=== PATIENT | female | born 1970 | race African-American/Black ===

== ENCOUNTER 2017-10-18 13:52 | Emergency (ER) | payer OTHER | END 2017-10-18 15:39 | disposition home or self-care (01) | LOC: ER 13:52 | DX: M79.662 Pain in left lower leg (principal); I10 Essential (primary) hypertension; Z88.0 Allergy status to penicillin | CPT/HCPCS: 93971; 99284-25 ==

== ENCOUNTER → 2018-01-29 | Outpatient (CLI) | payer OTHER ==
[2017-10-18 13:54] VITALS: BP 127/75
[~2018-01-29] MED LIST: ACET500T68 PO; CALC-335 PO; CEPH500C PO; CYCL10TA2 PO; DOCU-109 PO; HYDR-2766 PO; LISI10TA2 PO; MELO7.5T29 PO; NAPR-514 PO; OSPE60TA2 PO; OXYC-323 PO; OXYC-411 PO; OXYC10TA45 PO; Oxycodone Hcl/Acetaminophen PO; SENN1TAB70 PO; TRIA10.8 NS; ZINC10LO4 PO
--- NOTE | 2018-01-29 13:50 | KCIC ---
EXAM: Pelvic sonogram. HISTORY: Pain. TECHNIQUE: Transabdominal sonographic imaging of the pelvis was performed. COMPARISON: None. FINDINGS: The uterus and ovaries are surgically absent. There is prominent bowel within the bilateral lower quadrants. No free fluid is seen. No mass or cystic lesion is seen. IMPRESSION: 1. Surgically absent uterus and ovaries. 2. Prominent bowel within the bilateral lower quadrants. Electronically signed by: Ca Lau MD (01/29/2018 1:46 PM) [place] [id number]
== END | disposition home or self-care (01) ==
LOC: KCIC US 09:04
PROVIDERS: ATTEND Internal Medicine
DX: R10.2 Pelvic and perineal pain (principal); I10 Essential (primary) hypertension; Z90.710 Acquired absence of both cervix and uterus; Z88.0 Allergy status to penicillin; Z82.49 Family history of ischemic heart disease and other diseases of the circulatory system; Z83.3 Family history of diabetes mellitus
CPT/HCPCS: 76857

== ENCOUNTER → 2019-10-18 | Outpatient (CLI) | payer OTHER ==
[2017-10-18 13:54] VITALS: BP 127/75
[~2019-10-18] MED LIST changes: -HYDR-2766 PO; +HYDR-2769 PO; -OXYC-323 PO; -OXYC10TA45 PO; +OXYC10TA46 PO; +OXYC1TAB15 PO
--- NOTE | 2019-10-18 13:35 | RAD ---
EXAM: Left lower extremity venous Doppler sonogram. HISTORY: Pain and swelling. TECHNIQUE: Hassan scale and color Doppler sonographic evaluation of the left lower extremity veins with spectral waveform analysis was performed. FINDINGS: There is normal color flow, normal compressibility and there are normal spectral waveforms in the common femoral, superficial femoral, popliteal, posterior tibial and greater saphenous veins. IMPRESSION: No Doppler evidence of lower extremity deep venous thrombosis. Electronically signed by: Ca Lau MD (10/18/2019 1:32 PM) [facility]
== END ==
LOC: US 12:08
PROVIDERS: ATTEND Internal Medicine
DX: M79.89 Other specified soft tissue disorders (principal); M79.605 Pain in left leg
CPT/HCPCS: 93971

== ENCOUNTER 2019-10-19 06:31 | Inpatient (IN) | payer OTHER ==
[2019-10-19] VITALS (19 sets, daily range): BP systolic 96–140; BP diastolic 48–87
[~2019-10-19] VITALS: Ht 170.2 cm; Wt 88.9 kg
[~2019-10-19 06:31] MED LIST changes: -OXYC-411 PO; +OXYC1TAB20 PO
[2019-10-19] MEDS ORDERED: FAMOTIDINE 20 MG/2 ML VIAL ONE (06:38)
[2019-10-19] MEDS ORDERED: diphenhydrAMINE 50 MG/ML VIAL ONE (06:38)
[2019-10-19] MEDS ORDERED: methylPREDNISolone SOD SUCC PF 125 MG/2 ML VIAL. ONE (06:39)
[2019-10-19] MEDS ORDERED: PROPOFOL 50 ML IV ONE ×2 (06:57→07:34)
[2019-10-19] MEDS ORDERED: methylPREDNISolone SOD SUCC PF 125 MG/2 ML VIAL. IV ONE (07:00)
[2019-10-19] MEDS ORDERED: diphenhydrAMINE 50 MG/ML VIAL IVP ONE (07:00)
[2019-10-19] MEDS ORDERED: fentaNYL PF VIAL 100 MCG/2 ML VIAL IV PRN (07:00)
[2019-10-19] MEDS ORDERED: IV NORMAL SALINE 1000ML BAG 1,000 ML IV ONE (07:00)
[2019-10-19] MEDS ORDERED: FAMOTIDINE 20 MG/2 ML VIAL IVP ONE (07:00)
[2019-10-19] MEDS: PROPOFOL 100 ML IV PRN ×5 (07:01→20:01)
--- NOTE | 2019-10-19 07:28 | RAD ---
CHEST AP ONLY History: Intubation Comparison: December 24, 2014 Findings: Single view of the chest is submitted. Endotracheal tube courses into the right mainstem bronchus. Enteric catheter courses into the stomach, tip not fully seen. There is some increased right perihilar airspace opacity. There is mild left base interstitial and reticular opacity. No pneumothorax or significant dependent pleural fluid is identified. There is atherosclerotic calcification near aortic arch. Pericardial cardiac silhouette is considered within normal limits given technique. Impression: 1. Endotracheal tube courses into the right mainstem bronchus for which retraction advised. There is increased right perihilar airspace opacity, may be component of atelectasis. There is left base interstitial reticular opacity which may be component of atelectasis or interstitial edema/infiltrate. Critical results were discussed with Dr. Maradiaga in the emergency department at 10/19/2019 7:23 AM. Electronically signed by: Balaji Huerta MD (10/19/2019 7:25 AM) [id number]
[2019-10-19] MEDS: fentaNYL PF VIAL 100 MCG/2 ML VIAL IV PRN ×2 (07:36→09:28)
[2019-10-19 07:46] LABS: BASE EXCESS COOX 0 mmol/L (-3-3); HCO3 COOX 26 mmol/L (21-28); METHEMOGLOBIN 0.4 % (0.0-1.9); OXYHEMOGLOBIN 96.1 %; PCO2 COOX 51 mmHg (35-46); PO2 COOX 113 mmHg (75-108); SAT O2 COOX 97 % (92-99)
[2019-10-19 07:50] LABS: BASO % 0 % (0-3); EOS % 0 % (0-3); HEMATOCRIT 37.2 % (36.0-47.0); HEMOGLOBIN 12.3 g/dL (12.0-15.5); LYMPH # 3.1 x10^3/uL (1.0-4.8); LYMPH % 44 % (24-48); MEAN CORPUSCULAR HEMOGLOBIN 28 pg (25-35); MEAN CORPUSCULAR HGB CONC 33 g/dL (31-37); MEAN CORPUSCULAR VOLUME 85 fL (79-100); MONO # 0.4 x10^3/uL (0.0-1.1); MONO % 5 % (0-9); NEUT # 3.5 x10^3/uL (1.8-7.7); NEUT % 50 % (31-73); PLATELET COUNT 309 x10^3/uL (140-400); RED BLOOD COUNT 4.37 x10^6/uL (3.50-5.40); RED CELL DISTRIBUTION WIDTH 12.9 % (11.5-14.5)
[2019-10-19] MEDS ORDERED: MIDAZOLAM HCL/PF 5 MG/5 ML VIAL. IV ONE (08:00)
[2019-10-19] MEDS ORDERED: SUCCINYLCHOLINE 200 MG/10 ML VIAL. IV ONE (08:00)
[2019-10-19] MEDS ORDERED: ETOMIDATE 20 MG/10 ML VIAL. IV ONE (08:00)
[2019-10-19 08:03] LABS: CALCIUM 8.7 mg/dL (8.5-10.1); GFR 71.3; POTASSIUM 3.5 mmol/L (3.5-5.1)
[2019-10-19 08:07] LABS: ALBUMIN 3.7 g/dL (3.4-5.0); TOTAL BILIRUBIN 0.3 mg/dL (0.2-1.0); TOTAL PROTEIN 7.4 g/dL (6.4-8.2)
[2019-10-19 08:17] LABS: PROTHROMBIN TIME PATIENT 13.3 SEC (11.7-14.0)
--- NOTE | 2019-10-19 08:30 | PHYS DOC ---
Past Medical History Past Medical History: Hypertension Past Surgical History: Hysterectomy, Other Additional Past Surgical Histo: synovial cyst removed L4, back Smoking Status: Former Smoker Alcohol Use: None Drug Use: None General Adult EDM: Chief Complaint: ALLERGIC REACTION HPI: HPI: Patient is a 49-year-old relatively healthy female who is been on lisinopril for a number of years but was recently started on colchicine, prednisone and meloxicam who presents today with acute swelling of her tongue. She states this is worsened over the course of the morning. She says it is been very difficult to talk. History of present illness other than this is very difficult secondary to the patient being unable to speak secondary to very large tongue and severe anxiety [] Review of Systems: Review of Systems: Review of systems is unobtainable secondary to the critical nature of the patient's illness Heart Score: Risk Factors: Risk Factors: DM, Current or recent (<one month) smoker, HTN, HLP, family h istory of CAD, obesity. Risk Scores: Score 0 - 3: 2.5% MACE over next 6 weeks - Discharge Home Score 4 - 6: 20.3% MACE over next 6 weeks - Admit for Clinical Observation Score 7 - 10: 72.7% MACE over next 6 weeks - Early Invasive Strategies Current Medications: Current Medications Medications (Trade) Dose Ordered Sig/Oneyda Start Time Stop Time Status Last Admin Dose Admin Chlorhexidine Gluconate (Peridex) 15 ml BID 10/19/19 09:00 Diphenhydramine HCl (Benadryl) 50 mg 1X ONCE 10/19/19 07:00 10/19/19 07:01 DC 10/19/19 06:37 50 MG Etomidate (Amidate) 20 mg 1X ONCE 10/19/19 08:00 10/19/19 08:01 DC Famotidine (Pepcid Vial) 20 mg 1X ONCE 10/19/19 07:00 10/19/19 07:01 DC 10/19/19 06:37 20 MG Fentanyl Citrate (Fentanyl 2ml Vial) 50 mcg PRN Q1HR PRN 10/19/19 07:00 10/19/19 07:36 50 MCG Methylprednisolone Sodium Succinate (SOLU-Medrol 125MG VIAL) 125 mg 1X ONCE 10/19/19 07:00 10/19/19 07:01 DC 10/19/19 06:37 125 MG Midazolam HCl (Versed) 5 mg 1X ONCE 10/19/19 08:00 10/19/19 08:01 DC Propofol 50 ml @ As Directed STK-MED ONCE 10/19/19 07:34 10/19/19 07:34 DC Sodium Chloride 1,000 ml @ 125 mls/hr Q8H 10/19/19 07:15 10/20/19 07:14 Succinylcholine Chloride (Anectine) 100 mg 1X ONCE 10/19/19 08:00 10/19/19 08:01 DC Allergies: Allergies: Allergies Coded Allergies Type Severity Reaction Last Updated Verified penicillin Allergy Intermediate 06/22/15 Yes Physical Exam: PE: Constitutional: Well developed, well nourished, n patient is acutely ill. [] HENT: Severe angioedema of the tongue difficulty controlling secretions [] Eyes: PERRLA, EOMI, conjunctiva normal, no discharge. [] Neck: Normal range of motion, no tenderness, supple, no stridor. [] Cardiovascular:Heart rate regular rhythm, no murmur [] Lungs & Thorax: Bilateral breath sounds clear to auscultation, tachypneic [] Abdomen: Bowel sounds normal, soft, no tenderness, no masses, no pulsatile masses. [] Skin: Warm, dry, no erythema, no rash. [] Back: No tenderness, no CVA tenderness. [] Extremities: No tenderness, no cyanosis, no clubbing, ROM intact, no edema. [] Neurologic: Alert and oriented X 3, normal motor function, normal sensory function, no focal deficits noted. [] Psychologic: Extremely anxious [] Current Patient Data: Labs: Laboratory Tests Test 10/19/19 07:35 10/19/19 07:40 White Blood Count 7.0 x10^3/uL (4.0-11.0) Red Blood Count 4.37 x10^6/uL (3.50-5.40) Hemoglobin 12.3 g/dL (12.0-15.5) Hematocrit 37.2 % (36.0-47.0) Mean Corpuscular Volume 85 fL (79-100) Mean Corpuscular Hemoglobin 28 pg (25-35) Mean Corpuscular Hemoglobin Concent 33 g/dL (31-37) Red Cell Distribution Width 12.9 % (11.5-14.5) Platelet Count 309 x10^3/uL (140-400) Neutrophils (%) (Auto) 50 % (31-73) Lymphocytes (%) (Auto) 44 % (24-48) Monocytes (%) (Auto) 5 % (0-9) Eosinophils (%) (Auto) 0 % (0-3) Basophils (%) (Auto) 0 % (0-3) Neutrophils # (Auto) 3.5 x10^3/uL (1.8-7.7) Lymphocytes # (Auto) 3.1 x10^3/uL (1.0-4.8) Monocytes # (Auto) 0.4 x10^3/uL (0.0-1.1) Eosinophils # (Auto) 0.0 x10^3/uL (0.0-0.7) Basophils # (Auto) 0.0 x10^3/uL (0.0-0.2) Sodium Level 142 mmol/L (136-145) Potassium Level 3.5 mmol/L (3.5-5.1) Chloride Level 103 mmol/L (98-107) Carbon Dioxide Level 29 mmol/L (21-32) Anion Gap 10 (6-14) Blood Urea Nitrogen 17 mg/dL (7-20) Creatinine 1.0 mg/dL (0.6-1.0) Estimated GFR (Cockcroft-Gault) 71.3 BUN/Creatinine Ratio 17 (6-20) Glucose Level 134 mg/dL (70-99) H Calcium Level 8.7 mg/dL (8.5-10.1) Total Bilirubin 0.3 mg/dL (0.2-1.0) Aspartate Amino Transferase (AST) 28 U/L (15-37) Alanine Aminotransferase (ALT) 51 U/L (14-59) Alkaline Phosphatase 50 U/L (46-116) Total Protein 7.4 g/dL (6.4-8.2) Albumin 3.7 g/dL (3.4-5.0) Albumin/Globulin Ratio 1.0 (1.0-1.7) O2 Saturation 97 % (92-99) Arterial Blood pH 7.33 (7.35-7.45) L Arterial Blood pCO2 at Patient Temp 51 mmHg (35-46) H Arterial Blood pO2 at Patient Temp 113 mmHg (75-108) H Arterial Blood HCO3 26 mmol/L (21-28) Arterial Blood Base Excess 0 mmol/L (-3-3) Oxyhemoglobin 96.1 % Methemoglobin 0.4 % (0.0-1.9) Carbon Monoxide, Quantitative 0.9 % (0.0-1.9) FiO2 50 Laboratory Tests 10/19/19 07:35 Laboratory Tests 10/19/19 07:35 Vital Signs: Vital Signs Date Time Temp Pulse Resp B/P (MAP) Pulse Ox O2 Delivery O2 Flow Rate FiO2 10/19/19 07:36 14 100 Ventilator 10/19/19 06:31 97.8 87 141/70 (93) 97.8 EKG: EKG: [] Radiology/Procedures: Radiology/Procedures: []REASON: intubation PROCEDURE: CHEST AP ONLY CHEST AP ONLY History: Intubation Comparison: December 24, 2014 Findings: Single view of the chest is submitted. Endotracheal tube courses into the right mainstem bronchus. Enteric catheter courses into the stomach, tip not fully seen. There is some increased right perihilar airspace opacity. There is mild left base interstitial and reticular opacity. No pneumothorax or significant dependent pleural fluid is identified. There is atherosclerotic calcification near aortic arch. Pericardial cardiac silhouette is considered within normal limits given technique. Impression: 1. Endotracheal tube courses into the right mainstem bronchus for which retraction advised. There is increased right perihilar airspace opacity, may be component of atelectasis. There is left base interstitial reticular opacity which may be component of atelectasis or interstitial edema/infiltrate. Critical results were discussed with Dr. Maradiaga in the emergency department at 10/19/2019 7:23 AM. Impression: The ET tube was at 24 cm at the lip was pulled back to 22 cm after the interpretation of the x-ray Course & Med Decision Making: Course & Med Decision Making Pertinent Labs and Imaging studies reviewed. (See chart for details) [ED course: Evaluation reveals a 49-year-old female with severe angioedema of the tongue. This was likely aggravated by ARYA inhibitor use. During her brief stay in the emergency department the angioedema worsened and it was determined that she needed emergent intubation for a compromised airway. Please see the intubation procedure note. CRITICAL CARE: Time spent was 35 minutes. This includes medical management, evaluation, reevaluation, discussion with consultants and family. Critical Care does NOT include time spent on separately billed procedures.] Dragon Disclaimer: Dragon Disclaimer: This electronic medical record was generated, in whole or in part, using a voice recognition dictation system. Departure Departure Impression: Primary Impression: ARYA inhibitor-aggravated angioedema Qualified Codes: T78.3XXA - Angioneurotic edema, initial encounter; T46.4X5A - Adverse effect of xbshslwhcfp-lwzvianqgd-sktltc inhibitors, initial encounter Additional Impression: Airway compromise Disposition: ADMITTED INPATIENT Condition: CRITICAL Referrals: CIRA MARCH MD (PCP) Justicifation of Admission Dx: Justifications for Admission: Justification of Admission Dx: Yes Comments: Patient is intubated secondary to severe angioedema with airway compromise Intubation Procedure Intubation Procedure Intub Indication: Respiratory failure Consent: Patient nodded her consent when we informed her of the procedure Medications Used: see nursing note Procedure: The patient was placed in the appropriate position. Intubation was performed [4 Evita blade] 7.5 endotracheal tube. Tube device. Initial confirmation of placement included bilateral breath sounds, tube fogging, adequate chest rise, adequate pulse oximetry reading. A chest x-ray to verify correct placement of the tube showed right mainstem intubation the tube was rabago bsequently pulled back 2 cm The patient tolerated the procedure well. Complications: Given the nature of this intubation there were no complications but this was a very difficult intubation. However, it was not prolonged and the airway was obtained on the first attempt ABI LAW DO Oct 19, 2019 08:30
[2019-10-19] MEDS: FAMOTIDINE 20 MG/2 ML VIAL IVP SCH ×2 (10:00→20:48)
[2019-10-19] MEDS: CHLORHEXIDINE 0.12% 15 ML MOUTHWASH. MM SCH ×2 (10:11→20:02)
[2019-10-19] MEDS: IV NORMAL SALINE 1000ML BAG 1,000 ML IV SCH ×3 (10:12→21:48)
[2019-10-19] MEDS: ENOXAPARIN 40 MG/0.4 ML SYRINGE. SQ SCH (10:12)
--- NOTE | 2019-10-19 10:24 | CONS ---
DATE OF CONSULTATION: 10/19/2019 I was asked to see this 49-year-old lady for acute respiratory failure. The patient is on the ventilator and is sedated, so she is not able to give any information. All of the information was obtained from chart and nursing staff. HISTORY OF PRESENT ILLNESS. She has been on lisinopril for number of years, recently started on colchicine, prednisone, and meloxicam. She presented to the Emergency Room with acute swelling of her tongue, which was getting worse and she was not able to talk. Her tongue was very large. On exam in the Emergency Room, the patient was intubated for airway protection. The patient is currently on the ventilator and sedated on propofol. PAST MEDICAL HISTORY: Hypertension, status post hysterectomy. ALLERGIES: PENICILLIN. MEDICATIONS: Currently, she is on propofol. The patient was given Solu-Medrol, Benadryl and Pepcid in the Emergency Room. SOCIAL HISTORY: Former smoker per chart. FAMILY HISTORY: Unable to obtain. The patient is on the ventilator and sedated. REVIEW OF SYSTEMS: Unable to obtain. The patient is on the ventilator and sedated. PHYSICAL EXAMINATION: GENERAL: This is an overweight lady. VITAL SIGNS: Her O2 saturation on 50% FiO2 is 100%, respiratory rate 16, heart rate 77, blood pressure 140/87, temperature 97.7. HEENT: Normocephalic, atraumatic. Pupils equal, round, reactive to light. Nose is clear. She is orally intubated. She has a large swollen tongue. NECK: Short. No lymphadenopathy or thyromegaly. CARDIOVASCULAR: Regular rate and rhythm. PMI is nondisplaced. CHEST: Inspection is normal. LUNGS: Clear to auscultation. Percussions within normal limit. ABDOMEN: Soft and obese. Bowel sounds are good. There is no mass. EXTREMITIES: There is no edema. LYMPHATICS: There is no lymphadenopathy. NEUROLOGIC: She is sedated on the ventilator. SKIN: Chronic changes. LABORATORY DATA: I reviewed the following lab data: Chest x-ray shows ET tube is in right main stem bronchus. There is right perihilar infiltrate/atelectasis. WBC 7, hemoglobin 12.3, platelets 309. Sodium 142, potassium 3.5, chloride 103, CO2 of 29, glucose 134, BUN 17, creatinine 1. ABG, pH 7.33, pCO2 of 51, pO2 of 113. IMPRESSION: 1. Acute respiratory failure secondary to angioedema. 2. Angioedema secondary to ARYA inhibitor. 3. Abnormal chest x-ray. 4. Hypertension. PLAN AND RECOMMENDATIONS: 1. Titrate FiO2 to keep O2 saturation more than 94%. 2. Continue ventilator support. Ventilator setting was reviewed. We will do ABG. Change vent setting per ABG. 3. Pull out ET tube. It is a pull out about 2 cm. We will pull out another centimeter and do a chest x-ray to confirm ET tube position. I will repeat chest x-ray. If the perihilar infiltrate/atelectasis is not resolved at some point, she will need a CT of the chest. 4. Continue steroid. 5. Pepcid for stress ulcer prophylaxis. 6. Lovenox for DVT prophylaxis. 7. Continue ventilator support until the patient is more stable and tongue edema is improved. 8. The findings and recommendations were discussed with RN and RT and attending physician Dr. Plummer. Thank you very much for allowing me to participate in care of this very nice lady. ADEEL CORTEZ M.D. DR: CHETNA/anita JOB#: [id number] / [id number]
--- NOTE | 2019-10-19 10:40 | RAD ---
AP chest x-ray HISTORY: Endotracheal intubation for respiratory failure. COMPARISON: Chest x-ray October 19, 2019. FINDINGS: Nasogastric tube extends to the left upper quadrant abdomen outside the [id number]. Endotracheal tube tip 3 cm above the destiny. Heart size normal. Aortic arch calcified plaque. No pneumothorax. No pleural effusions. Mild perihilar opacities again demonstrated although the interstitial densities have decreased could indicate mild edema or pneumonitis including atypical viral infection. Bones are unremarkable. IMPRESSION: Lines and tubes as described above. See above. Electronically signed by: Alex Meeks MD (10/19/2019 10:37 AM) [facility]
--- NOTE | 2019-10-19 11:09 | HP ---
ADMIT DATE: ADMITTING PHYSICIAN: Dr. Segura. HISTORY OF PRESENT ILLNESS: This 49 years old female presented to [facility] Emergency Room today with acute swelling of the tongue. She has been on lisinopril for a long time. Apparently yesterday she had seen Dr. Segura for likely acute gout and was started on colchicine, Meloxicam, and prednisone. However, she had an extremely large tongue and had difficulty breathing and was intubated in the Emergency Room and is sedated. SYSTEMS REVIEW: Unable to do systems review as the patient is sedated. The patient was given IV steroids in the Emergency Room and was intubated and transferred to Intensive Care Unit. PAST MEDICAL HISTORY: Positive for hypertension. SURGICAL HISTORY: The patient has had a surgery for uterine fibroids and had hysterectomy done on 12/31/2014, there was abdominal hysterectomy with bilateral salpingo-oophorectomy and myomectomy. She had lumbar decompression and removal of synovial cyst at L4-L5 in 10/2014. On 06/29/2015, she had lumbar hemilaminotomy with decompression of L4-L5 and L4-L5 posterior lateral fusion and anterior lumbar diskectomy and L4-L5 interbody fusion. ALLERGIES: THE PATIENT IS ALLERGIC TO PENICILLIN. MEDICATIONS: Reviewed. She has been on lisinopril. Yesterday she was started on colchicine, prednisone and Mobic or Meloxicam. SOCIAL HISTORY: History of smoking for last 20 years. No history of alcoholism or drug abuse. FAMILY HISTORY: Positive for cancer, diabetes, and hypertension. PHYSICAL EXAMINATION: GENERAL: The patient is a middle-aged female who is sedated on mechanical ventilation in the Intensive Care Unit. VITAL SIGNS: Temperature 97.7, pulse 77 per minute, respirations 16 per minute, blood pressure 140/87 mmHg. HEENT: The patient has a huge tongue. No swelling of the lips or face noted. LUNGS: Decreased breath sounds at bases. CARDIOVASCULAR: S1, S2 regular. ABDOMEN: Soft, nontender. EXTREMITIES: No edema. I cannot find any particular joint that is swollen, tender or red. CENTRAL NERVOUS SYSTEM: Sedated. LABORATORY FINDINGS: WBC count 7, hemoglobin 12.3. Sodium 142, potassium 3.5, BUN 17, creatinine 1. ABG: pH 7.33, pCO2 of 51, pO2 of 113 on FiO2 of 50%. INR 1.1. Chest x-ray, right perihilar and left base interstitial opacity. IMPRESSION: 1. Acute respiratory failure due to acute angioedema likely due to lisinopril. 2. Possible recent acute gout. 3. Hypertension. 4. Acute angioedema. PLAN: The patient is intubated and sedated in the Intensive Care Unit, started on IV Solu-Medrol, IV Pepcid and IV Benadryl as needed. Dr. Cazares has been consulted for pulmonary evaluation and management. I have discussed with her. For details, please refer to the orders. We will review the office records to see when all these medications were given to her. For details, please refer to the orders. SOILA BOURNE MD DR: DARNELL/anita JOB#: [id number] / [id number]
[2019-10-19] MEDS: methylPREDNISolone SOD SUCC PF 40 MG/ML VIAL. IV SCH ×2 (16:32→21:48)
[2019-10-19] MEDS: DOCUSATE SODIUM 100 MG CAPSULE. PO SCH (20:48)
[2019-10-20] VITALS (23 sets, daily range): BP systolic 93–118; BP diastolic 60–74
[2019-10-20] MEDS: PROPOFOL 100 ML IV PRN ×7 (02:53→23:47)
[2019-10-20 04:11] LABS: BASO % 0 % (0-3); EOS % 0 % (0-3); HEMATOCRIT 31.9 % (36.0-47.0); HEMOGLOBIN 10.5 g/dL (12.0-15.5); LYMPH # 1.8 x10^3/uL (1.0-4.8); LYMPH % 13 % (24-48); MEAN CORPUSCULAR HEMOGLOBIN 28 pg (25-35); MEAN CORPUSCULAR HGB CONC 33 g/dL (31-37); MEAN CORPUSCULAR VOLUME 85 fL (79-100); MONO # 0.3 x10^3/uL (0.0-1.1); MONO % 2 % (0-9); NEUT # 11.4 x10^3/uL (1.8-7.7); NEUT % 84 % (31-73); PLATELET COUNT 269 x10^3/uL (140-400); RED BLOOD COUNT 3.74 x10^6/uL (3.50-5.40); RED CELL DISTRIBUTION WIDTH 13.1 % (11.5-14.5); WHITE BLOOD COUNT 13.6 x10^3/uL (4.0-11.0)
[2019-10-20 04:27] LABS: ALBUMIN 3.2 g/dL (3.4-5.0); ALBUMIN/GLOBULIN RATIO 0.9 (1.0-1.7); C-REACTIVE PROTEIN 9.2 mg/L (0-3.3); CALCIUM 8.3 mg/dL (8.5-10.1); CREATININE 0.8 mg/dL (0.6-1.0); GFR 92.2; POTASSIUM 3.2 mmol/L (3.5-5.1); TOTAL BILIRUBIN 0.1 mg/dL (0.2-1.0); TOTAL PROTEIN 6.6 g/dL (6.4-8.2); URIC ACID 3.4 mg/dL (2.6-6.0)
[2019-10-20] MEDS: methylPREDNISolone SOD SUCC PF 40 MG/ML VIAL. IV SCH ×3 (06:08→23:34)
--- NOTE | 2019-10-20 06:25 | NUR ---
Dr Cazares at bedside--updated on patient's condition, reviewed sedation medications and Solu-Medrol dosing, and discussed angioedema which has minimally improved. Per Dr Cazares, plan to keep patient intubated/sedated today, check air leak tomorrow with possible extubation if angioedema improved.
--- NOTE | 2019-10-20 06:44 | PDOC ---
PULMONARY PROGRESS NOTES Subjective on vent, sedated, propofol, fentanyl, small ett secretion tongue still edematous Vitals Vital Signs Date Time Temp Pulse Resp B/P (MAP) Pulse Ox O2 Delivery O2 Flow Rate FiO2 10/20/19 06:00 5 16 102/70 (81) 40 Ventilator 10/20/19 04:00 97.9 97.9 Comments unable to obtain on vent sedated HEENT: Other (nc at perrl orally intubated tongue edema nose clear neck no lad no thyromegaly) Lungs: Clear Cardiovascular: S1, S2 Abdomen: Soft, Non-tender, Other (no mass) Extremities: No Edema Skin: Warm Labs Laboratory Tests Test 10/19/19 07:35 10/19/19 07:40 10/20/19 04:00 White Blood Count 7.0 x10^3/uL (4.0-11.0) 13.6 x10^3/uL (4.0-11.0) Red Blood Count 4.37 x10^6/uL (3.50-5.40) 3.74 x10^6/uL (3.50-5.40) Hemoglobin 12.3 g/dL (12.0-15.5) 10.5 g/dL (12.0-15.5) Hematocrit 37.2 % (36.0-47.0) 31.9 % (36.0-47.0) Mean Corpuscular Volume 85 fL (79-100) 85 fL (79-100) Mean Corpuscular Hemoglobin 28 pg (25-35) 28 pg (25-35) Mean Corpuscular Hemoglobin Concent 33 g/dL (31-37) 33 g/dL (31-37) Red Cell Distribution Width 12.9 % (11.5-14.5) 13.1 % (11.5-14.5) Platelet Count 309 x10^3/uL (140-400) 269 x10^3/uL (140-400) Neutrophils (%) (Auto) 50 % (31-73) 84 % (31-73) Lymphocytes (%) (Auto) 44 % (24-48) 13 % (24-48) Monocytes (%) (Auto) 5 % (0-9) 2 % (0-9) Eosinophils (%) (Auto) 0 % (0-3) 0 % (0-3) Basophils (%) (Auto) 0 % (0-3) 0 % (0-3) Neutrophils # (Auto) 3.5 x10^3/uL (1.8-7.7) 11.4 x10^3/uL (1.8-7.7) Lymphocytes # (Auto) 3.1 x10^3/uL (1.0-4.8) 1.8 x10^3/uL (1.0-4.8) Monocytes # (Auto) 0.4 x10^3/uL (0.0-1.1) 0.3 x10^3/uL (0.0-1.1) Eosinophils # (Auto) 0.0 x10^3/uL (0.0-0.7) 0.0 x10^3/uL (0.0-0.7) Basophils # (Auto) 0.0 x10^3/uL (0.0-0.2) 0.0 x10^3/uL (0.0-0.2) Prothrombin Time 13.3 SEC (11.7-14.0) Prothromb Time International Ratio 1.1 (0.8-1.1) Activated Partial Thromboplast Time 25 SEC (24-38) Sodium Level 142 mmol/L (136-145) 138 mmol/L (136-145) Potassium Level 3.5 mmol/L (3.5-5.1) 3.2 mmol/L (3.5-5.1) Chloride Level 103 mmol/L (98-107) 104 mmol/L (98-107) Carbon Dioxide Level 29 mmol/L (21-32) 23 mmol/L (21-32) Anion Gap 10 (6-14) 11 (6-14) Blood Urea Nitrogen 17 mg/dL (7-20) 18 mg/dL (7-20) Creatinine 1.0 mg/dL (0.6-1.0) 0.8 mg/dL (0.6-1.0) Estimated GFR (Cockcroft-Gault) 71.3 92.2 BUN/Creatinine Ratio 17 (6-20) 23 (6-20) Glucose Level 134 mg/dL (70-99) 166 mg/dL (70-99) Calcium Level 8.7 mg/dL (8.5-10.1) 8.3 mg/dL (8.5-10.1) Total Bilirubin 0.3 mg/dL (0.2-1.0) 0.1 mg/dL (0.2-1.0) Aspartate Amino Transf (AST/SGOT) 28 U/L (15-37) 17 U/L (15-37) Alanine Aminotransferase (ALT/SGPT) 51 U/L (14-59) 36 U/L (14-59) Alkaline Phosphatase 50 U/L (46-116) 49 U/L (46-116) Total Protein 7.4 g/dL (6.4-8.2) 6.6 g/dL (6.4-8.2) Albumin 3.7 g/dL (3.4-5.0) 3.2 g/dL (3.4-5.0) Albumin/Globulin Ratio 1.0 (1.0-1.7) 0.9 (1.0-1.7) O2 Saturation 97 % (92-99) Arterial Blood pH 7.33 (7.35-7.45) Arterial Blood pCO2 at Patient Temp 51 mmHg (35-46) Arterial Blood pO2 at Patient Temp 113 mmHg (75-108) Arterial Blood HCO3 26 mmol/L (21-28) Arterial Blood Base Excess 0 mmol/L (-3-3) Oxyhemoglobin 96.1 % Methemoglobin 0.4 % (0.0-1.9) Carbon Monoxide, Quantitative 0.9 % (0.0-1.9) FiO2 50 Uric Acid 3.4 mg/dL (2.6-6.0) C-Reactive Protein, Quantitative 9.2 mg/L (0-3.3) Laboratory Tests Test 10/19/19 07:35 10/19/19 07:40 10/20/19 04:00 White Blood Count 7.0 x10^3/uL (4.0-11.0) 13.6 x10^3/uL (4.0-11.0) Red Blood Count 4.37 x10^6/uL (3.50-5.40) 3.74 x10^6/uL (3.50-5.40) Hemoglobin 12.3 g/dL (12.0-15.5) 10.5 g/dL (12.0-15.5) Hematocrit 37.2 % (36.0-47.0) 31.9 % (36.0-47.0) Mean Corpuscular Volume 85 fL (79-100) 85 fL (79-100) Mean Corpuscular Hemoglobin 28 pg (25-35) 28 pg (25-35) Mean Corpuscular Hemoglobin Concent 33 g/dL (31-37) 33 g/dL (31-37) Red Cell Distribution Width 12.9 % (11.5-14.5) 13.1 % (11.5-14.5) Platelet Count 309 x10^3/uL (140-400) 269 x10^3/uL (140-400) Neutrophils (%) (Auto) 50 % (31-73) 84 % (31-73) Lymphocytes (%) (Auto) 44 % (24-48) 13 % (24-48) Monocytes (%) (Auto) 5 % (0-9) 2 % (0-9) Eosinophils (%) (Auto) 0 % (0-3) 0 % (0-3) Basophils (%) (Auto) 0 % (0-3) 0 % (0-3) Neutrophils # (Auto) 3.5 x10^3/uL (1.8-7.7) 11.4 x10^3/uL (1.8-7.7) Lymphocytes # (Auto) 3.1 x10^3/uL (1.0-4.8) 1.8 x10^3/uL (1.0-4.8) Monocytes # (Auto) 0.4 x10^3/uL (0.0-1.1) 0.3 x10^3/uL (0.0-1.1) Eosinophils # (Auto) 0.0 x10^3/uL (0.0-0.7) 0.0 x10^3/uL (0.0-0.7) Basophils # (Auto) 0.0 x10^3/uL (0.0-0.2) 0.0 x10^3/uL (0.0-0.2) Prothrombin Time 13.3 SEC (11.7-14.0) Prothromb Time International Ratio 1.1 (0.8-1.1) Activated Partial Thromboplast Time 25 SEC (24-38) Sodium Level 142 mmol/L (136-145) 138 mmol/L (136-145) Potassium Level 3.5 mmol/L (3.5-5.1) 3.2 mmol/L (3.5-5.1) Chloride Level 103 mmol/L (98-107) 104 mmol/L (98-107) Carbon Dioxide Level 29 mmol/L (21-32) 23 mmol/L (21-32) Anion Gap 10 (6-14) 11 (6-14) Blood Urea Nitrogen 17 mg/dL (7-20) 18 mg/dL (7-20) Creatinine 1.0 mg/dL (0.6-1.0) 0.8 mg/dL (0.6-1.0) Estimated GFR (Cockcroft-Gault) 71.3 92.2 BUN/Creatinine Ratio 17 (6-20) 23 (6-20) Glucose Level 134 mg/dL (70-99) 166 mg/dL (70-99) Calcium Level 8.7 mg/dL (8.5-10.1) 8.3 mg/dL (8.5-10.1) Total Bilirubin 0.3 mg/dL (0.2-1.0) 0.1 mg/dL (0.2-1.0) Aspartate Amino Transf (AST/SGOT) 28 U/L (15-37) 17 U/L (15-37) Alanine Aminotransferase (ALT/SGPT) 51 U/L (14-59) 36 U/L (14-59) Alkaline Phosphatase 50 U/L (46-116) 49 U/L (46-116) Total Protein 7.4 g/dL (6.4-8.2) 6.6 g/dL (6.4-8.2) Albumin 3.7 g/dL (3.4-5.0) 3.2 g/dL (3.4-5.0) Albumin/Globulin Ratio 1.0 (1.0-1.7) 0.9 (1.0-1.7) O2 Saturation 97 % (92-99) Arterial Blood pH 7.33 (7.35-7.45) Arterial Blood pCO2 at Patient Temp 51 mmHg (35-46) Arterial Blood pO2 at Patient Temp 113 mmHg (75-108) Arterial Blood HCO3 26 mmol/L (21-28) Arterial Blood Base Excess 0 mmol/L (-3-3) Oxyhemoglobin 96.1 % Methemoglobin 0.4 % (0.0-1.9) Carbon Monoxide, Quantitative 0.9 % (0.0-1.9) FiO2 50 Uric Acid 3.4 mg/dL (2.6-6.0) C-Reactive Protein, Quantitative 9.2 mg/L (0-3.3) Medications Active Scripts Medications Dose Route/Sig Max Daily Dose Days Date Category Dose Instructions Naproxen 500 Mg Tablet 1 Tab PO BID 10 10/18/17 Rx Meloxicam 7.5 Mg Tablet 7.5 Mg PO DAILY 01/14/16 Reported Colace (Docusate Sodium) 100 Mg Capsule 100 Mg PO BID 06/30/15 Rx Oxycodone-Acetaminophen 10-325 (Oxycodone Hcl/Acetaminophen) 1 Each Tablet 1 Tab PO PRN Q4HRS PRN 06/30/15 Rx Osphena (Ospemifene) 60 Mg Tablet 60 Mg PO DAILY 06/22/15 Reported Soren-Mag Tablet Chewable (Calcium Carb/Magnesium Cmb #10) 1 Each Tab.chew 1 Each PO 12/24/14 Reported Nasacort (Triamcinolone Acetonide) 10.8 Ml [place] Unknown Dose NS DAILY 12/24/14 Reported [Oxycodone Hcl/Acetaminophen] 1 TAB Tablet 2 Tab PO PRN Q4HRS PRN 11/28/14 Rx [Oxycodone Hcl/Acetaminophen] 1 TAB Tablet 1 Tab PO PRN Q4HRS PRN 11/28/14 Rx Colace (Docusate Sodium) 100 Mg Capsule 100 Mg PO BID 11/28/14 Rx Cyclobenzaprine Hcl 10 Mg Tablet 10 Mg PO PRN TID PRN 11/19/14 Reported LAST DOSE GIVEN: DATE:11-28-14 TIME:0300 NEXT DOSE DUE: DATE:11-28-14 TIME:9:00 p.m. Stool Softener Tablet (Sennosides/Docusate Sodium) 1 Each Tablet 1 Each PO DAILY 11/19/14 Reported LAST DOSE GIVEN: DATE:11-28-14 TIME:9:00 a.m. NEXT DOSE DUE: DATE:11-29-14 TIME:9:00 a.m. Lisinopril 10 Mg Tablet 10 Mg PO DAILY 11/19/14 Reported LAST DOSE GIVEN: DATE:11-28-14 TIME:9:00 a.m. NEXT DOSE DUE: DATE:11-29-14 TIME:9:00 a.m. Comments cxr 10/18 reviewed, r hilar prominance, ett ok Impression . IMPRESSION: 1. Acute respiratory failure secondary to angioedema. 2. Angioedema secondary to ? ARYA inhibitor. 3. Abnormal chest x-ray. 4. Hypertension. 5. electrolyte imbalance, hypo k Plan . PLAN AND RECOMMENDATIONS: 1. Titrate FiO2 to keep O2 saturation more than 94%. 2. Continue ventilator support. Ventilator setting was reviewed. We will do ABG. Change vent setting per ABG. 3. repeat chest x-ray still shows r hilar prominance, will do cxr in am. if it is not resolved, she will need a CT of the chest. 4. Continue steroid. 5. Pepcid for stress ulcer prophylaxis. 6. Lovenox for DVT prophylaxis. 7. Continue ventilator support until the patient is more stable and tongue edema is improved. she still has significant tongue edema not ready for sbt 8. replace k The findings and recommendations were discussed with RN and RT critically ill, cc time 30 min no overlap ADEEL CORTEZ MD Oct 20, 2019 06:44
[2019-10-20] MEDS: diphenhydrAMINE 50 MG/ML VIAL IVP PRN ×2 (08:15→15:02)
[2019-10-20] MEDS: CHLORHEXIDINE 0.12% 15 ML MOUTHWASH. MM SCH ×2 (08:16→23:34)
[2019-10-20] MEDS: FAMOTIDINE 20 MG/2 ML VIAL IVP SCH ×2 (08:16→23:34)
[2019-10-20] MEDS: DOCUSATE SODIUM 100 MG CAPSULE. PO SCH ×2 (08:17→21:00)
[2019-10-20] MEDS: ENOXAPARIN 40 MG/0.4 ML SYRINGE. SQ SCH (08:17)
[2019-10-20 09:24] LABS: BASE EXCESS ABG -3 mmol/L (-3-3); HCO3 ABG 20 mmol/L (21-28); PCO2 ABG 30 mmHg (35-46); PO2 ABG 124 mmHg (75-108); SAT O2 ABG 98 % (92-99)
[2019-10-20 09:33] LABS: FIO2 ABG VENT 40%
[2019-10-20] MEDS ORDERED: POTASSIUM CHLORIDE 20 MEQ in IV NORMAL SALINE 1000ML BAG 1,000 ML IV SCH (10:00)
--- NOTE | 2019-10-20 10:00 | PDOC ---
IM PROGRESS NOTES- Subjective Subjective None. Patient is sedated. Objective Vitals/I&O Vital Signs Date Time Temp Pulse Resp B/P (MAP) Pulse Ox O2 Delivery O2 Flow Rate FiO2 10/20/19 08:32 100 10/20/19 08:05 Ventilator 10/20/19 07:00 57 16 101/71 (81) 10/20/19 04:00 97.9 97.9 I & O 10/19/19 10/19/19 10/20/19 15:00 23:00 07:00 Intake Total 1302 ml 1066 ml 1955 ml Output Total 320 ml 555 ml 1050 ml Balance 982 ml 511 ml 905 ml Physical Exam Physical Exam he patient is a middle-aged female who is sedated on mechanical ventilation in the Intensive Care Unit. HEENT: The patient has a huge tongue. No swelling of the lips or face noted. LUNGS: Decreased breath sounds at bases. CARDIOVASCULAR: S1, S2 regular. ABDOMEN: Soft, nontender. EXTREMITIES: No edema. I cannot find any particular joint that is swollen, tender or red. CENTRAL NERVOUS SYSTEM: Sedated. Labs Laboratory Tests Test 10/20/19 04:00 10/20/19 09:00 White Blood Count 13.6 x10^3/uL (4.0-11.0) H Red Blood Count 3.74 x10^6/uL (3.50-5.40) Hemoglobin 10.5 g/dL (12.0-15.5) L Hematocrit 31.9 % (36.0-47.0) L Mean Corpuscular Volume 85 fL (79-100) Mean Corpuscular Hemoglobin 28 pg (25-35) Mean Corpuscular Hemoglobin Concent 33 g/dL (31-37) Red Cell Distribution Width 13.1 % (11.5-14.5) Platelet Count 269 x10^3/uL (140-400) Neutrophils (%) (Auto) 84 % (31-73) H Lymphocytes (%) (Auto) 13 % (24-48) L Monocytes (%) (Auto) 2 % (0-9) Eosinophils (%) (Auto) 0 % (0-3) Basophils (%) (Auto) 0 % (0-3) Neutrophils # (Auto) 11.4 x10^3/uL (1.8-7.7) H Lymphocytes # (Auto) 1.8 x10^3/uL (1.0-4.8) Monocytes # (Auto) 0.3 x10^3/uL (0.0-1.1) Eosinophils # (Auto) 0.0 x10^3/uL (0.0-0.7) Basophils # (Auto) 0.0 x10^3/uL (0.0-0.2) Sodium Level 138 mmol/L (136-145) Potassium Level 3.2 mmol/L (3.5-5.1) L Chloride Level 104 mmol/L (98-107) Carbon Dioxide Level 23 mmol/L (21-32) Anion Gap 11 (6-14) Blood Urea Nitrogen 18 mg/dL (7-20) Creatinine 0.8 mg/dL (0.6-1.0) Estimated GFR (Cockcroft-Gault) 92.2 BUN/Creatinine Ratio 23 (6-20) H Glucose Level 166 mg/dL (70-99) H Uric Acid 3.4 mg/dL (2.6-6.0) Calcium Level 8.3 mg/dL (8.5-10.1) L Total Bilirubin 0.1 mg/dL (0.2-1.0) L Aspartate Amino Transferase (AST) 17 U/L (15-37) Alanine Aminotransferase (ALT) 36 U/L (14-59) Alkaline Phosphatase 49 U/L (46-116) C-Reactive Protein, Quantitative 9.2 mg/L (0-3.3) H Total Protein 6.6 g/dL (6.4-8.2) Albumin 3.2 g/dL (3.4-5.0) L Albumin/Globulin Ratio 0.9 (1.0-1.7) L O2 Saturation 98 % (92-99) Arterial Blood pH 7.44 (7.35-7.45) Arterial Blood pCO2 at Patient Temp 30 mmHg (35-46) L Arterial Blood pO2 at Patient Temp 124 mmHg (75-108) H Arterial Blood HCO3 20 mmol/L (21-28) L Arterial Blood Base Excess -3 mmol/L (-3-3) FiO2 Vent 40% Laboratory Tests 10/20/19 04:00 Laboratory Tests 10/20/19 04:00 Meds Current Medications Medications (Trade) Dose Ordered Sig/Oneyda Route PRN Reason Start Time Stop Time Status Last Admin Dose Admin Methylprednisolone Sodium Succinate (SOLU-Medrol 40MG VIAL) 40 mg Q8HRS IV 10/19/19 14:00 10/20/19 06:08 Famotidine (Pepcid Vial) 20 mg BID IVP 10/19/19 10:00 10/20/19 08:16 Enoxaparin Sodium (Lovenox 40mg Syringe) 40 mg Q24H SQ 10/19/19 10:00 10/20/19 08:17 Fentanyl Citrate 30 ml @ 2.5 mls/hr CONT PRN IV SEE PROTOCOL 10/19/19 10:30 10/20/19 08:32 Diphenhydramine HCl (Benadryl) 25 mg PRN Q6HRS PRN IVP ITCHING 10/19/19 10:45 10/20/19 08:15 Assessment Assessment 1. Acute respiratory failure due to acute angioedema likely due to lisinopril. 2. Acute gout, left ankle 3. Hypertension. 4. Acute angioedema. PLAN: The patient is intubated and sedated in the Intensive Care Unit, started on IV Solu-Medrol, IV Pepcid and IV Benadryl as needed. Dr. Debora Tatum has been consulted for pulmonary evaluation and management. I have discussed with her. For details, please refer to the orders. We will review the office records to see when all these medications were given to her. For details, please refer to the orders. Acute respiratory failure due to angioedema-tongue is still swollen. Continue mechanical ventilation. Discussed with sports commentator. Gout of left ankle and foot -office records reviewed. Hypokalemia-replace potassium Hyperglycemia-monitor with low-dose sliding scale insulin. Dysphagia-remains n.p.o. IV normal saline. Plan Plan For more details regarding further plans, please refer to the orders. Justicifation of Admission Dx: Justifications for Admission: Justification of Admission Dx: Yes Respiratory Failure: Airway Obstruction SOILA BOURNE MD Oct 20, 2019 10:00
[2019-10-20] MEDS: POTASSIUM CHLORIDE 10MEQ 100 ML IV SCH ×2 (10:27→12:46)
[2019-10-20] MEDS ORDERED: POTASSIUM CHLORIDE 20 MEQ TABLET.ER. PO ONE (10:45)
[2019-10-20] MEDS: INSULIN LISPRO 300 UNITS/3 ML VIAL. SQ SCH ×2 (11:30→16:30)
[2019-10-21] VITALS (24 sets, daily range): BP systolic 105–149; BP diastolic 59–88
[2019-10-21 04:28] LABS: BASO # 0.1 x10^3/uL (0.0-0.2); BASO % 1 % (0-3); EOS % 0 % (0-3); HEMATOCRIT 32.9 % (36.0-47.0); LYMPH # 1.6 x10^3/uL (1.0-4.8); LYMPH % 12 % (24-48); MEAN CORPUSCULAR HEMOGLOBIN 29 pg (25-35); MEAN CORPUSCULAR HGB CONC 34 g/dL (31-37); MEAN CORPUSCULAR VOLUME 85 fL (79-100); MONO # 0.3 x10^3/uL (0.0-1.1); MONO % 2 % (0-9); NEUT # 11.1 x10^3/uL (1.8-7.7); NEUT % 85 % (31-73); PLATELET COUNT 293 x10^3/uL (140-400); RED BLOOD COUNT 3.87 x10^6/uL (3.50-5.40); RED CELL DISTRIBUTION WIDTH 13.1 % (11.5-14.5); WHITE BLOOD COUNT 13.1 x10^3/uL (4.0-11.0)
[2019-10-21] MEDS: PROPOFOL 100 ML IV PRN ×6 (04:29→23:06)
[2019-10-21 04:45] LABS: ALBUMIN 3.1 g/dL (3.4-5.0); ALBUMIN/GLOBULIN RATIO 0.9 (1.0-1.7); CALCIUM 8.4 mg/dL (8.5-10.1); CREATININE 0.8 mg/dL (0.6-1.0); GFR 92.2; TOTAL BILIRUBIN 0.2 mg/dL (0.2-1.0); TOTAL PROTEIN 6.6 g/dL (6.4-8.2)
[2019-10-21] MEDS: methylPREDNISolone SOD SUCC PF 40 MG/ML VIAL. IV SCH ×3 (05:58→22:09)
[2019-10-21] MEDS: INSULIN LISPRO 300 UNITS/3 ML VIAL. SQ SCH ×4 (07:50→23:32)
[2019-10-21 08:40] LABS: BASE EXCESS ABG -5 mmol/L (-3-3); HCO3 ABG 18 mmol/L (21-28); PCO2 ABG 30 mmHg (35-46); PO2 ABG 118 mmHg (75-108); SAT O2 ABG 98 % (92-99)
[2019-10-21] MEDS: CHLORHEXIDINE 0.12% 15 ML MOUTHWASH. MM SCH ×2 (08:41→19:45)
[2019-10-21] MEDS: ENOXAPARIN 40 MG/0.4 ML SYRINGE. SQ SCH (08:41)
[2019-10-21 08:42] LABS: FIO2 ABG 40%
[2019-10-21] MEDS: FAMOTIDINE 20 MG/2 ML VIAL IVP SCH ×2 (08:42→19:45)
[2019-10-21] MEDS: DOCUSATE SODIUM 100 MG CAPSULE. PO SCH ×2 (08:46→20:14)
--- NOTE | 2019-10-21 09:15 | RAD ---
AP chest. HISTORY: Follow-up right hilar prominence AP view was taken of the chest. Endotracheal tube and NG tube are unchanged. There is elevation of the right diaphragm. Patient is rotated to the left which makes right hilum seems prominent. No new infiltrates are noted. IMPRESSION: 1. No change from the prior study. Electronically signed by: Chris Al MD (10/21/2019 9:13 AM) [id number]
--- NOTE | 2019-10-21 09:24 | PDOC ---
PULMONARY PROGRESS NOTES Subjective on vent, sedated, propofol, fentanyl, small ett secretion tongue with less swelling Vitals Vital Signs Date Time Temp Pulse Resp B/P (MAP) Pulse Ox O2 Delivery O2 Flow Rate FiO2 10/21/19 09:00 46 16 127/72 (90) 100 Ventilator 10/21/19 08:00 98.1 98.1 Comments unable to obtain on vent sedated HEENT: Other (nc at perrl orally intubated tongue edema nose clear neck no lad no thyromegaly) Lungs: Clear Cardiovascular: S1, S2 Abdomen: Soft, Non-tender, Other (no mass) Extremities: No Edema Skin: Warm Labs Laboratory Tests Test 10/20/19 04:00 10/20/19 09:00 10/20/19 12:50 10/20/19 17:01 White Blood Count 13.6 x10^3/uL (4.0-11.0) Red Blood Count 3.74 x10^6/uL (3.50-5.40) Hemoglobin 10.5 g/dL (12.0-15.5) Hematocrit 31.9 % (36.0-47.0) Mean Corpuscular Volume 85 fL (79-100) Mean Corpuscular Hemoglobin 28 pg (25-35) Mean Corpuscular Hemoglobin Concent 33 g/dL (31-37) Red Cell Distribution Width 13.1 % (11.5-14.5) Platelet Count 269 x10^3/uL (140-400) Neutrophils (%) (Auto) 84 % (31-73) Lymphocytes (%) (Auto) 13 % (24-48) Monocytes (%) (Auto) 2 % (0-9) Eosinophils (%) (Auto) 0 % (0-3) Basophils (%) (Auto) 0 % (0-3) Neutrophils # (Auto) 11.4 x10^3/uL (1.8-7.7) Lymphocytes # (Auto) 1.8 x10^3/uL (1.0-4.8) Monocytes # (Auto) 0.3 x10^3/uL (0.0-1.1) Eosinophils # (Auto) 0.0 x10^3/uL (0.0-0.7) Basophils # (Auto) 0.0 x10^3/uL (0.0-0.2) Sodium Level 138 mmol/L (136-145) Potassium Level 3.2 mmol/L (3.5-5.1) Chloride Level 104 mmol/L (98-107) Carbon Dioxide Level 23 mmol/L (21-32) Anion Gap 11 (6-14) Blood Urea Nitrogen 18 mg/dL (7-20) Creatinine 0.8 mg/dL (0.6-1.0) Estimated GFR (Cockcroft-Gault) 92.2 BUN/Creatinine Ratio 23 (6-20) Glucose Level 166 mg/dL (70-99) Uric Acid 3.4 mg/dL (2.6-6.0) Calcium Level 8.3 mg/dL (8.5-10.1) Total Bilirubin 0.1 mg/dL (0.2-1.0) Aspartate Amino Transf (AST/SGOT) 17 U/L (15-37) Alanine Aminotransferase (ALT/SGPT) 36 U/L (14-59) Alkaline Phosphatase 49 U/L (46-116) C-Reactive Protein, Quantitative 9.2 mg/L (0-3.3) Total Protein 6.6 g/dL (6.4-8.2) Albumin 3.2 g/dL (3.4-5.0) Albumin/Globulin Ratio 0.9 (1.0-1.7) O2 Saturation 98 % (92-99) Arterial Blood pH 7.44 (7.35-7.45) Arterial Blood pCO2 at Patient Temp 30 mmHg (35-46) Arterial Blood pO2 at Patient Temp 124 mmHg (75-108) Arterial Blood HCO3 20 mmol/L (21-28) Arterial Blood Base Excess -3 mmol/L (-3-3) FiO2 Vent 40% Glucose (Fingerstick) 133 mg/dL (70-99) 157 mg/dL (70-99) Test 10/21/19 00:56 10/21/19 04:10 10/21/19 08:35 Glucose (Fingerstick) 148 mg/dL (70-99) White Blood Count 13.1 x10^3/uL (4.0-11.0) Red Blood Count 3.87 x10^6/uL (3.50-5.40) Hemoglobin 11.0 g/dL (12.0-15.5) Hematocrit 32.9 % (36.0-47.0) Mean Corpuscular Volume 85 fL (79-100) Mean Corpuscular Hemoglobin 29 pg (25-35) Mean Corpuscular Hemoglobin Concent 34 g/dL (31-37) Red Cell Distribution Width 13.1 % (11.5-14.5) Platelet Count 293 x10^3/uL (140-400) Neutrophils (%) (Auto) 85 % (31-73) Lymphocytes (%) (Auto) 12 % (24-48) Monocytes (%) (Auto) 2 % (0-9) Eosinophils (%) (Auto) 0 % (0-3) Basophils (%) (Auto) 1 % (0-3) Neutrophils # (Auto) 11.1 x10^3/uL (1.8-7.7) Lymphocytes # (Auto) 1.6 x10^3/uL (1.0-4.8) Monocytes # (Auto) 0.3 x10^3/uL (0.0-1.1) Eosinophils # (Auto) 0.0 x10^3/uL (0.0-0.7) Basophils # (Auto) 0.1 x10^3/uL (0.0-0.2) Sodium Level 139 mmol/L (136-145) Potassium Level 4.0 mmol/L (3.5-5.1) Chloride Level 107 mmol/L (98-107) Carbon Dioxide Level 20 mmol/L (21-32) Anion Gap 12 (6-14) Blood Urea Nitrogen 18 mg/dL (7-20) Creatinine 0.8 mg/dL (0.6-1.0) Estimated GFR (Cockcroft-Gault) 92.2 BUN/Creatinine Ratio 23 (6-20) Glucose Level 168 mg/dL (70-99) Calcium Level 8.4 mg/dL (8.5-10.1) Total Bilirubin 0.2 mg/dL (0.2-1.0) Aspartate Amino Transf (AST/SGOT) 87 U/L (15-37) Alanine Aminotransferase (ALT/SGPT) 119 U/L (14-59) Alkaline Phosphatase 47 U/L (46-116) Total Protein 6.6 g/dL (6.4-8.2) Albumin 3.1 g/dL (3.4-5.0) Albumin/Globulin Ratio 0.9 (1.0-1.7) O2 Saturation 98 % (92-99) Arterial Blood pH 7.40 (7.35-7.45) Arterial Blood pCO2 at Patient Temp 30 mmHg (35-46) Arterial Blood pO2 at Patient Temp 118 mmHg (75-108) Arterial Blood HCO3 18 mmol/L (21-28) Arterial Blood Base Excess -5 mmol/L (-3-3) FiO2 40% Laboratory Tests Test 10/20/19 12:50 10/20/19 17:01 10/21/19 00:56 10/21/19 04:10 Glucose (Fingerstick) 133 mg/dL (70-99) 157 mg/dL (70-99) 148 mg/dL (70-99) White Blood Count 13.1 x10^3/uL (4.0-11.0) Red Blood Count 3.87 x10^6/uL (3.50-5.40) Hemoglobin 11.0 g/dL (12.0-15.5) Hematocrit 32.9 % (36.0-47.0) Mean Corpuscular Volume 85 fL (79-100) Mean Corpuscular Hemoglobin 29 pg (25-35) Mean Corpuscular Hemoglobin Concent 34 g/dL (31-37) Red Cell Distribution Width 13.1 % (11.5-14.5) Platelet Count 293 x10^3/uL (140-400) Neutrophils (%) (Auto) 85 % (31-73) Lymphocytes (%) (Auto) 12 % (24-48) Monocytes (%) (Auto) 2 % (0-9) Eosinophils (%) (Auto) 0 % (0-3) Basophils (%) (Auto) 1 % (0-3) Neutrophils # (Auto) 11.1 x10^3/uL (1.8-7.7) Lymphocytes # (Auto) 1.6 x10^3/uL (1.0-4.8) Monocytes # (Auto) 0.3 x10^3/uL (0.0-1.1) Eosinophils # (Auto) 0.0 x10^3/uL (0.0-0.7) Basophils # (Auto) 0.1 x10^3/uL (0.0-0.2) Sodium Level 139 mmol/L (136-145) Potassium Level 4.0 mmol/L (3.5-5.1) Chloride Level 107 mmol/L (98-107) Carbon Dioxide Level 20 mmol/L (21-32) Anion Gap 12 (6-14) Blood Urea Nitrogen 18 mg/dL (7-20) Creatinine 0.8 mg/dL (0.6-1.0) Estimated GFR (Cockcroft-Gault) 92.2 BUN/Creatinine Ratio 23 (6-20) Glucose Level 168 mg/dL (70-99) Calcium Level 8.4 mg/dL (8.5-10.1) Total Bilirubin 0.2 mg/dL (0.2-1.0) Aspartate Amino Transf (AST/SGOT) 87 U/L (15-37) Alanine Aminotransferase (ALT/SGPT) 119 U/L (14-59) Alkaline Phosphatase 47 U/L (46-116) Total Protein 6.6 g/dL (6.4-8.2) Albumin 3.1 g/dL (3.4-5.0) Albumin/Globulin Ratio 0.9 (1.0-1.7) Test 10/21/19 08:35 O2 Saturation 98 % (92-99) Arterial Blood pH 7.40 (7.35-7.45) Arterial Blood pCO2 at Patient Temp 30 mmHg (35-46) Arterial Blood pO2 at Patient Temp 118 mmHg (75-108) Arterial Blood HCO3 18 mmol/L (21-28) Arterial Blood Base Excess -5 mmol/L (-3-3) FiO2 40% Medications Active Scripts Medications Dose Route/Sig Max Daily Dose Days Date Category Dose Instructions Naproxen 500 Mg Tablet 1 Tab PO BID 10 10/18/17 Rx Meloxicam 7.5 Mg Tablet 7.5 Mg PO DAILY 01/14/16 Reported Colace (Docusate Sodium) 100 Mg Capsule 100 Mg PO BID 06/30/15 Rx Oxycodone-Acetaminophen 10-325 (Oxycodone Hcl/Acetaminophen) 1 Each Tablet 1 Tab PO PRN Q4HRS PRN 06/30/15 Rx Osphena (Ospemifene) 60 Mg Tablet 60 Mg PO DAILY 06/22/15 Reported Soren-Mag Tablet Chewable (Calcium Carb/Magnesium Cmb #10) 1 Each Tab.chew 1 Each PO 12/24/14 Reported Nasacort (Triamcinolone Acetonide) 10.8 Ml [place] Unknown Dose NS DAILY 12/24/14 Reported [Oxycodone Hcl/Acetaminophen] 1 TAB Tablet 2 Tab PO PRN Q4HRS PRN 11/28/14 Rx [Oxycodone Hcl/Acetaminophen] 1 TAB Tablet 1 Tab PO PRN Q4HRS PRN 11/28/14 Rx Colace (Docusate Sodium) 100 Mg Capsule 100 Mg PO BID 11/28/14 Rx Cyclobenzaprine Hcl 10 Mg Tablet 10 Mg PO PRN TID PRN 11/19/14 Reported LAST DOSE GIVEN: DATE:11-28-14 TIME:0300 NEXT DOSE DUE: DATE:11-28-14 TIME:9:00 p.m. Stool Softener Tablet (Sennosides/Docusate Sodium) 1 Each Tablet 1 Each PO DAILY 11/19/14 Reported LAST DOSE GIVEN: DATE:11-28-14 TIME:9:00 a.m. NEXT DOSE DUE: DATE:11-29-14 TIME:9:00 a.m. Lisinopril 10 Mg Tablet 10 Mg PO DAILY 11/19/14 Reported LAST DOSE GIVEN: DATE:11-28-14 TIME:9:00 a.m. NEXT DOSE DUE: DATE:11-29-14 TIME:9:00 a.m. Comments cxr 10/20 reviewed, r hilar prominance, ett ok no infiltrate Impression . IMPRESSION: 1. Acute respiratory failure secondary to angioedema. 2. Angioedema secondary to ARYA inhibitor. 3. Abnormal chest x-ray with right hilar prominence 4. Hypertension. 5. electrolyte imbalance, hypo k Plan . PLAN AND RECOMMENDATIONS: 1. AC mode.Tongue swelling is improving. No air leak with cuff deflation .Titrate FiO2 to keep O2 saturation more than 94%. 2. Continue ventilator support. Ventilator setting was reviewed. Change vent setting per ABG. 3. repeat chest x-ray still shows r hilar prominance, she will need a CT of the chest once extubated 4. Continue steroid. 5. Pepcid for stress ulcer prophylaxis./benadryl 6. Lovenox for DVT prophylaxis. 7. Continue ventilator support until the patient has positive air leak with cuff deflation. 8. replace k The findings and recommendations were discussed with RN and RT critically ill, cc time 30 min no overlap CHRISTELLE ROBISON MD Oct 21, 2019 09:24
--- NOTE | 2019-10-21 10:04 | PDOC ---
PROGRESS NOTES Subjective Subjective sedated on vent Objective Objective Vital Signs Date Time Temp Pulse Resp B/P (MAP) Pulse Ox O2 Delivery O2 Flow Rate FiO2 10/21/19 09:00 46 16 127/72 (90) 100 Ventilator 10/21/19 08:00 98.1 98.1 Intake and Output 10/21/19 07:00 Intake Total 1891 ml Output Total 1295 ml Balance 596 ml Intake IV Total 1414 ml Tube Feeding 217 ml Other 260 ml Output Urine Total 1095 ml Gastric Drainage Total 200 ml Physical Exam Physical Exam on vent ,orally intubated, sedated Abdomen: Normal bowel sounds Heart: Regular rate, Normal S1 Extremities: No clubbing General: Other (sedated) HEENT: Atraumatic Lungs: Clear to auscultation MUSCULOSKELETAL: No swelling, Other Skin: No breakdown Diagnosis Problem List Problems Medical Problems: (1) ARYA inhibitor-aggravated angioedema Status: Acute (2) Airway compromise Status: Acute (3) Angio-edema Status: Acute Assessment Assessment 1. Acute respiratory failure due to acute angioedema likely due to lisinopril. 2. Acute gout, left ankle 3. Hypertension. 4. Acute angioedema. PLAN: The patient is intubated and sedated in the Intensive Care Unit, started on IV Solu-Medrol, IV Pepcid and IV Benadryl as needed. Spoke with pulmonary continue vent management Acute respiratory failure due to angioedema-tongue is still swollen. Continue mechanical ventilation. Gout of left ankle and foot -office records reviewed. Hypokalemia-replaced potassium, corected Hyperglycemia-monitor with low-dose sliding scale insulin. IV fluids .labs reviewed dvt prevetuion gi prevention Plan Plan of Care Problems Medical Problems: (1) ARYA inhibitor-aggravated angioedema Status: Acute (2) Airway compromise Status: Acute (3) Angio-edema Status: Acute Comment Review of Relevant I have reviewed the following items sinan (where applicable) has been applied. Labs Laboratory Tests Test 10/20/19 12:50 10/20/19 17:01 10/21/19 00:56 10/21/19 04:10 Glucose (Fingerstick) 133 mg/dL (70-99) 157 mg/dL (70-99) 148 mg/dL (70-99) White Blood Count 13.1 x10^3/uL (4.0-11.0) Red Blood Count 3.87 x10^6/uL (3.50-5.40) Hemoglobin 11.0 g/dL (12.0-15.5) Hematocrit 32.9 % (36.0-47.0) Mean Corpuscular Volume 85 fL (79-100) Mean Corpuscular Hemoglobin 29 pg (25-35) Mean Corpuscular Hemoglobin Concent 34 g/dL (31-37) Red Cell Distribution Width 13.1 % (11.5-14.5) Platelet Count 293 x10^3/uL (140-400) Neutrophils (%) (Auto) 85 % (31-73) Lymphocytes (%) (Auto) 12 % (24-48) Monocytes (%) (Auto) 2 % (0-9) Eosinophils (%) (Auto) 0 % (0-3) Basophils (%) (Auto) 1 % (0-3) Neutrophils # (Auto) 11.1 x10^3/uL (1.8-7.7) Lymphocytes # (Auto) 1.6 x10^3/uL (1.0-4.8) Monocytes # (Auto) 0.3 x10^3/uL (0.0-1.1) Eosinophils # (Auto) 0.0 x10^3/uL (0.0-0.7) Basophils # (Auto) 0.1 x10^3/uL (0.0-0.2) Sodium Level 139 mmol/L (136-145) Potassium Level 4.0 mmol/L (3.5-5.1) Chloride Level 107 mmol/L (98-107) Carbon Dioxide Level 20 mmol/L (21-32) Anion Gap 12 (6-14) Blood Urea Nitrogen 18 mg/dL (7-20) Creatinine 0.8 mg/dL (0.6-1.0) Estimated GFR (Cockcroft-Gault) 92.2 BUN/Creatinine Ratio 23 (6-20) Glucose Level 168 mg/dL (70-99) Calcium Level 8.4 mg/dL (8.5-10.1) Total Bilirubin 0.2 mg/dL (0.2-1.0) Aspartate Amino Transf (AST/SGOT) 87 U/L (15-37) Alanine Aminotransferase (ALT/SGPT) 119 U/L (14-59) Alkaline Phosphatase 47 U/L (46-116) Total Protein 6.6 g/dL (6.4-8.2) Albumin 3.1 g/dL (3.4-5.0) Albumin/Globulin Ratio 0.9 (1.0-1.7) Test 10/21/19 08:35 O2 Saturation 98 % (92-99) Arterial Blood pH 7.40 (7.35-7.45) Arterial Blood pCO2 at Patient Temp 30 mmHg (35-46) Arterial Blood pO2 at Patient Temp 118 mmHg (75-108) Arterial Blood HCO3 18 mmol/L (21-28) Arterial Blood Base Excess -5 mmol/L (-3-3) FiO2 40% Medications Current Medications Insulin Human Lispro (HumaLOG) 0-8 UNITS TIDAC SQ ; Start 10/20/19 at 11:30 Potassium Chloride/Sodium Chloride 1,000 ml @ 75 mls/hr [id number] IV Last administered on 10/20/19at 23:47; Start 10/20/19 at 10:15 Potassium Chloride/Water 100 ml @ 100 mls/hr Q1H IV Last administered on 10/20/19at 12:46; Start 10/20/19 at 10:30; Stop 10/20/19 at 12:29; Status DC Potassium Chloride (Klor-Con) 20 meq 1X ONCE PO Last administered on 10/20/19at 12:47; Start 10/20/19 at 10:45; Stop 10/20/19 at 10:48; Status DC Vitals/I & O Vital Sign - Last 24 Hours 10/20/19 10/20/19 10/20/19 10/20/19 11:00 11:32 12:00 12:00 Temp 97.9 97.9 Pulse 54 54 Resp 16 16 B/P (MAP) 93/61 (72) 98/64 (75) Pulse Ox 40 100 40 O2 Delivery Ventilator Ventilator Mechanical Ventilator Ventilator 10/20/19 10/20/19 10/20/19 10/20/19 13:00 14:00 15:00 15:52 Pulse 54 52 52 Resp 16 16 16 B/P (MAP) 107/71 (83) 111/71 (84) 103/67 (79) Pulse Ox 40 40 40 100 O2 Delivery Ventilator Ventilator Ventilator Ventilator 10/20/19 10/20/19 10/20/1910/19/20 16:00 16:00 17:00 18:00 Temp 97.4 97.4 Pulse 51 52 50 Resp 16 16 16 B/P (MAP) 110/72 (85) 108/72 (84) 113/73 (86) Pulse Ox 40 40 40 O2 Delivery Mechanical Ventilator Ventilator Ventilator Ventilator 10/20/19 10/20/19 10/20/19 10/20/19 19:00 20:00 20:00 20:30 Temp 97.9 97.9 Pulse 64 68 Resp 16 16 16 B/P (MAP) 108/63 (78) 118/74 (89) Pulse Ox 40 40 40 O2 Delivery Ventilator Ventilator Mechanical Ventilator 10/20/19 10/20/19 10/20/19 10/20/19 20:35 21:00 21:00 22:00 Pulse 56 50 Resp 16 16 16 B/P (MAP) 118/68 (85) 108/65 (79) Pulse Ox 100 40 40 40 O2 Delivery Ventilator Ventilator Ventilator Ventilator 10/20/19 10/20/19 10/20/19 10/21/19 23:00 23:45 23:59 00:00 Temp 97.0 97.0 Pulse 47 47 Resp 16 16 B/P (MAP) 111/70 (84) 117/74 (88) Pulse Ox 40 100 40 O2 Delivery Ventilator Ventilator Mechanical Ventilator Ventilator 10/21/19 10/21/19 10/21/19 10/21/19 01:00 02:00 03:00 03:24 Pulse 49 46 46 Resp 16 16 16 B/P (MAP) 119/72 (88) 116/75 (89) 119/76 (90) Pulse Ox 40 40 40 100 O2 Delivery Ventilator Ventilator Ventilator Ventilator 10/21/19 10/21/19 10/21/19 10/21/19 04:00 04:00 05:00 05:48 Temp 97.2 97.2 Pulse 83 62 Resp 16 16 16 B/P (MAP) 113/75 (88) 118/66 (83) Pulse Ox 40 40 40 O2 Delivery Ventilator Mechanical Ventilator Ventilator 10/21/19 10/21/19 10/21/19 10/21/19 06:00 06:18 07:00 08:00 Pulse 48 45 Resp 16 16 16 B/P (MAP) 119/69 (86) 115/69 (84) Pulse Ox 40 100 100 O2 Delivery Ventilator Ventilator Ventilator Mechanical Ventilator 10/21/19 10/21/19 10/21/19 08:00 08:31 09:00 Temp 98.1 98.1 Pulse 42 46 Resp 16 16 B/P (MAP) 120/74 (89) 127/72 (90) Pulse Ox 100 100 100 O2 Delivery Ventilator Ventilator Ventilator Intake and Output 10/20/19 10/20/19 10/21/19 15:00 23:00 07:00 Intake Total 805 ml 669 ml 417 ml Output Total 305 ml 680 ml 310 ml Balance 500 ml -11 ml 107 ml Justicifation of Admission Dx: Justifications for Admission: Justification of Admission Dx: Yes Respiratory Failure: Airway Obstruction CIRA MARCH MD Oct 21, 2019 10:04
--- NOTE | 2019-10-21 12:15 | NUR ---
SS following for discharge planning. SS reviewed pt chart and discussed with pt RN. Pt is from home and is currently on the vent. SS will continue to follow for discharge planning.
--- NOTE | 2019-10-21 12:45 | NUR ---
Removed air from ETT cuff with Dr. Jones to check for swelling, patient's airway is still extremely swollen, will wait until tomorrow to check again.
[2019-10-21] MEDS: diphenhydrAMINE 50 MG/ML VIAL IVP PRN (19:44)
[2019-10-22] VITALS (24 sets, daily range): BP systolic 105–145; BP diastolic 57–88
[2019-10-22] MEDS: PROPOFOL 100 ML IV PRN ×6 (02:18→23:26)
[2019-10-22] MEDS: diphenhydrAMINE 50 MG/ML VIAL IVP PRN ×2 (04:00→20:16)
[2019-10-22 04:14] LABS: BASO % 0 % (0-3); EOS % 0 % (0-3); HEMATOCRIT 33.5 % (36.0-47.0); HEMOGLOBIN 10.9 g/dL (12.0-15.5); LYMPH # 1.9 x10^3/uL (1.0-4.8); LYMPH % 14 % (24-48); MEAN CORPUSCULAR HEMOGLOBIN 28 pg (25-35); MEAN CORPUSCULAR HGB CONC 33 g/dL (31-37); MEAN CORPUSCULAR VOLUME 86 fL (79-100); MONO # 0.6 x10^3/uL (0.0-1.1); MONO % 4 % (0-9); NEUT # 11.1 x10^3/uL (1.8-7.7); NEUT % 81 % (31-73); PLATELET COUNT 291 x10^3/uL (140-400); RED BLOOD COUNT 3.91 x10^6/uL (3.50-5.40); RED CELL DISTRIBUTION WIDTH 12.8 % (11.5-14.5); WHITE BLOOD COUNT 13.6 x10^3/uL (4.0-11.0)
[2019-10-22 05:09] LABS: CALCIUM 8.2 mg/dL (8.5-10.1); CREATININE 0.9 mg/dL (0.6-1.0); GFR 80.5
[2019-10-22] MEDS: methylPREDNISolone SOD SUCC PF 40 MG/ML VIAL. IV SCH ×3 (05:45→22:34)
[2019-10-22] MEDS: INSULIN LISPRO 300 UNITS/3 ML VIAL. SQ SCH ×3 (05:52→17:22)
--- NOTE | 2019-10-22 07:54 | PDOC ---
PROGRESS NOTES Objective Objective Vital Signs Date Time Temp Pulse Resp B/P (MAP) Pulse Ox O2 Delivery O2 Flow Rate FiO2 10/22/19 07:34 99 Ventilator 10/22/19 06:00 52 16 124/76 (92) 10/22/19 04:00 97.2 97.2 Intake and Output 10/22/19 07:00 Intake Total 5063.4 ml Output Total 2030 ml Balance 3033.4 ml Intake IV Total 3004.4 ml Tube Feeding 1359 ml Other 700 ml Output Urine Total 2030 ml Physical Exam Physical Exam on vent ,orally intubated, sedated Abdomen: Normal bowel sounds Heart: Regular rate, Normal S1 Extremities: No clubbing General: Other (sedated) HEENT: Atraumatic Lungs: Clear to auscultation MUSCULOSKELETAL: No swelling, Other Skin: No breakdown Diagnosis Problem List Problems Medical Problems: (1) ARYA inhibitor-aggravated angioedema Status: Acute (2) Airway compromise Status: Acute (3) Angio-edema Status: Acute Assessment Assessment 1. Acute respiratory failure due to acute angioedema likely due to lisinopril. 2. Acute gout, left ankle 3. Hypertension. 4. Acute angioedema. PLAN: The patient is intubated and sedated in the Intensive Care Unit, started on IV Solu-Medrol, IV Pepcid and IV Benadryl as needed. Spoke with pulmonary continue vent management Acute respiratory failure due to angioedema-tongue is still swollen. Continue mechanical ventilation. Gout of left ankle and foot -office records reviewed. Hypokalemia-replaced potassium, corected Hyperglycemia-monitor with low-dose sliding scale insulin. IV fluids .labs reviewed dvt prevetuion gi prevention Plan Plan of Care Problems Medical Problems: (1) ARYA inhibitor-aggravated angioedema Status: Acute (2) Airway compromise Status: Acute (3) Angio-edema Status: Acute Comment Review of Relevant I have reviewed the following items sinan (where applicable) has been applied. Labs Laboratory Tests Test 10/21/19 08:35 10/21/19 17:31 10/21/19 23:15 10/22/19 03:15 O2 Saturation 98 % (92-99) Arterial Blood pH 7.40 (7.35-7.45) Arterial Blood pCO2 at Patient Temp 30 mmHg (35-46) Arterial Blood pO2 at Patient Temp 118 mmHg (75-108) Arterial Blood HCO3 18 mmol/L (21-28) Arterial Blood Base Excess -5 mmol/L (-3-3) FiO2 40% Glucose (Fingerstick) 156 mg/dL (70-99) 166 mg/dL (70-99) White Blood Count 13.6 x10^3/uL (4.0-11.0) Red Blood Count 3.91 x10^6/uL (3.50-5.40) Hemoglobin 10.9 g/dL (12.0-15.5) Hematocrit 33.5 % (36.0-47.0) Mean Corpuscular Volume 86 fL (79-100) Mean Corpuscular Hemoglobin 28 pg (25-35) Mean Corpuscular Hemoglobin Concent 33 g/dL (31-37) Red Cell Distribution Width 12.8 % (11.5-14.5) Platelet Count 291 x10^3/uL (140-400) Neutrophils (%) (Auto) 81 % (31-73) Lymphocytes (%) (Auto) 14 % (24-48) Monocytes (%) (Auto) 4 % (0-9) Eosinophils (%) (Auto) 0 % (0-3) Basophils (%) (Auto) 0 % (0-3) Neutrophils # (Auto) 11.1 x10^3/uL (1.8-7.7) Lymphocytes # (Auto) 1.9 x10^3/uL (1.0-4.8) Monocytes # (Auto) 0.6 x10^3/uL (0.0-1.1) Eosinophils # (Auto) 0.0 x10^3/uL (0.0-0.7) Basophils # (Auto) 0.0 x10^3/uL (0.0-0.2) Sodium Level 139 mmol/L (136-145) Potassium Level 4.0 mmol/L (3.5-5.1) Chloride Level 108 mmol/L (98-107) Carbon Dioxide Level 18 mmol/L (21-32) Anion Gap 13 (6-14) Blood Urea Nitrogen 19 mg/dL (7-20) Creatinine 0.9 mg/dL (0.6-1.0) Estimated GFR (Cockcroft-Gault) 80.5 Glucose Level 159 mg/dL (70-99) Calcium Level 8.2 mg/dL (8.5-10.1) Test 10/22/19 05:51 Glucose (Fingerstick) 141 mg/dL (70-99) Medications Current Medications Insulin Human Lispro (HumaLOG) 0-8 UNITS Q6HRS SQ Last administered on 09/30 06/20at 23:32; Start 10/21/19 at 12:00 Vitals/I & O Vital Sign - Last 24 Hours 10/21/19 10/21/19 10/21/19 10/21/19 08:00 08:00 08:31 09:00 Temp 98.1 98.1 Pulse 42 46 Resp 16 16 B/P (MAP) 120/74 (89) 127/72 (90) Pulse Ox 100 100 100 O2 Delivery Mechanical Ventilator Ventilator Ventilator Ventilator 10/21/19 10/21/19 10/21/19 10/21/19 10:00 11:00 11:24 12:00 Temp 98.3 98.3 Pulse 48 46 54 Resp 16 16 16 B/P (MAP) 115/70 (85) 114/68 (83) 113/69 (84) Pulse Ox 100 100 100 100 O2 Delivery Ventilator Ventilator Ventilator Ventilator 10/21/19 10/21/19 10/21/19 10/21/19 12:00 12:47 13:00 14:00 Pulse 47 50 Resp 16 16 B/P (MAP) 112/65 (81) 106/59 (75) Pulse Ox 100 100 100 O2 Delivery Mechanical Ventilator Ventilator Ventilator Ventilator 10/21/19 10/21/19 10/21/19 10/21/19 15:00 15:44 15:59 16:00 Temp 98.4 98.4 Pulse 49 45 Resp 16 16 B/P (MAP) 105/61 (76) 124/78 (93) Pulse Ox 99 99 99 O2 Delivery Ventilator Mechanical Ventilator Ventilator Ventilator 10/21/19 10/21/19 10/21/19 10/21/19 17:00 18:00 19:00 19:35 Pulse 48 50 53 Resp 16 16 16 B/P (MAP) 121/79 (93) 127/74 (91) 107/68 (81) Pulse Ox 99 99 100 99 O2 Delivery Ventilator Ventilator Ventilator Ventilator 10/21/19 10/21/19 10/21/19 10/21/19 20:00 20:00 21:00 22:00 Temp 98.0 98.0 Pulse 69 67 47 Resp 16 16 16 B/P (MAP) 135/77 (96) 149/88 (108) 126/78 (94) Pulse Ox 100 100 100 O2 Delivery Mechanical Ventilator Ventilator Ventilator Ventilator 10/21/19 10/21/19 10/21/19 10/22/19 23:00 23:39 23:59 00:00 Temp 97.9 97.9 Pulse 48 48 Resp 16 16 B/P (MAP) 131/81 (98) 132/79 (96) Pulse Ox 100 99 100 O2 Delivery Ventilator Ventilator Mechanical Ventilator Ventilator 10/22/19 10/22/19 10/22/19 10/22/19 01:00 02:00 03:00 03:15 Pulse 49 48 49 Resp 16 16 16 B/P (MAP) 139/80 (99) 128/76 (93) 133/79 (97) Pulse Ox 100 100 100 99 O2 Delivery Ventilator Ventilator Ventilator Ventilator 10/22/19 10/22/19 10/22/19 10/22/19 03:51 04:00 04:00 04:21 Temp 97.2 97.2 Pulse 54 Resp 49 16 24 B/P (MAP) 141/88 (105) Pulse Ox 99 100 100 O2 Delivery Ventilator Mechanical Ventilator Ventilator 10/22/19 10/22/19 10/22/19 05:00 06:00 07:34 Pulse 51 52 Resp 16 16 B/P (MAP) 120/74 (89) 124/76 (92) Pulse Ox 100 100 99 O2 Delivery Ventilator Ventilator Ventilator Intake and Output 10/21/19 10/21/19 10/22/19 15:00 23:00 07:00 Intake Total 100 ml 2573 ml 2390.4 ml Output Total 515 ml 925 ml 590 ml Balance -415 ml 1648 ml 1800.4 ml Justicifation of Admission Dx: Justifications for Admission: Justification of Admission Dx: Yes Respiratory Failure: Airway Obstruction CIRA MARCH MD Oct 22, 2019 07:54
[2019-10-22 08:43] LABS: BASE EXCESS ABG -8 mmol/L (-3-3); HCO3 ABG 17 mmol/L (21-28); PCO2 ABG 33 mmHg (35-46); PO2 ABG 70 mmHg (75-108); SAT O2 ABG 93 % (92-99)
[2019-10-22] MEDS: DOCUSATE SODIUM 100 MG CAPSULE. PO SCH ×2 (09:00→20:26)
--- NOTE | 2019-10-22 09:13 | PDOC ---
PULMONARY PROGRESS NOTES Subjective on vent, sedated, propofol, fentanyl, small ett secretion tongue with less swelling moderate ET secretions Vitals Vital Signs Date Time Temp Pulse Resp B/P (MAP) Pulse Ox O2 Delivery O2 Flow Rate FiO2 10/22/19 07:34 99 Ventilator 10/22/19 06:00 52 16 124/76 (92) 10/22/19 04:00 97.2 97.2 Comments unable to obtain on vent sedated HEENT: Other (nc at perrl orally intubated tongue edema nose clear neck no lad no thyromegaly) Lungs: Clear Cardiovascular: S1, S2 Abdomen: Soft, Non-tender, Other (no mass) Extremities: No Edema Skin: Warm Labs Laboratory Tests Test 10/20/19 12:50 10/20/19 17:01 10/21/19 00:56 10/21/19 04:10 Glucose (Fingerstick) 133 mg/dL (70-99) 157 mg/dL (70-99) 148 mg/dL (70-99) White Blood Count 13.1 x10^3/uL (4.0-11.0) Red Blood Count 3.87 x10^6/uL (3.50-5.40) Hemoglobin 11.0 g/dL (12.0-15.5) Hematocrit 32.9 % (36.0-47.0) Mean Corpuscular Volume 85 fL (79-100) Mean Corpuscular Hemoglobin 29 pg (25-35) Mean Corpuscular Hemoglobin Concent 34 g/dL (31-37) Red Cell Distribution Width 13.1 % (11.5-14.5) Platelet Count 293 x10^3/uL (140-400) Neutrophils (%) (Auto) 85 % (31-73) Lymphocytes (%) (Auto) 12 % (24-48) Monocytes (%) (Auto) 2 % (0-9) Eosinophils (%) (Auto) 0 % (0-3) Basophils (%) (Auto) 1 % (0-3) Neutrophils # (Auto) 11.1 x10^3/uL (1.8-7.7) Lymphocytes # (Auto) 1.6 x10^3/uL (1.0-4.8) Monocytes # (Auto) 0.3 x10^3/uL (0.0-1.1) Eosinophils # (Auto) 0.0 x10^3/uL (0.0-0.7) Basophils # (Auto) 0.1 x10^3/uL (0.0-0.2) Sodium Level 139 mmol/L (136-145) Potassium Level 4.0 mmol/L (3.5-5.1) Chloride Level 107 mmol/L (98-107) Carbon Dioxide Level 20 mmol/L (21-32) Anion Gap 12 (6-14) Blood Urea Nitrogen 18 mg/dL (7-20) Creatinine 0.8 mg/dL (0.6-1.0) Estimated GFR (Cockcroft-Gault) 92.2 BUN/Creatinine Ratio 23 (6-20) Glucose Level 168 mg/dL (70-99) Calcium Level 8.4 mg/dL (8.5-10.1) Total Bilirubin 0.2 mg/dL (0.2-1.0) Aspartate Amino Transf (AST/SGOT) 87 U/L (15-37) Alanine Aminotransferase (ALT/SGPT) 119 U/L (14-59) Alkaline Phosphatase 47 U/L (46-116) Total Protein 6.6 g/dL (6.4-8.2) Albumin 3.1 g/dL (3.4-5.0) Albumin/Globulin Ratio 0.9 (1.0-1.7) Test 10/21/19 08:35 10/21/19 17:31 10/21/19 23:15 10/22/19 03:15 O2 Saturation 98 % (92-99) Arterial Blood pH 7.40 (7.35-7.45) Arterial Blood pCO2 at Patient Temp 30 mmHg (35-46) Arterial Blood pO2 at Patient Temp 118 mmHg (75-108) Arterial Blood HCO3 18 mmol/L (21-28) Arterial Blood Base Excess -5 mmol/L (-3-3) FiO2 40% Glucose (Fingerstick) 156 mg/dL (70-99) 166 mg/dL (70-99) White Blood Count 13.6 x10^3/uL (4.0-11.0) Red Blood Count 3.91 x10^6/uL (3.50-5.40) Hemoglobin 10.9 g/dL (12.0-15.5) Hematocrit 33.5 % (36.0-47.0) Mean Corpuscular Volume 86 fL (79-100) Mean Corpuscular Hemoglobin 28 pg (25-35) Mean Corpuscular Hemoglobin Concent 33 g/dL (31-37) Red Cell Distribution Width 12.8 % (11.5-14.5) Platelet Count 291 x10^3/uL (140-400) Neutrophils (%) (Auto) 81 % (31-73) Lymphocytes (%) (Auto) 14 % (24-48) Monocytes (%) (Auto) 4 % (0-9) Eosinophils (%) (Auto) 0 % (0-3) Basophils (%) (Auto) 0 % (0-3) Neutrophils # (Auto) 11.1 x10^3/uL (1.8-7.7) Lymphocytes # (Auto) 1.9 x10^3/uL (1.0-4.8) Monocytes # (Auto) 0.6 x10^3/uL (0.0-1.1) Eosinophils # (Auto) 0.0 x10^3/uL (0.0-0.7) Basophils # (Auto) 0.0 x10^3/uL (0.0-0.2) Sodium Level 139 mmol/L (136-145) Potassium Level 4.0 mmol/L (3.5-5.1) Chloride Level 108 mmol/L (98-107) Carbon Dioxide Level 18 mmol/L (21-32) Anion Gap 13 (6-14) Blood Urea Nitrogen 19 mg/dL (7-20) Creatinine 0.9 mg/dL (0.6-1.0) Estimated GFR (Cockcroft-Gault) 80.5 Glucose Level 159 mg/dL (70-99) Calcium Level 8.2 mg/dL (8.5-10.1) Test 10/22/19 05:51 Glucose (Fingerstick) 141 mg/dL (70-99) Laboratory Tests Test 10/21/19 17:31 10/21/19 23:15 10/22/19 03:15 10/22/19 05:51 Glucose (Fingerstick) 156 mg/dL (70-99) 166 mg/dL (70-99) 141 mg/dL (70-99) White Blood Count 13.6 x10^3/uL (4.0-11.0) Red Blood Count 3.91 x10^6/uL (3.50-5.40) Hemoglobin 10.9 g/dL (12.0-15.5) Hematocrit 33.5 % (36.0-47.0) Mean Corpuscular Volume 86 fL (79-100) Mean Corpuscular Hemoglobin 28 pg (25-35) Mean Corpuscular Hemoglobin Concent 33 g/dL (31-37) Red Cell Distribution Width 12.8 % (11.5-14.5) Platelet Count 291 x10^3/uL (140-400) Neutrophils (%) (Auto) 81 % (31-73) Lymphocytes (%) (Auto) 14 % (24-48) Monocytes (%) (Auto) 4 % (0-9) Eosinophils (%) (Auto) 0 % (0-3) Basophils (%) (Auto) 0 % (0-3) Neutrophils # (Auto) 11.1 x10^3/uL (1.8-7.7) Lymphocytes # (Auto) 1.9 x10^3/uL (1.0-4.8) Monocytes # (Auto) 0.6 x10^3/uL (0.0-1.1) Eosinophils # (Auto) 0.0 x10^3/uL (0.0-0.7) Basophils # (Auto) 0.0 x10^3/uL (0.0-0.2) Sodium Level 139 mmol/L (136-145) Potassium Level 4.0 mmol/L (3.5-5.1) Chloride Level 108 mmol/L (98-107) Carbon Dioxide Level 18 mmol/L (21-32) Anion Gap 13 (6-14) Blood Urea Nitrogen 19 mg/dL (7-20) Creatinine 0.9 mg/dL (0.6-1.0) Estimated GFR (Cockcroft-Gault) 80.5 Glucose Level 159 mg/dL (70-99) Calcium Level 8.2 mg/dL (8.5-10.1) Medications Active Scripts Medications Dose Route/Sig Max Daily Dose Days Date Category Dose Instructions Naproxen 500 Mg Tablet 1 Tab PO BID 10/18/17 Rx Meloxicam 7.5 Mg Tablet 7.5 Mg PO DAILY 01/14/16 Reported Colace (Docusate Sodium) 100 Mg Capsule 100 Mg PO BID 06/30/15 Rx Oxycodone-Acetaminophen 10-325 (Oxycodone Hcl/Acetaminophen) 1 Each Tablet 1 Tab PO PRN Q4HRS PRN 06/30/15 Rx Osphena (Ospemifene) 60 Mg Tablet 60 Mg PO DAILY 06/22/15 Reported Soren-Mag Tablet Chewable (Calcium Carb/Magnesium Cmb #10) 1 Each Tab.chew 1 Each PO 12/24/14 Reported Nasacort (Triamcinolone Acetonide) 10.8 Ml [place] Unknown Dose NS DAILY 12/24/14 Reported [Oxycodone Hcl/Acetaminophen] 1 TAB Tablet 2 Tab PO PRN Q4HRS PRN 11/28/14 Rx [Oxycodone Hcl/Acetaminophen] 1 TAB Tablet 1 Tab PO PRN Q4HRS PRN 11/28/14 Rx Colace (Docusate Sodium) 100 Mg Capsule 100 Mg PO BID 11/28/14 Rx Cyclobenzaprine Hcl 10 Mg Tablet 10 Mg PO PRN TID PRN 11/19/14 Reported LAST DOSE GIVEN: DATE:11-28-14 TIME:0300 NEXT DOSE DUE: DATE:11-28-14 TIME:9:00 p.m. Stool Softener Tablet (Sennosides/Docusate Sodium) 1 Each Tablet 1 Each PO DAILY 11/19/14 Reported LAST DOSE GIVEN: DATE:11-28-14 TIME:9:00 a.m. NEXT DOSE DUE: DATE:11-29-14 TIME:9:00 a.m. Lisinopril 10 Mg Tablet 10 Mg PO DAILY 11/19/14 Reported LAST DOSE GIVEN: DATE:11-28-14 TIME:9:00 a.m. NEXT DOSE DUE: DATE:11-29-14 TIME:9:00 a.m. Comments cxr 10/20 reviewed, r hilar prominance, ett ok no infiltrate Impression . IMPRESSION: 1. Acute respiratory failure secondary to angioedema. 2. Angioedema secondary to ARYA inhibitor. 3. Abnormal chest x-ray with right hilar prominence, will need ct chest post ex tubation 4. Hypertension. 5. electrolyte imbalance, hypo k Plan . PLAN AND RECOMMENDATIONS: 1. AC mode.Tongue swelling is improving. Positive air leak with cuff deflation today but moderate ET secretions .will add Abx and once secretions better, CPAP trial in am 2. Continue ventilator support. Ventilator setting was reviewed. Change vent setting per ABG. Titrate FiO2 to keep O2 saturation more than 94%. 3. repeat chest x-ray still shows r hilar prominance, she will need a CT of the chest once extubated 4. Continue steroid. 5. Pepcid for stress ulcer prophylaxis./benadryl 6. Lovenox for DVT prophylaxis. 7. Continue ventilator support until the patient has positive air leak with cuff deflation. 8. replace k prn The findings and recommendations were discussed with RN and RT critically ill, cc time 30 min no overlap CHRISTELLE ROBISON MD Oct 22, 2019 09:13
[2019-10-22] MEDS ORDERED: levOFLOXacin PER PHARMACY. MC PRN (09:15)
[2019-10-22] MEDS: CHLORHEXIDINE 0.12% 15 ML MOUTHWASH. MM SCH ×2 (09:22→20:26)
[2019-10-22] MEDS: FAMOTIDINE 20 MG/2 ML VIAL IVP SCH ×2 (09:22→20:25)
[2019-10-22] MEDS: ENOXAPARIN 40 MG/0.4 ML SYRINGE. SQ SCH (09:23)
[2019-10-22 09:24] LABS: FIO2 ABG 40% VENT
--- NOTE | 2019-10-22 12:29 | NUR ---
SS following up with discharge planning. SS reviewed pt chart and discussed with pt RN. Pt remains on the vent at this time. Possible extubation tomorrow. SS will continue to follow for discharge planning.
--- NOTE | 2019-10-22 15:22 | PDOC ---
PROGRESS NOTES Subjective Subjective SEDATED ON VENT Objective Objective Vital Signs Date Time Temp Pulse Resp B/P (MAP) Pulse Ox O2 Delivery O2 Flow Rate FiO2 10/22/19 13:00 69 16 133/68 (89) 98 Ventilator 10/22/19 12:00 97.8 97.8 Intake and Output 10/22/19 07:00 Intake Total 5063.4 ml Output Total 2130 ml Balance 2933.4 ml Intake IV Total 3004.4 ml Tube Feeding 1359 ml Other 700 ml Output Urine Total 2130 ml Physical Exam Physical Exam on vent ,orally intubated, sedated Abdomen: Normal bowel sounds Heart: Regular rate, Normal S1 Extremities: No clubbing General: Other (sedated) HEENT: Atraumatic Lungs: Clear to auscultation MUSCULOSKELETAL: No swelling, Other Skin: No breakdown Diagnosis Problem List Problems Medical Problems: (1) ARYA inhibitor-aggravated angioedema Status: Acute (2) Airway compromise Status: Acute (3) Angio-edema Status: Acute Assessment Assessment 1. Acute respiratory failure due to acute angioedema likely due to lisinopril. 2. Acute gout, left ankle 3. Hypertension. 4. Acute angioedema. PLAN: SPOKE WITH PULMONARY. VENT WEANING TOMORROW SPOKE WITH PTS MOTHER. LABS NOTED. IV STEROIDS The patient is intubated and sedated in the Intensive Care Unit, started on IV Solu-Medrol, IV Pepcid and IV Benadryl as needed. Spoke with pulmonary continue vent management Acute respiratory failure due to angioedema-tongue is still swollen. Continue mechanical ventilation. Gout of left ankle and foot -office records reviewed. Hypokalemia-replaced potassium, corected Hyperglycemia-monitor with low-dose sliding scale insulin. IV fluids .labs reviewed dvt prevetuion gi prevention Plan Plan of Care Problems Medical Problems: (1) ARYA inhibitor-aggravated angioedema Status: Acute (2) Airway compromise Status: Acute (3) Angio-edema Status: Acute Comment Review of Relevant I have reviewed the following items sinan (where applicable) has been applied. Labs Laboratory Tests Test 10/21/19 17:31 10/21/19 23:15 10/22/19 03:15 10/22/19 05:51 Glucose (Fingerstick) 156 mg/dL (70-99) 166 mg/dL (70-99) 141 mg/dL (70-99) White Blood Count 13.6 x10^3/uL (4.0-11.0) Red Blood Count 3.91 x10^6/uL (3.50-5.40) Hemoglobin 10.9 g/dL (12.0-15.5) Hematocrit 33.5 % (36.0-47.0) Mean Corpuscular Volume 86 fL (79-100) Mean Corpuscular Hemoglobin 28 pg (25-35) Mean Corpuscular Hemoglobin Concent 33 g/dL (31-37) Red Cell Distribution Width 12.8 % (11.5-14.5) Platelet Count 291 x10^3/uL (140-400) Neutrophils (%) (Auto) 81 % (31-73) Lymphocytes (%) (Auto) 14 % (24-48) Monocytes (%) (Auto) 4 % (0-9) Eosinophils (%) (Auto) 0 % (0-3) Basophils (%) (Auto) 0 % (0-3) Neutrophils # (Auto) 11.1 x10^3/uL (1.8-7.7) Lymphocytes # (Auto) 1.9 x10^3/uL (1.0-4.8) Monocytes # (Auto) 0.6 x10^3/uL (0.0-1.1) Eosinophils # (Auto) 0.0 x10^3/uL (0.0-0.7) Basophils # (Auto) 0.0 x10^3/uL (0.0-0.2) Sodium Level 139 mmol/L (136-145) Potassium Level 4.0 mmol/L (3.5-5.1) Chloride Level 108 mmol/L (98-107) Carbon Dioxide Level 18 mmol/L (21-32) Anion Gap 13 (6-14) Blood Urea Nitrogen 19 mg/dL (7-20) Creatinine 0.9 mg/dL (0.6-1.0) Estimated GFR (Cockcroft-Gault) 80.5 Glucose Level 159 mg/dL (70-99) Calcium Level 8.2 mg/dL (8.5-10.1) Test 10/22/19 08:30 10/22/19 12:32 O2 Saturation 93 % (92-99) Arterial Blood pH 7.34 (7.35-7.45) Arterial Blood pCO2 at Patient Temp 33 mmHg (35-46) Arterial Blood pO2 at Patient Temp 70 mmHg (75-108) Arterial Blood HCO3 17 mmol/L (21-28) Arterial Blood Base Excess -8 mmol/L (-3-3) FiO2 40% vent Glucose (Fingerstick) 136 mg/dL (70-99) Medications Current Medications Levofloxacin/ Dextrose 150 ml @ 100 mls/hr Q24H IV Last administered on 10/22/19at 09:23; Start 10/22/19 at 10:00 Levofloxacin/ Dextrose (Levaquin Per Pharmacy) 1 each PRN DAILY PRN MC SEE COMMENTS; Start 10/22/19 at 09:15 Vitals/I & O Vital Sign - Last 24 Hours 10/21/19 10/21/19 10/21/19 10/21/19 15:44 15:59 16:00 17:00 Temp 98.4 98.4 Pulse 45 48 Resp 16 16 B/P (MAP) 124/78 (93) 121/79 (93) Pulse Ox 99 99 99 O2 Delivery Mechanical Ventilator Ventilator Ventilator Ventilator 10/21/19 10/21/19 10/21/19 10/21/19 18:00 19:00 19:35 20:00 Pulse 50 53 Resp 16 16 B/P (MAP) 127/74 (91) 107/68 (81) Pulse Ox 99 100 99 O2 Delivery Ventilator Ventilator Ventilator Mechanical Ventilator 10/21/19 10/21/19 10/21/19 10/21/19 20:00 21:00 22:00 23:00 Temp 98.0 98.0 Pulse 69 67 47 48 Resp 16 16 16 16 B/P (MAP) 135/77 (96) 149/88 (108) 126/78 (94) 131/81 (98) Pulse Ox 100 100 100 100 O2 Delivery Ventilator Ventilator Ventilator Ventilator 10/21/19 10/21/19 10/22/19 10/22/19 23:39 23:59 00:00 01:00 Temp 97.9 97.9 Pulse 48 49 Resp 16 16 B/P (MAP) 132/79 (96) 139/80 (99) Pulse Ox 99 100 100 O2 Delivery Ventilator Mechanical Ventilator Ventilator Ventilator 10/22/19 10/22/19 10/22/19 10/22/19 02:00 03:00 03:15 03:51 Pulse 48 49 Resp 16 16 49 B/P (MAP) 128/76 (93) 133/79 (97) Pulse Ox 100 100 99 99 O2 Delivery Ventilator Ventilator Ventilator 10/22/19 10/22/19 10/22/19 10/22/19 04:00 04:00 04:21 05:00 Temp 97.2 97.2 Pulse 54 51 Resp 16 24 16 B/P (MAP) 141/88 (105) 120/74 (89) Pulse Ox 100 100 100 O2 Delivery Ventilator Mechanical Ventilator Ventilator Ventilator 10/22/19 10/22/19 10/22/19 10/22/19 06:00 07:00 07:34 08:00 Pulse 52 52 Resp 16 16 B/P (MAP) 124/76 (92) 123/74 (90) Pulse Ox 100 100 99 O2 Delivery Ventilator Ventilator Ventilator Mechanical Ventilator 10/22/19 10/22/19 10/22/19 10/22/19 08:00 09:00 09:45 10:00 Temp 97.7 97.7 Pulse 60 63 66 Resp 16 16 16 B/P (MAP) 132/79 (96) 135/81 (99) 140/73 (95) Pulse Ox 100 99 98 99 O2 Delivery Ventilator Ventilator Ventilator Ventilator 10/22/19 10/22/19 10/22/19 10/22/19 11:00 11:27 12:00 12:00 Temp 97.8 97.8 Pulse 71 80 Resp 16 16 B/P (MAP) 138/68 (91) 128/77 (94) Pulse Ox 98 98 100 O2 Delivery Ventilator Ventilator Mechanical Ventilator Ventilator 10/22/19 10/22/19 12:57 13:00 Pulse 69 Resp 16 B/P (MAP) 133/68 (89) Pulse Ox 99 98 O2 Delivery Ventilator Ventilator Intake and Output 10/21/19 10/21/19 10/22/19 15:00 23:00 07:00 Intake Total 100 ml 2573 ml 2390.4 ml Output Total 515 ml 925 ml 690 ml Balance -415 ml 1648 ml 1700.4 ml Justicifation of Admission Dx: Justifications for Admission: Justification of Admission Dx: Yes Respiratory Failure: Airway Obstruction CIRA MARCH MD Oct 22, 2019 15:22
[2019-10-23] VITALS (24 sets, daily range): BP systolic 88–165; BP diastolic 64–92
[2019-10-23] MEDS: diphenhydrAMINE 50 MG/ML VIAL IVP PRN (03:53)
[2019-10-23] MEDS: PROPOFOL 100 ML IV PRN ×2 (03:53→07:55)
[2019-10-23] MEDS: methylPREDNISolone SOD SUCC PF 40 MG/ML VIAL. IV SCH ×3 (05:48→21:40)
[2019-10-23] MEDS: INSULIN LISPRO 300 UNITS/3 ML VIAL. SQ SCH ×4 (05:57→17:17)
[2019-10-23] MEDS: ENOXAPARIN 40 MG/0.4 ML SYRINGE. SQ SCH (07:55)
[2019-10-23] MEDS: CHLORHEXIDINE 0.12% 15 ML MOUTHWASH. MM SCH ×2 (07:55→20:56)
[2019-10-23] MEDS: DOCUSATE SODIUM 100 MG CAPSULE. PO SCH ×2 (07:55→20:57)
[2019-10-23] MEDS: FAMOTIDINE 20 MG/2 ML VIAL IVP SCH ×2 (07:55→20:53)
[2019-10-23 08:43] LABS: BASE EXCESS ABG -6 mmol/L (-3-3); HCO3 ABG 17 mmol/L (21-28); PCO2 ABG 29 mmHg (35-46); PO2 ABG 102 mmHg (75-108); SAT O2 ABG 97 % (92-99)
[2019-10-23 08:48] LABS: FIO2 ABG 40
--- NOTE | 2019-10-23 09:27 | PDOC ---
PROGRESS NOTES Subjective Subjective no new problems Objective Objective Vital Signs Date Time Temp Pulse Resp B/P (MAP) Pulse Ox O2 Delivery O2 Flow Rate FiO2 10/23/19 08:26 98 Ventilator 10/23/19 08:00 49 16 140/86 (104) 10/23/19 04:00 98.1 98.1 Intake and Output 10/23/19 07:00 Intake Total 4945.4 ml Output Total 4005 ml Balance 940.4 ml Intake IV Total 3117.4 ml Tube Feeding 1378 ml Other 450 ml Output Urine Total 4005 ml Physical Exam Physical Exam on vent ,orally intubated, sedated Abdomen: Normal bowel sounds Heart: Regular rate, Normal S1 Extremities: No clubbing General: Other (sedated) HEENT: Atraumatic Lungs: Clear to auscultation MUSCULOSKELETAL: No swelling, Other Skin: No breakdown Diagnosis Problem List Problems Medical Problems: (1) ARYA inhibitor-aggravated angioedema Status: Acute (2) Airway compromise Status: Acute (3) Angio-edema Status: Acute Assessment Assessment IMP: 1. Acute respiratory failure due to acute angioedema likely due to lisinopril. 2. Acute gout, left ankle 3. Hypertension. 4. Acute angioedema. PLAN: WEAN OFF SEDATION TODAY SPOKE WITH PULMONARY. VENT WEANING TODAY SPOKE WITH PTS MOTHER. LABS NOTED. IV STEROIDS SPOKE WITH STAFF The patient is intubated and sedated in the Intensive Care Unit, started on IV Solu-Medrol, IV Pepcid and IV Benadryl as needed. Spoke with pulmonary continue vent management Acute respiratory failure due to angioedema-tongue is still swollen. Continue mechanical ventilation. Gout of left ankle and foot -office records reviewed. Hypokalemia-replaced potassium, corected Hyperglycemia-monitor with low-dose sliding scale insulin. IV fluids .labs reviewed dvt prevetuion gi prevention Plan Plan of Care Problems Medical Problems: (1) ARYA inhibitor-aggravated angioedema Status: Acute (2) Airway compromise Status: Acute (3) Angio-edema Status: Acute Comment Review of Relevant I have reviewed the following items sinan (where applicable) has been applied. Labs Laboratory Tests Test 10/22/19 12:32 10/22/19 17:21 10/23/19 00:33 10/23/19 05:46 Glucose (Fingerstick) 136 mg/dL (70-99) 156 mg/dL (70-99) 125 mg/dL (70-99) 129 mg/dL (70-99) Test 10/23/19 08:00 O2 Saturation 97 % (92-99) Arterial Blood pH 7.40 (7.35-7.45) Arterial Blood pCO2 at Patient Temp 29 mmHg (35-46) Arterial Blood pO2 at Patient Temp 102 mmHg (75-108) Arterial Blood HCO3 17 mmol/L (21-28) Arterial Blood Base Excess -6 mmol/L (-3-3) FiO2 40 Medications Current Medications Levofloxacin/ Dextrose 150 ml @ 100 mls/hr Q24H IV Last administered on 10/23/19at 07:55; Start 10/22/19 at 10:00 Vitals/I & O Vital Sign - Last 24 Hours 10/22/19 10/22/19 10/22/19 10/22/19 09:45 10:00 11:00 11:27 Pulse 66 71 Resp 16 16 B/P (MAP) 140/73 (95) 138/68 (91) Pulse Ox 98 99 98 98 O2 Delivery Ventilator Ventilator Ventilator Ventilator 10/22/19 10/22/19 10/22/19 10/22/19 12:00 12:00 12:57 13:00 Temp 97.8 97.8 Pulse 80 69 Resp 16 16 B/P (MAP) 128/77 (94) 133/68 (89) Pulse Ox 100 99 98 O2 Delivery Mechanical Ventilator Ventilator Ventilator Ventilator 10/22/19 10/22/19 10/22/19 10/22/19 14:00 15:00 15:28 16:00 Pulse 60 62 Resp 16 16 B/P (MAP) 119/65 (83) 117/57 (77) Pulse Ox 98 98 99 O2 Delivery Ventilator Ventilator Ventilator Mechanical Ventilator 10/22/19 10/22/19 10/22/19 10/22/19 16:00 17:00 17:19 17:33 Temp 98.0 98.0 Pulse 64 62 Resp 16 16 B/P (MAP) 133/75 (94) 120/71 (87) Pulse Ox 100 98 99 99 O2 Delivery Ventilator Ventilator Ventilator 10/22/19 10/22/19 10/22/19 10/22/19 17:49 18:00 19:00 20:00 Pulse 64 56 Resp 16 16 B/P (MAP) 145/82 (103) 131/76 (94) Pulse Ox 98 98 99 O2 Delivery Ventilator Ventilator Mechanical Ventilator 10/22/19 10/22/19 10/22/19 10/22/19 20:00 20:36 21:00 22:00 Temp 98.9 98.9 Pulse 66 55 53 Resp 16 16 16 B/P (MAP) 117/63 (81) 117/61 (79) 105/61 (76) Pulse Ox 100 100 100 100 O2 Delivery Ventilator Ventilator Ventilator Ventilator 10/22/19 10/22/19 10/22/19 10/22/19 22:40 23:00 23:25 23:59 Pulse 51 Resp 16 B/P (MAP) 119/67 (84) Pulse Ox 100 100 100 O2 Delivery Ventilator Ventilator Ventilator Mechanical Ventilator 10/23/19 10/23/19 10/23/19 10/23/19 00:01 01:00 02:00 03:00 Temp 97.8 97.8 Pulse 57 56 58 54 Resp 16 16 16 16 B/P (MAP) 135/86 (102) 143/80 (101) 125/77 (93) 122/73 (89) Pulse Ox 100 98 98 97 O2 Delivery Ventilator Ventilator Ventilator Ventilator 10/23/19 10/23/19 10/23/19 10/23/19 03:55 04:00 04:00 04:25 Temp 98.1 98.1 Pulse 51 Resp 16 16 B/P (MAP) 111/66 (81) Pulse Ox 98 97 98 O2 Delivery Ventilator Ventilator Mechanical Ventilator 10/23/19 10/23/19 10/23/19 10/23/19 04:55 05:00 06:00 07:00 Pulse 50 69 49 Resp 16 16 16 16 B/P (MAP) 119/68 (85) 140/87 (104) 127/77 (94) Pulse Ox 98 99 98 99 O2 Delivery Ventilator Ventilator Ventilator 10/23/19 10/23/19 10/23/19 08:00 08:00 08:26 Pulse 49 Resp 16 B/P (MAP) 140/86 (104) Pulse Ox 98 98 O2 Delivery Ventilator Mechanical Ventilator Ventilator Intake and Output 10/22/19 10/22/19 10/23/19 15:00 23:00 07:00 Intake Total 450 ml 2396.4 ml 2099 ml Output Total 1600 ml 1425 ml 980 ml Balance -1150 ml 971.4 ml 1119 ml Justicifation of Admission Dx: Justifications for Admission: Justification of Admission Dx: Yes Respiratory Failure: Airway Obstruction CIRA MARCH MD Oct 23, 2019 09:27
--- NOTE | 2019-10-23 09:38 | PDOC ---
PULMONARY PROGRESS NOTES Subjective off sedation, following some commands / tongue with improved swelling moderate ET secretions Vitals Vital Signs Date Time Temp Pulse Resp B/P (MAP) Pulse Ox O2 Delivery O2 Flow Rate FiO2 10/23/19 08:26 98 Ventilator 10/23/19 08:00 49 16 140/86 (104) 10/23/19 04:00 98.1 98.1 General: Alert, No acute distress HEENT: Other (nc at perrl orally intubated tongue edema nose clear neck no lad no thyromegaly) Lungs: Clear Cardiovascular: S1, S2 Abdomen: Soft, Non-tender, Other (no mass) Extremities: No Edema Skin: Warm Labs Laboratory Tests Test 10/21/19 17:31 10/21/19 23:15 10/22/19 03:15 10/22/19 05:51 Glucose (Fingerstick) 156 mg/dL (70-99) 166 mg/dL (70-99) 141 mg/dL (70-99) White Blood Count 13.6 x10^3/uL (4.0-11.0) Red Blood Count 3.91 x10^6/uL (3.50-5.40) Hemoglobin 10.9 g/dL (12.0-15.5) Hematocrit 33.5 % (36.0-47.0) Mean Corpuscular Volume 86 fL (79-100) Mean Corpuscular Hemoglobin 28 pg (25-35) Mean Corpuscular Hemoglobin Concent 33 g/dL (31-37) Red Cell Distribution Width 12.8 % (11.5-14.5) Platelet Count 291 x10^3/uL (140-400) Neutrophils (%) (Auto) 81 % (31-73) Lymphocytes (%) (Auto) 14 % (24-48) Monocytes (%) (Auto) 4 % (0-9) Eosinophils (%) (Auto) 0 % (0-3) Basophils (%) (Auto) 0 % (0-3) Neutrophils # (Auto) 11.1 x10^3/uL (1.8-7.7) Lymphocytes # (Auto) 1.9 x10^3/uL (1.0-4.8) Monocytes # (Auto) 0.6 x10^3/uL (0.0-1.1) Eosinophils # (Auto) 0.0 x10^3/uL (0.0-0.7) Basophils # (Auto) 0.0 x10^3/uL (0.0-0.2) Sodium Level 139 mmol/L (136-145) Potassium Level 4.0 mmol/L (3.5-5.1) Chloride Level 108 mmol/L (98-107) Carbon Dioxide Level 18 mmol/L (21-32) Anion Gap 13 (6-14) Blood Urea Nitrogen 19 mg/dL (7-20) Creatinine 0.9 mg/dL (0.6-1.0) Estimated GFR (Cockcroft-Gault) 80.5 Glucose Level 159 mg/dL (70-99) Calcium Level 8.2 mg/dL (8.5-10.1) Test 10/22/19 08:30 10/22/19 12:32 10/22/19 17:21 10/23/19 00:33 O2 Saturation 93 % (92-99) Arterial Blood pH 7.34 (7.35-7.45) Arterial Blood pCO2 at Patient Temp 33 mmHg (35-46) Arterial Blood pO2 at Patient Temp 70 mmHg (75-108) Arterial Blood HCO3 17 mmol/L (21-28) Arterial Blood Base Excess -8 mmol/L (-3-3) FiO2 40% vent Glucose (Fingerstick) 136 mg/dL (70-99) 156 mg/dL (70-99) 125 mg/dL (70-99) Test 10/23/19 05:46 10/23/19 08:00 Glucose (Fingerstick) 129 mg/dL (70-99) O2 Saturation 97 % (92-99) Arterial Blood pH 7.40 (7.35-7.45) Arterial Blood pCO2 at Patient Temp 29 mmHg (35-46) Arterial Blood pO2 at Patient Temp 102 mmHg (75-108) Arterial Blood HCO3 17 mmol/L (21-28) Arterial Blood Base Excess -6 mmol/L (-3-3) FiO2 40 Laboratory Tests Test 10/22/19 12:32 10/22/19 17:21 10/23/19 00:33 10/23/19 05:46 Glucose (Fingerstick) 136 mg/dL (70-99) 156 mg/dL (70-99) 125 mg/dL (70-99) 129 mg/dL (70-99) Test 10/23/19 08:00 O2 Saturation 97 % (92-99) Arterial Blood pH 7.40 (7.35-7.45) Arterial Blood pCO2 at Patient Temp 29 mmHg (35-46) Arterial Blood pO2 at Patient Temp 102 mmHg (75-108) Arterial Blood HCO3 17 mmol/L (21-28) Arterial Blood Base Excess -6 mmol/L (-3-3) FiO2 40 Medications Active Scripts Medications Dose Route/Sig Max Daily Dose Days Date Category Dose Instructions Naproxen 500 Mg Tablet 1 Tab PO BID 10 10/18/17 Rx Meloxicam 7.5 Mg Tablet 7.5 Mg PO DAILY 01/14/16 Reported Colace (Docusate Sodium) 100 Mg Capsule 100 Mg PO BID 06/30/15 Rx Oxycodone-Acetaminophen 10-325 (Oxycodone Hcl/Acetaminophen) 1 Each Tablet 1 Tab PO PRN Q4HRS PRN 06/30/15 Rx Osphena (Ospemifene) 60 Mg Tablet 60 Mg PO DAILY 06/22/15 Reported Soren-Mag Tablet Chewable (Calcium Carb/Magnesium Cmb #10) 1 Each Tab.chew 1 Each PO 12/24/14 Reported Nasacort (Triamcinolone Acetonide) 10.8 Ml [place] Unknown Dose NS DAILY 12/24/14 Reported [Oxycodone Hcl/Acetaminophen] 1 TAB Tablet 2 Tab PO PRN Q4HRS PRN 11/28/14 Rx [Oxycodone Hcl/Acetaminophen] 1 TAB Tablet 1 Tab PO PRN Q4HRS PRN 11/28/14 Rx Colace (Docusate Sodium) 100 Mg Capsule 100 Mg PO BID 11/28/14 Rx Cyclobenzaprine Hcl 10 Mg Tablet 10 Mg PO PRN TID PRN 11/19/14 Reported LAST DOSE GIVEN: DATE:11-28-14 TIME:0300 NEXT DOSE DUE: DATE:11-28-14 TIME:9:00 p.m. Stool Softener Tablet (Sennosides/Docusate Sodium) 1 Each Tablet 1 Each PO DAILY 11/19/14 Reported LAST DOSE GIVEN: DATE:11-28-14 TIME:9:00 a.m. NEXT DOSE DUE: DATE:11-29-14 TIME:9:00 a.m. Lisinopril 10 Mg Tablet 10 Mg PO DAILY 11/19/14 Reported LAST DOSE GIVEN: DATE:11-28-14 TIME:9:00 a.m. NEXT DOSE DUE: DATE:11-29-14 TIME:9:00 a.m. Comments cxr 10/22 reviewed new basal effusions Impression . IMPRESSION: 1. Acute respiratory failure secondary to angioedema. 2. Angioedema secondary to ARYA inhibitor. 3. Abnormal chest x-ray with right hilar prominence, will need ct chest post extubation 4. Hypertension. 5. electrolyte imbalance, hypo k 6. Tracheobronchitis, started on Abx 10/21 7. Abnormal cxr 10/22, small effusions Plan . PLAN AND RECOMMENDATIONS: 1. Tongue swelling has improved.. Positive air leak with cuff deflation today / moderate ET secretions but has good cough .on Abx CPAP trial today and possible extubation 2. Titrate FiO2 to keep O2 saturation more than 94%. 3. repeat chest x-ray still shows r hilar prominance, she will need a CT of the chest once extubated, will order for 10/23 4. Continue steroid. 5. Pepcid for stress ulcer prophylaxis./benadryl 6. Lovenox for DVT prophylaxis. 7. Continue ventilator support until the patient has positive air leak with cuff deflation. 8. replace k prn 9. Lasix for effusions today The findings and recommendations were discussed with RN and RT critically ill, cc time 30 min no overlap CHRISTELLE ROBISON MD Oct 23, 2019 09:38
[2019-10-23] MEDS ORDERED: FUROSEMIDE 40 MG/4 ML VIAL. IVP ONE (09:45)
--- NOTE | 2019-10-23 09:53 | RAD ---
Single AP view of the chest. Comparison: 10/21/2019. Indication: Right hilar prominence Findings: Endotracheal tube and nasogastric tubes are unchanged. The heart is not enlarged. There is no pneumothorax or effusion. Persistent opacity in the right hilum appears overall stable given the differences in projection angle of the examination on today's film. Impression: 1. Unchanged appearance of the right hilar prominence. Recommend cross-sectional imaging. Electronically signed by: Kole Franco MD (10/23/2019 9:50 AM) [id number]
[2019-10-23 11:05] LABS: BASE EXCESS ABG -5 mmol/L (-3-3); HCO3 ABG 19 mmol/L (21-28); PCO2 ABG 30 mmHg (35-46); PO2 ABG 68 mmHg (75-108); SAT O2 ABG 94 % (92-99)
--- NOTE | 2019-10-23 12:10 | NUR ---
Verbal order to extubate received from Dr. Jones at 1112. Patient extubated at 1145 to 4L NC.
--- NOTE | 2019-10-23 12:11 | NUR ---
Pt on CPAP trial most of this morning, doing well, awake following commands. Orders received to extubate pt. Extubated at 1145 with RT at bedside, tolerated well. Pt now on 4LNC, 02 sat 100%, resting peacefully, all VSS.
[2019-10-23 12:33] LABS: FIO2 ABG 40
--- NOTE | 2019-10-23 13:51 | NUR ---
SS following for discharge planning. SS reviewed pt chart and discussed with pt RN. Pt extubated and now on nasal canula oxygen. SS will continue to follow for discharge planning.
[2019-10-24] VITALS (13 sets, daily range): BP systolic 125–152; BP diastolic 55–82
[2019-10-24] MEDS: INSULIN LISPRO 300 UNITS/3 ML VIAL. SQ SCH ×5 (05:37→22:39)
[2019-10-24] MEDS: methylPREDNISolone SOD SUCC PF 40 MG/ML VIAL. IV SCH ×3 (05:37→20:40)
[2019-10-24] MEDS: FAMOTIDINE 20 MG/2 ML VIAL IVP SCH ×2 (08:29→20:41)
[2019-10-24] MEDS: DOCUSATE SODIUM 100 MG CAPSULE. PO SCH ×2 (08:29→20:36)
[2019-10-24] MEDS: CHLORHEXIDINE 0.12% 15 ML MOUTHWASH. MM SCH (08:35)
[2019-10-24] MEDS: ENOXAPARIN 40 MG/0.4 ML SYRINGE. SQ SCH (09:57)
--- NOTE | 2019-10-24 10:10 | PDOC ---
PROGRESS NOTES Subjective Subjective extubated yesterday Objective Objective Vital Signs Date Time Temp Pulse Resp B/P (MAP) Pulse Ox O2 Delivery O2 Flow Rate FiO2 10/24/19 08:00 Nasal Cannula 2.0 10/24/19 08:00 72 35 126/69 (88) 99 10/24/19 04:04 98.4 98.4 Intake and Output 10/24/19 07:00 Intake Total 3075 ml Output Total 5790 ml Balance -2715 ml Intake Oral 0 ml Tube Feeding 300 ml Blood Product IV Normal Saline Flush 2700 ml Other 75 ml Output Urine Total 5790 ml Physical Exam Abdomen: Normal bowel sounds Heart: Regular rate, Normal S1 Extremities: No clubbing General: Alert, Other HEENT: Atraumatic Lungs: Clear to auscultation MUSCULOSKELETAL: No swelling, Other Neuro: Normal speech Psych/Mental Status: Mood NL Skin: No breakdown Diagnosis Problem List Problems Medical Problems: (1) ARYA inhibitor-aggravated angioedema Status: Acute (2) Airway compromise Status: Acute (3) Angio-edema Status: Acute Assessment Assessment IMP: 1. Acute respiratory failure due to acute angioedema likely due to lisinopril. 2. Acute gout, left ankle 3. Hypertension. 4. Acute angioedema. PLAN: extubated yesterday speech to see for swalowing move out of icu later today LABS NOTED. IV STEROIDS SPOKE WITH STAFF The patient is intubated and sedated in the Intensive Care Unit, started on IV Solu-Medrol, IV Pepcid and IV Benadryl as needed. Spoke with pulmonary continue vent management Acute respiratory failure due to angioedema-tongue is still swollen. Continue mechanical ventilation. Gout of left ankle and foot -office records reviewed. Hypokalemia-replaced potassium, corected Hyperglycemia-monitor with low-dose sliding scale insulin. IV fluids .labs reviewed dvt prevetuion gi prevention Plan Plan of Care Problems Medical Problems: (1) ARYA inhibitor-aggravated angioedema Status: Acute (2) Airway compromise Status: Acute (3) Angio-edema Status: Acute Comment Review of Relevant I have reviewed the following items sinan (where applicable) has been applied. Labs Laboratory Tests Test 10/23/19 11:00 10/24/19 00:11 10/24/19 05:35 O2 Saturation 94 % (92-99) Arterial Blood pH 7.41 (7.35-7.45) Arterial Blood pCO2 at Patient Temp 30 mmHg (35-46) Arterial Blood pO2 at Patient Temp 68 mmHg (75-108) Arterial Blood HCO3 19 mmol/L (21-28) Arterial Blood Base Excess -5 mmol/L (-3-3) FiO2 40 Glucose (Fingerstick) 132 mg/dL (70-99) 113 mg/dL (70-99) Vitals/I & O Vital Sign - Last 24 Hours 10/23/19 10/23/19 10/23/19 10/23/19 10:20 11:00 11:00 11:59 Pulse 82 Resp 19 B/P (MAP) 136/76 (96) Pulse Ox 99 99 97 O2 Delivery Ventilator Ventilator Ventilator Mechanical Ventilator 10/23/19 10/23/19 10/23/19 10/23/19 12:00 13:00 14:00 15:00 Temp 98.2 98.2 Pulse 82 86 86 75 Resp 18 19 19 16 B/P (MAP) 141/76 (97) 141/89 (106) 144/86 (105) 146/88 (107) Pulse Ox 99 97 97 99 O2 Delivery Nasal Cannula Nasal Cannula Nasal Cannula Room Air O2 Flow Rate 4.0 4.0 4.0 10/23/19 10/23/19 10/23/19 10/23/19 15:54 16:00 17:00 18:00 Pulse 75 77 75 Resp 16 16 16 B/P (MAP) 146/88 (107) 117/68 (84) 120/66 (84) Pulse Ox 99 99 99 O2 Delivery Room Air Room Air Room Air Room Air 10/23/19 10/23/19 10/23/19 10/23/19 19:39 19:53 20:00 21:00 Temp 99.0 99.0 Pulse 72 70 76 Resp 23 21 21 B/P (MAP) 105/64 (78) 145/69 (94) 148/81 (103) Pulse Ox 99 98 99 O2 Delivery Nasal Cannula Nasal Cannula Nasal Cannula Nasal Cannula O2 Flow Rate 4.0 4.0 4.0 4.0 10/23/19 10/23/19 10/24/19 10/24/19 22:00 23:00 00:00 04:00 Pulse 72 72 72 68 Resp 24 18 18 29 B/P (MAP) 155/92 (113) 165/86 (112) 152/76 (101) 134/80 (98) Pulse Ox 99 100 100 100 O2 Delivery Nasal Cannula Nasal Cannula Nasal Cannula Nasal Cannula O2 Flow Rate 4.0 4.0 4.0 4.0 10/24/19 10/24/19 10/24/19 10/24/19 04:04 04:04 05:18 06:14 Temp 98.4 98.4 Pulse 63 62 Resp 28 13 B/P (MAP) 127/74 (91) 125/70 (88) Pulse Ox 99 100 O2 Delivery Room Air Nasal Cannula Nasal Cannula O2 Flow Rate 4.0 4.0 10/24/19 10/24/19 10/24/19 06:19 08:00 08:00 Pulse 100 72 Resp 35 B/P (MAP) 126/69 (88) Pulse Ox 99 O2 Delivery Nasal Cannula Nasal Cannula O2 Flow Rate 2.0 2.0 Intake and Output 10/23/19 10/23/19 10/24/19 15:00 23:00 07:00 Intake Total 300 ml 0 ml 2775 ml Output Total 2050 ml 790 ml 2950 ml Balance -1750 ml -790 ml -175 ml Justicifation of Admission Dx: Justifications for Admission: Justification of Admission Dx: Yes Respiratory Failure: Airway Obstruction CIRA MARCH MD Oct 24, 2019 10:10
--- NOTE | 2019-10-24 10:30 | PDOC ---
PULMONARY PROGRESS NOTES Subjective Patient extubated 10/22 no respiratory Vitals Vital Signs Date Time Temp Pulse Resp B/P (MAP) Pulse Ox O2 Delivery O2 Flow Rate FiO2 10/24/19 10:00 72 16 126/79 (95) 100 Nasal Cannula 2.0 10/24/19 04:04 98.4 98.4 ROS: No Nausea, No Chest Pain, No Abdominal Pain, No Increase Cough General: Alert, No acute distress HEENT: Other Lungs: Clear Cardiovascular: S1, S2 Abdomen: Soft, Non-tender, Other (no mass) Extremities: No Edema Skin: Warm Labs Laboratory Tests Test 10/22/19 12:32 10/22/19 17:21 10/23/19 00:33 10/23/19 05:46 Glucose (Fingerstick) 136 mg/dL (70-99) 156 mg/dL (70-99) 125 mg/dL (70-99) 129 mg/dL (70-99) Test 10/23/19 08:00 10/23/19 11:00 10/24/19 00:11 10/24/19 05:35 O2 Saturation 97 % (92-99) 94 % (92-99) Arterial Blood pH 7.40 (7.35-7.45) 7.41 (7.35-7.45) Arterial Blood pCO2 at Patient Temp 29 mmHg (35-46) 30 mmHg (35-46) Arterial Blood pO2 at Patient Temp 102 mmHg (75-108) 68 mmHg (75-108) Arterial Blood HCO3 17 mmol/L (21-28) 19 mmol/L (21-28) Arterial Blood Base Excess -6 mmol/L (-3-3) -5 mmol/L (-3-3) FiO2 40 40 Glucose (Fingerstick) 132 mg/dL (70-99) 113 mg/dL (70-99) Laboratory Tests Test 10/23/19 11:00 10/24/19 00:11 10/24/19 05:35 O2 Saturation 94 % (92-99) Arterial Blood pH 7.41 (7.35-7.45) Arterial Blood pCO2 at Patient Temp 30 mmHg (35-46) Arterial Blood pO2 at Patient Temp 68 mmHg (75-108) Arterial Blood HCO3 19 mmol/L (21-28) Arterial Blood Base Excess -5 mmol/L (-3-3) FiO2 40 Glucose (Fingerstick) 132 mg/dL (70-99) 113 mg/dL (70-99) Medications Active Scripts Medications Dose Route/Sig Max Daily Dose Days Date Category Dose Instructions Naproxen 500 Mg Tablet 1 Tab PO BID 10 10/18/17 Rx Meloxicam 7.5 Mg Tablet 7.5 Mg PO DAILY 01/14/16 Reported Colace (Docusate Sodium) 100 Mg Capsule 100 Mg PO BID 06/30/15 Rx Oxycodone-Acetaminophen 10-325 (Oxycodone Hcl/Acetaminophen) 1 Each Tablet 1 Tab PO PRN Q4HRS PRN 06/30/15 Rx Osphena (Ospemifene) 60 Mg Tablet 60 Mg PO DAILY 06/22/15 Reported Soren-Mag Tablet Chewable (Calcium Carb/Magnesium Cmb #10) 1 Each Tab.chew 1 Each PO 12/24/14 Reported Nasacort (Triamcinolone Acetonide) 10.8 Ml [place] Unknown Dose NS DAILY 12/24/14 Reported [Oxycodone Hcl/Acetaminophen] 1 TAB Tablet 2 Tab PO PRN Q4HRS PRN 11/28/14 Rx [Oxycodone Hcl/Acetaminophen] 1 TAB Tablet 1 Tab PO PRN Q4HRS PRN 11/28/14 Rx Colace (Docusate Sodium) 100 Mg Capsule 100 Mg PO BID 11/28/14 Rx Cyclobenzaprine Hcl 10 Mg Tablet 10 Mg PO PRN TID PRN 11/19/14 Reported LAST DOSE GIVEN: DATE:11-28-14 TIME:0300 NEXT DOSE DUE: DATE:11-28-14 TIME:9:00 p.m. Stool Softener Tablet (Sennosides/Docusate Sodium) 1 Each Tablet 1 Each PO DAILY 11/19/14 Reported LAST DOSE GIVEN: DATE:11-28-14 TIME:9:00 a.m. NEXT DOSE DUE: DATE:11-29-14 TIME:9:00 a.m. Lisinopril 10 Mg Tablet 10 Mg PO DAILY 11/19/14 Reported LAST DOSE GIVEN: DATE:11-28-14 TIME:9:00 a.m. NEXT DOSE DUE: DATE:11-29-14 TIME:9:00 a.m. Comments cxr 10/22 reviewed new basal effusions Impression . IMPRESSION: 1. Acute respiratory failure secondary to angioedema. 2. Angioedema secondary to ARYA inhibitor. 3. Abnormal chest x-ray with right hilar prominence, will need ct chest post extubation 4. Hypertension. 5. electrolyte imbalance, hypo k 6. Tracheobronchitis, started on Abx 10/21 7. Abnormal cxr 10/22, small effusions Plan . Patient extubated splint 10/22 No respiratory complaints today Speech evaluation Off of oxygen Okay to transfer out of the intensive care unit ELIDIA ESTRADA MD Oct 24, 2019 10:30
--- NOTE | 2019-10-24 12:52 | NUR ---
SS following up with discharge planning. SS reviewed pt chart and discussed with pt RN. Pt is currently on room air. Pt NPO. Pt's RN, contacting Dr. Segura to have swallow evaluation ordered. SS will continue to follow for discharge planning.
--- NOTE | 2019-10-24 16:17 | RAD ---
EXAM: CT Chest without IV contrast INDICATION: Reason: Right hilar prominence on cxr. Patient is status post endotracheal intubation for respiratory failure. TECHNIQUE: Multi-detector row CT images were acquired from the thoracic inlet through the upper abdomen without the use of IV contrast. Sagittal and coronal images were acquired from the transaxial data. All CT scans performed at this facility utilize dose optimization techniques as appropriate to the exam, including the following: Automated exposure control and adjustment of the mA and/or KV according to patient size (this includes techniques or standardized protocols for targeted exams where dose is indication/reason for exam). COMPARISON: Chest x-ray 10/23/2019, abdomen CT of 01/11/2015 FINDINGS: The absence of IV contrast limits evaluation of soft tissue pathology. CARDIOVASCULAR: Unremarkable MEDIASTINUM & GIUSEPPE: No adenopathy or masses. Calcified left hilar nodes. Prominence of the right hilum seen on previous chest x-ray reflects benign contours of the right main pulmonary artery. LUNGS: Lungs show patchy groundglass opacities bilaterally, somewhat random distribution, involving both the upper and lower lobes. PLEURAL SPACE: Curvilinear thickening of the right posterior pleura is present, mean Hounsfield units of 18. This could reflect layering complex pleural fluid versus fibrothorax from previous hemorrhage. Trace left pleural effusion also noted. OSSEOUS & SOFT TISSUE: Unremarkable ABDOMEN: The visualized portions of the upper abdomen are unremarkable. IMPRESSION: 1. No hilar mass or adenopathy. 2. Patchy groundglass attenuation to the lungs. Correlate clinically for any evidence of atypical pneumonia. 3. Small left pleural effusion and right pleural thickening that could reflect sequela of old hemorrhage. Attention on follow-up could be beneficial. Electronically signed by: Dex Valderrama MD (10/24/2019 4:13 PM) [id number]
--- NOTE | 2019-10-24 16:43 | NUR ---
report given to CECE Cantrell. pt transferred to room 664 via w/c.
--- NOTE | 2019-10-24 22:00 | NUR ---
While rounding with day shift RN, Tamia, patient seemed confused and is demonstrating dissociative like behavior. Tamia RN was unable to state wether this was normal for the patient as she had transferred from ICU this day. Patient was able to answer questions appropriately when asked date, president, and place she is at. Notified Dr. Segura of patients behavior as I was aware that he is familiar with patients normal behaviors. Dr. Segura stated that this was not her baseline. VSS. Orders given from Dr. Segura for CT head and AM lab work. This RN will continue to monitor patient.
[2019-10-24] MEDS: AMINO AC 3%/ELECTROLYTE/GLYCER 1,000 ML IV SCH (22:39)
--- NOTE | 2019-10-24 22:41 | RAD ---
Exam: CT head INDICATION: Altered mental status TECHNIQUE: Sequential axial images through the head were obtained without the administration of IV contrast. Comparisons: None FINDINGS: No focal parenchymal lesion or hemorrhage is identified. There is no midline shift or sulcal effacement. No acute vascular territory infarction is identified. Hassan-white distinction is preserved. The ventricular system is within normal limits without compression hydrocephalus. The basal cisterns are well maintained. The visualized portions of the paranasal sinuses and mastoid air cells are well-pneumatized. No acute fractures. IMPRESSION: No acute intracranial abnormality. Exposure: One or more of the following in the visualized dose reduction techniques were utilized for this examination: 1. Automated exposure control 2. Adjustment of the MA and/or KV according to patient size Use of iterative of reconstructive technique Electronically signed by: Joel Rubio MD (10/24/2019 10:38 PM) [id number]
[2019-10-25 03:00] VITALS: BP 122/68
[2019-10-25 05:18] LABS: BASO # 0.2 x10^3/uL (0.0-0.2); BASO % 1 % (0-3); EOS % 0 % (0-3); HEMATOCRIT 35.4 % (36.0-47.0); HEMOGLOBIN 11.8 g/dL (12.0-15.5); LYMPH # 2.3 x10^3/uL (1.0-4.8); LYMPH % 14 % (24-48); MEAN CORPUSCULAR HEMOGLOBIN 28 pg (25-35); MEAN CORPUSCULAR HGB CONC 33 g/dL (31-37); MEAN CORPUSCULAR VOLUME 85 fL (79-100); MONO # 0.9 x10^3/uL (0.0-1.1); MONO % 6 % (0-9); NEUT # 13.3 x10^3/uL (1.8-7.7); NEUT % 80 % (31-73); PLATELET COUNT 321 x10^3/uL (140-400); RED BLOOD COUNT 4.19 x10^6/uL (3.50-5.40); WHITE BLOOD COUNT 16.7 x10^3/uL (4.0-11.0)
[2019-10-25 05:38] LABS: CALCIUM 9.3 mg/dL (8.5-10.1); GFR 71.3; MAGNESIUM 2.4 mg/dL (1.8-2.4); POTASSIUM 3.3 mmol/L (3.5-5.1)
[2019-10-25] MEDS: INSULIN LISPRO 300 UNITS/3 ML VIAL. SQ SCH ×3 (05:42→18:00)
[2019-10-25 06:58] LABS: % LYMPHS 14 % (24-48); % MONOS 4 % (0-10); % SEGS 82 % (35-66); PLT ESTIMATE ADEQUATE (ADEQUATE)
[2019-10-25 07:39] VITALS: BP 108/79
[2019-10-25] MEDS: DOCUSATE SODIUM 100 MG CAPSULE. PO SCH ×2 (09:00→21:35)
--- NOTE | 2019-10-25 09:38 | PDOC ---
PULMONARY PROGRESS NOTES Subjective Patient confused currently off of oxygen Vitals Vital Signs Date Time Temp Pulse Resp B/P (MAP) Pulse Ox O2 Delivery O2 Flow Rate FiO2 10/25/19 07:39 99.9 82 20 108/79 (89) 96 Room Air 99.9 10/24/19 12:04 2.0 General: Alert, No acute distress Lungs: Clear Cardiovascular: S1, S2 Abdomen: Soft, Non-tender, Other (no mass) Extremities: No Edema Skin: Warm Labs Laboratory Tests Test 10/23/19 11:00 10/24/19 00:11 10/24/19 05:35 10/24/19 12:00 O2 Saturation 94 % (92-99) Arterial Blood pH 7.41 (7.35-7.45) Arterial Blood pCO2 at Patient Temp 30 mmHg (35-46) Arterial Blood pO2 at Patient Temp 68 mmHg (75-108) Arterial Blood HCO3 19 mmol/L (21-28) Arterial Blood Base Excess -5 mmol/L (-3-3) FiO2 40 Glucose (Fingerstick) 132 mg/dL (70-99) 113 mg/dL (70-99) 116 mg/dL (70-99) Test 10/24/19 18:23 10/24/19 22:05 10/25/19 05:00 10/25/19 05:36 Glucose (Fingerstick) 124 mg/dL (70-99) 122 mg/dL (70-99) 112 mg/dL (70-99) White Blood Count 16.7 x10^3/uL (4.0-11.0) Red Blood Count 4.19 x10^6/uL (3.50-5.40) Hemoglobin 11.8 g/dL (12.0-15.5) Hematocrit 35.4 % (36.0-47.0) Mean Corpuscular Volume 85 fL (79-100) Mean Corpuscular Hemoglobin 28 pg (25-35) Mean Corpuscular Hemoglobin Concent 33 g/dL (31-37) Red Cell Distribution Width 13.0 % (11.5-14.5) Platelet Count 321 x10^3/uL (140-400) Neutrophils (%) (Auto) 80 % (31-73) Lymphocytes (%) (Auto) 14 % (24-48) Monocytes (%) (Auto) 6 % (0-9) Eosinophils (%) (Auto) 0 % (0-3) Basophils (%) (Auto) 1 % (0-3) Neutrophils # (Auto) 13.3 x10^3/uL (1.8-7.7) Lymphocytes # (Auto) 2.3 x10^3/uL (1.0-4.8) Monocytes # (Auto) 0.9 x10^3/uL (0.0-1.1) Eosinophils # (Auto) 0.0 x10^3/uL (0.0-0.7) Basophils # (Auto) 0.2 x10^3/uL (0.0-0.2) Segmented Neutrophils % 82 % (35-66) Lymphocytes % 14 % (24-48) Monocytes % 4 % (0-10) Platelet Estimate Adequate (ADEQUATE) Sodium Level 144 mmol/L (136-145) Potassium Level 3.3 mmol/L (3.5-5.1) Chloride Level 108 mmol/L (98-107) Carbon Dioxide Level 21 mmol/L (21-32) Anion Gap 15 (6-14) Blood Urea Nitrogen 31 mg/dL (7-20) Creatinine 1.0 mg/dL (0.6-1.0) Estimated GFR (Cockcroft-Gault) 71.3 Glucose Level 130 mg/dL (70-99) Calcium Level 9.3 mg/dL (8.5-10.1) Magnesium Level 2.4 mg/dL (1.8-2.4) Test 10/25/19 07:06 Glucose (Fingerstick) 111 mg/dL (70-99) Laboratory Tests Test 10/24/19 12:00 10/24/19 18:23 10/24/19 22:05 10/25/19 05:00 Glucose (Fingerstick) 116 mg/dL (70-99) 124 mg/dL (70-99) 122 mg/dL (70-99) White Blood Count 16.7 x10^3/uL (4.0-11.0) Red Blood Count 4.19 x10^6/uL (3.50-5.40) Hemoglobin 11.8 g/dL (12.0-15.5) Hematocrit 35.4 % (36.0-47.0) Mean Corpuscular Volume 85 fL (79-100) Mean Corpuscular Hemoglobin 28 pg (25-35) Mean Corpuscular Hemoglobin Concent 33 g/dL (31-37) Red Cell Distribution Width 13.0 % (11.5-14.5) Platelet Count 321 x10^3/uL (140-400) Neutrophils (%) (Auto) 80 % (31-73) Lymphocytes (%) (Auto) 14 % (24-48) Monocytes (%) (Auto) 6 % (0-9) Eosinophils (%) (Auto) 0 % (0-3) Basophils (%) (Auto) 1 % (0-3) Neutrophils # (Auto) 13.3 x10^3/uL (1.8-7.7) Lymphocytes # (Auto) 2.3 x10^3/uL (1.0-4.8) Monocytes # (Auto) 0.9 x10^3/uL (0.0-1.1) Eosinophils # (Auto) 0.0 x10^3/uL (0.0-0.7) Basophils # (Auto) 0.2 x10^3/uL (0.0-0.2) Segmented Neutrophils % 82 % (35-66) Lymphocytes % 14 % (24-48) Monocytes % 4 % (0-10) Platelet Estimate Adequate (ADEQUATE) Sodium Level 144 mmol/L (136-145) Potassium Level 3.3 mmol/L (3.5-5.1) Chloride Level 108 mmol/L (98-107) Carbon Dioxide Level 21 mmol/L (21-32) Anion Gap 15 (6-14) Blood Urea Nitrogen 31 mg/dL (7-20) Creatinine 1.0 mg/dL (0.6-1.0) Estimated GFR (Cockcroft-Gault) 71.3 Glucose Level 130 mg/dL (70-99) Calcium Level 9.3 mg/dL (8.5-10.1) Magnesium Level 2.4 mg/dL (1.8-2.4) Test 10/25/19 05:36 10/25/19 07:06 Glucose (Fingerstick) 112 mg/dL (70-99) 111 mg/dL (70-99) Medications Active Scripts Medications Dose Route/Sig Max Daily Dose Days Date Category Dose Instructions Naproxen 500 Mg Tablet 1 Tab PO BID 10 10/18/17 Rx Meloxicam 7.5 Mg Tablet 7.5 Mg PO DAILY 01/14/16 Reported Colace (Docusate Sodium) 100 Mg Capsule 100 Mg PO BID 06/30/15 Rx Oxycodone-Acetaminophen 10-325 (Oxycodone Hcl/Acetaminophen) 1 Each Tablet 1 Tab PO PRN Q4HRS PRN 06/30/15 Rx Osphena (Ospemifene) 60 Mg Tablet 60 Mg PO DAILY 06/22/15 Reported Soren-Mag Tablet Chewable (Calcium Carb/Magnesium Cmb #10) 1 Each Tab.chew 1 Each PO 12/24/14 Reported Nasacort (Triamcinolone Acetonide) 10.8 Ml [place] Unknown Dose NS DAILY 12/24/14 Reported [Oxycodone Hcl/Acetaminophen] 1 TAB Tablet 2 Tab PO PRN Q4HRS PRN 11/28/14 Rx [Oxycodone Hcl/Acetaminophen] 1 TAB Tablet 1 Tab PO PRN Q4HRS PRN 11/28/14 Rx Colace (Docusate Sodium) 100 Mg Capsule 100 Mg PO BID 11/28/14 Rx Cyclobenzaprine Hcl 10 Mg Tablet 10 Mg PO PRN TID PRN 11/19/14 Reported LAST DOSE GIVEN: DATE:11-28-14 TIME:0300 NEXT DOSE DUE: DATE:11-28-14 TIME:9:00 p.m. Stool Softener Tablet (Sennosides/Docusate Sodium) 1 Each Tablet 1 Each PO DAILY 11/19/14 Reported LAST DOSE GIVEN: DATE:11-28-14 TIME:9:00 a.m. NEXT DOSE DUE: DATE:11-29-14 TIME:9:00 a.m. Lisinopril 10 Mg Tablet 10 Mg PO DAILY 11/19/14 Reported LAST DOSE GIVEN: DATE:11-28-14 TIME:9:00 a.m. NEXT DOSE DUE: DATE:11-29-14 TIME:9:[address] reviewed mild alveolitis, atelectasis of the right lower lobe Impression . IMPRESSION: 1. Acute respiratory failure secondary to angioedema. 2. Angioedema secondary to ARYA inhibitor. 3. Abnormal chest x-ray with right hilar prominence, will need ct chest post extubation 4. Hypertension. 5. electrolyte imbalance, hypo k 6. Tracheobronchitis, started on Abx 10/21 7. Abnormal cxr 10/22, small effusions 8. Encephalopathy, suspect metabolic, possibly toxic 1. No hilar mass or adenopathy. 2. Patchy groundglass attenuation to the lungs. Correlate clinically for any evidence of atypical pneumonia. 3. Small left pleural effusion and right pleural thickening that could reflect sequela of old hemorrhage. Attention on follow-up could be beneficial. Plan . Consulted, started on antibiotics, CT chest reviewed looks like more of an alveolitis than true infection Patient extubated splint 10/22 Continue current support MAR is reviewed all sedating medications stop ELIDIA ESTRADA MD Oct 25, 2019 09:38
--- NOTE | 2019-10-25 09:50 | PDOC ---
PROGRESS NOTES Subjective Subjective moved out of icu last evening , pt having hallicinations last night Objective Objective Vital Signs Date Time Temp Pulse Resp B/P (MAP) Pulse Ox O2 Delivery O2 Flow Rate FiO2 10/25/19 07:39 99.9 82 20 108/79 (89) 96 Room Air 99.9 10/24/19 12:04 2.0 Intake and Output 10/25/19 06:59 Intake Total 600 ml Output Total 900 ml Balance -300 ml Blood Product IV Normal Saline Flush 75 ml Other 525 ml Output Urine Total 900 ml # Voids 2 Physical Exam Abdomen: Normal bowel sounds Heart: Regular rate, Normal S1 Extremities: No clubbing General: Other (confused talking to self hallucinating) HEENT: Atraumatic Lungs: Other (crackles) MUSCULOSKELETAL: No swelling, Other Skin: No breakdown Diagnosis Problem List Problems Medical Problems: (1) ARYA inhibitor-aggravated angioedema Status: Acute (2) Airway compromise Status: Acute (3) Angio-edema Status: Acute Assessment Assessment IMP:Psychosis icu psychosis vs infection 1. Acute respiratory failure due to acute angioedema likely due to lisinopril. 2. Acute gout, left ankle 3. Hypertension. 4. Acute angioedema. 5.Fever PLAN:c/s r/o sepsis id consult psyche consult on levaquin and solumedrol. wbc 16 trending up,pot 3.[address] head -ve Ct chest ground glass opacity. spoke with pts mom extubated 2 days ago speech to see for swalowing move out of icu yesterday The patient is intubated and sedated in the Intensive Care Unit, started on IV Solu-Medrol, IV Pepcid and IV Benadryl as needed. Spoke with pulmonary continue vent management Acute respiratory failure due to angioedema-tongue is still swollen. Continue mechanical ventilation. Gout of left ankle and foot -office records reviewed. Hypokalemia-replaced potassium, corected Hyperglycemia-monitor with low-dose sliding scale insulin. IV fluids .labs reviewed dvt prevetuion gi prevention Plan Plan of Care Problems Medical Problems: (1) ARYA inhibitor-aggravated angioedema Status: Acute (2) Airway compromise Status: Acute (3) Angio-edema Status: Acute Comment Review of Relevant I have reviewed the following items sinan (where applicable) has been applied. Labs Laboratory Tests Test 10/24/19 12:00 10/24/19 18:23 10/24/19 22:05 10/25/19 05:00 Glucose (Fingerstick) 116 mg/dL (70-99) 124 mg/dL (70-99) 122 mg/dL (70-99) White Blood Count 16.7 x10^3/uL (4.0-11.0) Red Blood Count 4.19 x10^6/uL (3.50-5.40) Hemoglobin 11.8 g/dL (12.0-15.5) Hematocrit 35.4 % (36.0-47.0) Mean Corpuscular Volume 85 fL (79-100) Mean Corpuscular Hemoglobin 28 pg (25-35) Mean Corpuscular Hemoglobin Concent 33 g/dL (31-37) Red Cell Distribution Width 13.0 % (11.5-14.5) Platelet Count 321 x10^3/uL (140-400) Neutrophils (%) (Auto) 80 % (31-73) Lymphocytes (%) (Auto) 14 % (24-48) Monocytes (%) (Auto) 6 % (0-9) Eosinophils (%) (Auto) 0 % (0-3) Basophils (%) (Auto) 1 % (0-3) Neutrophils # (Auto) 13.3 x10^3/uL (1.8-7.7) Lymphocytes # (Auto) 2.3 x10^3/uL (1.0-4.8) Monocytes # (Auto) 0.9 x10^3/uL (0.0-1.1) Eosinophils # (Auto) 0.0 x10^3/uL (0.0-0.7) Basophils # (Auto) 0.2 x10^3/uL (0.0-0.2) Segmented Neutrophils % 82 % (35-66) Lymphocytes % 14 % (24-48) Monocytes % 4 % (0-10) Platelet Estimate Adequate (ADEQUATE) Sodium Level 144 mmol/L (136-145) Potassium Level 3.3 mmol/L (3.5-5.1) Chloride Level 108 mmol/L (98-107) Carbon Dioxide Level 21 mmol/L (21-32) Anion Gap 15 (6-14) Blood Urea Nitrogen 31 mg/dL (7-20) Creatinine 1.0 mg/dL (0.6-1.0) Estimated GFR (Cockcroft-Gault) 71.3 Glucose Level 130 mg/dL (70-99) Calcium Level 9.3 mg/dL (8.5-10.1) Magnesium Level 2.4 mg/dL (1.8-2.4) Test 10/25/19 05:36 10/25/19 07:06 Glucose (Fingerstick) 112 mg/dL (70-99) 111 mg/dL (70-99) Microbiology 10/23/19 Gram Stain Evaluation - Final, Resulted 10/23/19 Respiratory Culture, Resulted Pending Medications Current Medications Amino Acids/ Glycerin/ Electrolytes 1,000 ml @ 80 mls/hr [id number] IV Last administered on 10/24/19at 22:39; Start 10/24/19 at 22:30 Methylprednisolone Sodium Succinate (SOLU-Medrol 40MG VIAL) 20 mg BID IV ; Start 10/25/19 at 09:00; Stop 10/18/20 at 09:00 Potassium Chloride/Water 100 ml @ 100 mls/hr 1X ONCE IV ; Start 10/25/19 at 09:30; Stop 10/25/19 at 10:29; Status UNV Vitals/I & O Vital Sign - Last 24 Hours 10/24/19 10/24/19 10/24/19 10/24/19 10:00 11:00 11:56 12:04 Temp 98.1 98.1 Pulse 72 87 76 Resp 16 31 26 B/P (MAP) 126/79 (95) 145/55 (85) 138/81 (100) Pulse Ox 100 100 100 O2 Delivery Nasal Cannula Nasal Cannula Nasal Cannula Nasal Cannula O2 Flow Rate 2.0 2.0 2.0 2.0 10/24/19 10/24/19 10/24/19 10/24/19 13:03 15:00 19:00 20:00 Temp 100.8 100.8 Pulse 79 76 91 Resp 21 12 14 B/P (MAP) 128/79 (95) 136/75 (95) 138/60 (86) Pulse Ox 100 98 98 O2 Delivery Room Air Room Air Room Air Room Air 10/24/19 10/25/19 10/25/19 23:00 03:00 07:39 Temp 99.7 99.8 99.9 99.7 99.8 99.9 Pulse 81 91 82 Resp 16 14 20 B/P (MAP) 144/82 (102) 122/68 (86) 108/79 (89) Pulse Ox 95 98 96 O2 Delivery Room Air Room Air Room Air Intake and Output 10/24/19 10/24/19 10/25/19 14:59 22:59 06:59 Intake Total 525 ml 75 ml Output Total 900 ml Balance -375 ml 75 ml Justicifation of Admission Dx: Justifications for Admission: Justification of Admission Dx: Yes Respiratory Failure: Airway Obstruction CIRA MARCH MD Oct 25, 2019 09:49
[2019-10-25] MEDS: methylPREDNISolone SOD SUCC PF 40 MG/ML VIAL. IV SCH ×2 (09:57→21:35)
[2019-10-25] MEDS: FAMOTIDINE 20 MG/2 ML VIAL IVP SCH ×2 (09:58→21:35)
[2019-10-25] MEDS: ENOXAPARIN 40 MG/0.4 ML SYRINGE. SQ SCH (09:58)
[2019-10-25] MEDS: POTASSIUM CHLORIDE 10MEQ 100 ML IV SCH ×2 (10:55→13:02)
[2019-10-25] MEDS: AMINO AC 3%/ELECTROLYTE/GLYCER 1,000 ML IV SCH ×2 (10:56→23:59)
--- NOTE | 2019-10-25 11:01 | NUR ---
SW following. Spoke with RN and reviewed chart. Coordinated care with Dr. Segura. SW attempted to meet with pt. Pt hallucinating. Pt transferred from ICU on 10/23. Pt on room air. Pt to have a psych consult and ID consult to see about psychosis or infection. PAT referral completed to . SW to continue following.
--- NOTE | 2019-10-25 11:04 | NUR ---
Patient changed from NPO to Regular Diet. Successful bedside swallow test according to speech. Patient must be reminded to focus on swallowing due to the excessive rambling, hallucination and dissociative behavior. Patient has a dry cough during the assessment.
[2019-10-25 11:39] VITALS: BP 136/82
--- NOTE | 2019-10-25 14:11 | NUR ---
Patient was bladder scan to check for retention : 1017 ml . Patient was straight cath - 1000 ml collected. Urine Sample and COVID sample sent to Lab. COVID test pending . Patient transferred from [facility] to [facility] for COVID pending status. Report given to Vandana.
[2019-10-25 14:23] LABS: BILIRUBIN,URINE NEGATIVE (NEG); CLARITY,URINE CLEAR; COLOR,URINE YELLOW; NITRITE,URINE NEGATIVE (NEG); PROTEIN,URINE NEGATIVE (NEG-TRACE)
[2019-10-25 14:32] LABS: BACTERIA,URINE 0 /HPF (0-FEW)
[2019-10-25] MEDS: DOXYCYCLINE HYCLATE 100 MG in IV DEXTROSE 5% 100ML 100 ML IV SCH ×2 (15:26→21:36)
[2019-10-25 15:35] VITALS: BP 155/88
[2019-10-25 19:45] VITALS: BP 145/85
--- NOTE | 2019-10-25 20:20 | PDOC1 ---
History & Psych Evaluation Date of Admission: Date of Admission DATE: 10/25/19 TIME: 20:04 Source: Source: Caregiver, Chart review, Patient Identification: Identification She is a 49-year-old female admitted with angioedema. Chief Complaint: Chief Complaint Hallucinations, psychosis, confusion. History of Present Illness: HPI: She is a 49-year-old female apparently with no prior psychiatric history admitted with lisinopril induced angioedema. She was intubated and stayed in ICU. She is S/P extubation and in the stepdown unit. Patient is reacting to internal stimuli, disorganized. Most of the information is obtained by chart review and nursing staff. Reportedly, she is talking to self and having audito ry hallucinations. When seen, she appears disorganized, reacting to internal stimuli, and looking at the board. Consistently referring to Facebook friends who were listening to her and sitting in front of her. Stating, she was seeing her mother and nephew on the roof. She was distracted and looking around the room. Appears bizarre and suspicious. She is not able to follow this contract writer's question when asked for psychiatric review of system. She constantly focused on president, talking about HIPAA law, [facility], and [employer]. Past Psychiatric History: Apparently no past psychiatric history. However information is limited Past Medical History: Angioedema Hypertension Gout Respiratory failure Family History: Family history of psychiatric illness is not available Social History: Social History: History of smoking for last 20 years. No history of alcoholism or drug abuse. Current Medications: Current Medications Current Medications Medications (Trade) Dose Ordered Sig/Oneyda Start Time Stop Time Status Last Admin Dose Admin Acetaminophen (Tylenol) 650 mg PRN Q6HRS PRN 10/19/19 10:45 Amino Acids/ Glycerin/ Electrolytes 1,000 ml @ 80 mls/hr [id number] 10/24/19 22:30 10/24/19 22:39 80 MLS/HR Chlorhexidine Gluconate (Peridex) 15 ml BID 10/19/19 09:00 10/24/19 16:32 DC 10/24/19 08:35 15 ML Diphenhydramine HCl (Benadryl) 25 mg PRN Q6HRS PRN 10/19/19 10:45 10/25/19 14:09 DC 10/23/19 03:53 25 MG Docusate Sodium (Colace) 100 mg BID 10/19/19 21:00 10/24/19 08:29 100 MG Doxycycline Hyclate 100 mg/ Dextrose 100 ml @ 50 mls/hr Q12HR 10/25/19 14:00 10/25/19 15:26 50 MLS/HR Enoxaparin Sodium (Lovenox 40mg Syringe) 40 mg Q24H 10/19/19 10:00 10/25/19 09:58 40 MG Etomidate (Amidate) 20 mg 1X ONCE 10/19/19 08:00 10/19/19 08:01 DC 10/19/19 06:55 20 MG Famotidine (Pepcid Vial) 20 mg BID 10/19/19 10:00 10/25/19 09:58 20 MG Fentanyl Citrate 30 ml @ 2.5 mls/hr CONT PRN 10/19/19 10:30 10/24/19 16:32 DC 10/23/19 04:25 2.5 MLS/HR Fentanyl Citrate (Fentanyl 2ml Vial) 50 mcg PRN Q1HR PRN 10/19/19 07:00 10/25/19 14:09 DC 10/19/19 09:28 50 MCG Furosemide (Lasix) 40 mg 1X ONCE 10/23/19 09:45 10/23/19 09:46 DC 10/23/19 09:42 40 MG Insulin Human Lispro (HumaLOG) 0-8 UNITS Q6HRS 10/21/19 12:00 10/22/19 17:22 2 UNITS Levofloxacin/ Dextrose 150 ml @ 100 mls/hr Q24H 10/22/19 10:00 10/25/19 13:52 DC 10/25/19 10:53 100 MLS/HR Levofloxacin/ Dextrose (Levaquin Per Pharmacy) 1 each PRN DAILY PRN 10/22/19 09:15 10/25/19 14:58 DC Linezolid/Dextrose 300 ml @ 300 mls/hr Q12HR 10/25/19 14:00 10/25/19 15:26 300 MLS/HR Methylprednisolone Sodium Succinate (SOLU-Medrol 40MG VIAL) 20 mg BID 10/25/19 09:00 10/18/20 09:00 10/25/19 09:57 20 MG Methylprednisolone Sodium Succinate (SOLU-Medrol 125MG VIAL) 125 mg 1X ONCE 10/19/19 07:00 10/19/19 07:01 DC 10/19/19 06:37 125 MG Midazolam HCl (Versed) 5 mg 1X ONCE 10/19/19 08:00 10/19/19 08:01 DC 10/19/19 08:00 5 MG Potassium Chloride 20 meq/ Sodium Chloride 1,010 ml @ 75 mls/hr [id number] 10/20/19 10:00 UNV Potassium Chloride/Sodium Chloride 1,000 ml @ 75 mls/hr [id number] 10/20/19 10:15 10/25/19 15:38 DC 10/25/19 10:55 75 MLS/HR Potassium Chloride/Water 100 ml @ 100 mls/hr Q1H 10/25/19 10:00 10/25/19 11:59 DC 10/25/19 13:02 100 MLS/HR Potassium Chloride (Klor-Con) 20 meq 1X ONCE 10/20/19 10:45 10/20/19 10:48 DC 10/20/19 12:47 20 MEQ Propofol 50 ml @ As Directed STK-MED ONCE 10/19/19 07:34 10/19/19 07:34 DC Sodium Chloride 1,000 ml @ 125 mls/hr Q8H 10/19/19 07:15 10/20/19 07:14 DC 10/19/19 21:48 125 MLS/HR Succinylcholine Chloride (Anectine) 100 mg 1X ONCE 10/19/19 08:00 10/19/19 08:01 DC 10/19/19 06:55 100 MG Allergies: Allergies: Coded Allergies: lisinopril (Verified Allergy, Severe, Swelling, 10/19/19) Pharyngeal swelling penicillin (Verified Allergy, Intermediate, 06/22/15) Mental Status Examination: Mental Status Examination 49-year-old female, appears her stated age, fairly nourished Uncooperative, distracted Disoriented Thought processes disorganized Reacting to internal stimuli Visual hallucinations seeing her mother and nephew and Facebook friends. Mood is dysthymic Affect is labile Insight is poor Impulse control is poor Judgment is poor Attention span and concentration poor Recent and remote memory poor ROS: CONSTITUTIONAL: No fever or chills EYES: No recent changes SKIN: No rash or itching CARDIOVASCULAR: No chest pain, syncope, palpitations, or edema RESPIRATORY: No SOB or cough GASTROINTESTINAL: No nausea, vomiting or abdominal pain NEUROLOGICAL: No headaches or weakness ENDOCRINE: No cold or heat intolerance GENITOURINARY: No urgency or frequency of urination MUSCULOSKELETAL: No back pain or joint pain LYMPHATICS: No enlarged lymph nodes PSYCHIATRIC: Psychosis, preoccupied with internal stimuli. Physical Exam: Refer to Physician's note. PET CARE TECHNICIAN: No focal deficit MSK: No EPS, TDK, or abnormal involuntary movements Vitals: Vitals Vital Signs Date Time Temp Pulse Resp B/P (MAP) Pulse Ox O2 Delivery O2 Flow Rate FiO2 10/25/19 15:35 98.7 83 17 155/88 (110) 99 Room Air 98.7 10/24/19 12:04 2.0 Labs: Labs Laboratory Tests Test 10/24/19 00:11 10/24/19 05:35 10/24/19 12:00 10/24/19 18:23 Glucose (Fingerstick) 132 mg/dL (70-99) 113 mg/dL (70-99) 116 mg/dL (70-99) 124 mg/dL (70-99) Test 10/24/19 22:05 10/25/19 05:00 10/25/19 05:36 10/25/19 07:06 Glucose (Fingerstick) 122 mg/dL (70-99) 112 mg/dL (70-99) 111 mg/dL (70-99) White Blood Count 16.7 x10^3/uL (4.0-11.0) Red Blood Count 4.19 x10^6/uL (3.50-5.40) Hemoglobin 11.8 g/dL (12.0-15.5) Hematocrit 35.4 % (36.0-47.0) Mean Corpuscular Volume 85 fL (79-100) Mean Corpuscular Hemoglobin 28 pg (25-35) Mean Corpuscular Hemoglobin Concent 33 g/dL (31-37) Red Cell Distribution Width 13.0 % (11.5-14.5) Platelet Count 321 x10^3/uL (140-400) Neutrophils (%) (Auto) 80 % (31-73) Lymphocytes (%) (Auto) 14 % (24-48) Monocytes (%) (Auto) 6 % (0-9) Eosinophils (%) (Auto) 0 % (0-3) Basophils (%) (Auto) 1 % (0-3) Neutrophils # (Auto) 13.3 x10^3/uL (1.8-7.7) Lymphocytes # (Auto) 2.3 x10^3/uL (1.0-4.8) Monocytes # (Auto) 0.9 x10^3/uL (0.0-1.1) Eosinophils # (Auto) 0.0 x10^3/uL (0.0-0.7) Basophils # (Auto) 0.2 x10^3/uL (0.0-0.2) Segmented Neutrophils % 82 % (35-66) Lymphocytes % 14 % (24-48) Monocytes % 4 % (0-10) Platelet Estimate Adequate (ADEQUATE) Sodium Level 144 mmol/L (136-145) Potassium Level 3.3 mmol/L (3.5-5.1) Chloride Level 108 mmol/L (98-107) Carbon Dioxide Level 21 mmol/L (21-32) Anion Gap 15 (6-14) Blood Urea Nitrogen 31 mg/dL (7-20) Creatinine 1.0 mg/dL (0.6-1.0) Estimated GFR (Cockcroft-Gault) 71.3 Glucose Level 130 mg/dL (70-99) Calcium Level 9.3 mg/dL (8.5-10.1) Magnesium Level 2.4 mg/dL (1.8-2.4) Test 10/25/19 11:26 10/25/19 11:27 10/25/19 14:00 10/25/19 17:57 Glucose (Fingerstick) 120 mg/dL (70-99) 95 mg/dL (70-99) Lactic Acid Level 2.0 mmol/L (0.4-2.0) Urine Collection Type Unknown Urine Color Yellow Urine Clarity Clear Urine pH 7.0 (<5.0-8.0) Urine Specific [place] 1.020 (1.000-1.030) Urine Protein Negative mg/dL (NEG-TRACE) Urine Glucose (UA) Negative mg/dL (NEG) Urine Ketones (Stick) Negative mg/dL (NEG) Urine Blood Negative (NEG) Urine Nitrite Negative (NEG) Urine Bilirubin Negative (NEG) Urine Urobilinogen Dipstick 1.0 mg/dL (0.2 mg/dL) Urine Leukocyte Esterase Negative (NEG) Urine RBC 1-2 /HPF (0-2) Urine WBC 1-4 /HPF (0-4) Urine Bacteria 0 /HPF (0-FEW) Urine Mucus Marked /LPF Laboratory Tests Test 10/24/19 22:05 10/25/19 05:00 10/25/19 05:36 10/25/19 07:06 Glucose (Fingerstick) 122 mg/dL (70-99) 112 mg/dL (70-99) 111 mg/dL (70-99) White Blood Count 16.7 x10^3/uL (4.0-11.0) Red Blood Count 4.19 x10^6/uL (3.50-5.40) Hemoglobin 11.8 g/dL (12.0-15.5) Hematocrit 35.4 % (36.0-47.0) Mean Corpuscular Volume 85 fL (79-100) Mean Corpuscular Hemoglobin 28 pg (25-35) Mean Corpuscular Hemoglobin Concent 33 g/dL (31-37) Red Cell Distribution Width 13.0 % (11.5-14.5) Platelet Count 321 x10^3/uL (140-400) Neutrophils (%) (Auto) 80 % (31-73) Lymphocytes (%) (Auto) 14 % (24-48) Monocytes (%) (Auto) 6 % (0-9) Eosinophils (%) (Auto) 0 % (0-3) Basophils (%) (Auto) 1 % (0-3) Neutrophils # (Auto) 13.3 x10^3/uL (1.8-7.7) Lymphocytes # (Auto) 2.3 x10^3/uL (1.0-4.8) Monocytes # (Auto) 0.9 x10^3/uL (0.0-1.1) Eosinophils # (Auto) 0.0 x10^3/uL (0.0-0.7) Basophils # (Auto) 0.2 x10^3/uL (0.0-0.2) Segmented Neutrophils % 82 % (35-66) Lymphocytes % 14 % (24-48) Monocytes % 4 % (0-10) Platelet Estimate Adequate (ADEQUATE) Sodium Level 144 mmol/L (136-145) Potassium Level 3.3 mmol/L (3.5-5.1) Chloride Level 108 mmol/L (98-107) Carbon Dioxide Level 21 mmol/L (21-32) Anion Gap 15 (6-14) Blood Urea Nitrogen 31 mg/dL (7-20) Creatinine 1.0 mg/dL (0.6-1.0) Estimated GFR (Cockcroft-Gault) 71.3 Glucose Level 130 mg/dL (70-99) Calcium Level 9.3 mg/dL (8.5-10.1) Magnesium Level 2.4 mg/dL (1.8-2.4) Test 10/25/19 11:26 10/25/19 11:27 10/25/19 14:00 10/25/19 17:57 Glucose (Fingerstick) 120 mg/dL (70-99) 95 mg/dL (70-99) Lactic Acid Level 2.0 mmol/L (0.4-2.0) Urine Collection Type Unknown Urine Color Yellow Urine Clarity Clear Urine pH 7.0 (<5.0-8.0) Urine Specific [place] 1.020 (1.000-1.030) Urine Protein Negative mg/dL (NEG-TRACE) Urine Glucose (UA) Negative mg/dL (NEG) Urine Ketones (Stick) Negative mg/dL (NEG) Urine Blood Negative (NEG) Urine Nitrite Negative (NEG) Urine Bilirubin Negative (NEG) Urine Urobilinogen Dipstick 1.0 mg/dL (0.2 mg/dL) Urine Leukocyte Esterase Negative (NEG) Urine RBC 1-2 /HPF (0-2) Urine WBC 1-4 /HPF (0-4) Urine Bacteria 0 /HPF (0-FEW) Urine Mucus Marked /LPF Diagnosis: Diagnosis: 1. Unspecified psychosis, rule out drug-induced psychosis (anesthetic agents, methylprednisolone) 2. Steroid-induced psychosis 3. Encephalopathy. Assessment: She is a 49-year-old female apparently with no prior psychiatric history based on information available, admitted with angioedema. She is S/P extubation, on methylprednisolone for psychosis. Etiology of psychosis is not clear, however, drug-induced psychosis or ICU psychosis are the possibilities. Anesthetic agen ts or methylprednisolone might be the causative agents. Recommended to cover with antipsychotics as steroids are required for her angioedema. Plan: 1. Start risperidone 1 mg twice a day for psychosis. 2. Monitor for psychosis, symptomatology, and adverse drug reaction. 3. We will titrate his dose of risperidone accordingly. 4. Monitor for safety. Thank you for involving inpatient care. DANIELITO BECKWITH MD Oct 25, 2019 20:20
[2019-10-25] MEDS: risperiDONE 1 MG TABLET. PO SCH (21:35)
[2019-10-25 23:00] VITALS: BP 144/87
[2019-10-26] MEDS: ACETAMINOPHEN 325 MG TABLET. PO PRN (03:27)
[2019-10-26 03:35] VITALS: BP 133/79
[2019-10-26 05:22] LABS: BASO # 0.1 x10^3/uL (0.0-0.2); BASO % 1 % (0-3); EOS % 0 % (0-3); HEMATOCRIT 35.6 % (36.0-47.0); HEMOGLOBIN 11.8 g/dL (12.0-15.5); LYMPH # 2.5 x10^3/uL (1.0-4.8); LYMPH % 17 % (24-48); MEAN CORPUSCULAR HEMOGLOBIN 28 pg (25-35); MEAN CORPUSCULAR HGB CONC 33 g/dL (31-37); MEAN CORPUSCULAR VOLUME 84 fL (79-100); MONO # 0.7 x10^3/uL (0.0-1.1); MONO % 5 % (0-9); NEUT # 11.6 x10^3/uL (1.8-7.7); NEUT % 78 % (31-73); PLATELET COUNT 329 x10^3/uL (140-400); RED BLOOD COUNT 4.23 x10^6/uL (3.50-5.40); WHITE BLOOD COUNT 14.8 x10^3/uL (4.0-11.0)
[2019-10-26] MEDS: INSULIN LISPRO 300 UNITS/3 ML VIAL. SQ SCH ×4 (06:00→16:15)
[2019-10-26 06:01] LABS: ALBUMIN 3.2 g/dL (3.4-5.0); ALBUMIN/GLOBULIN RATIO 0.8 (1.0-1.7); CALCIUM 8.9 mg/dL (8.5-10.1); CREATININE 0.7 mg/dL (0.6-1.0); GFR 107.6; POTASSIUM 3.3 mmol/L (3.5-5.1); TOTAL BILIRUBIN 0.6 mg/dL (0.2-1.0); TOTAL PROTEIN 7.4 g/dL (6.4-8.2)
[2019-10-26 07:00] VITALS: BP 128/85
[2019-10-26] MEDS: risperiDONE 1 MG TABLET. PO SCH ×2 (07:42→20:36)
[2019-10-26] MEDS: DOCUSATE SODIUM 100 MG CAPSULE. PO SCH ×2 (07:42→20:36)
[2019-10-26] MEDS: methylPREDNISolone SOD SUCC PF 40 MG/ML VIAL. IV SCH (07:42)
[2019-10-26] MEDS: FAMOTIDINE 20 MG/2 ML VIAL IVP SCH ×2 (07:42→20:42)
[2019-10-26] MEDS: ENOXAPARIN 40 MG/0.4 ML SYRINGE. SQ SCH (09:03)
[2019-10-26] MEDS: DOXYCYCLINE HYCLATE 100 MG in IV DEXTROSE 5% 100ML 100 ML IV SCH ×2 (09:03→20:38)
--- NOTE | 2019-10-26 09:15 | PDOC ---
PULMONARY PROGRESS NOTES Subjective Patient continues to be confused Remains on room air Vitals Vital Signs Date Time Temp Pulse Resp B/P (MAP) Pulse Ox O2 Delivery O2 Flow Rate FiO2 10/26/19 07:00 98.2 60 16 128/85 (99) 100 Room Air 98.2 ROS: No Nausea, No Chest Pain, No Abdominal Pain, No Increase Cough General: Alert, No acute distress, Confused Lungs: Clear Cardiovascular: S1, S2 Abdomen: Soft, Non-tender Neuro Exam: Alert Extremities: No Edema Skin: Warm Labs Laboratory Tests Test 10/24/19 12:00 10/24/19 18:23 10/24/19 22:05 10/25/19 05:00 Glucose (Fingerstick) 116 mg/dL (70-99) 124 mg/dL (70-99) 122 mg/dL (70-99) White Blood Count 16.7 x10^3/uL (4.0-11.0) Red Blood Count 4.19 x10^6/uL (3.50-5.40) Hemoglobin 11.8 g/dL (12.0-15.5) Hematocrit 35.4 % (36.0-47.0) Mean Corpuscular Volume 85 fL (79-100) Mean Corpuscular Hemoglobin 28 pg (25-35) Mean Corpuscular Hemoglobin Concent 33 g/dL (31-37) Red Cell Distribution Width 13.0 % (11.5-14.5) Platelet Count 321 x10^3/uL (140-400) Neutrophils (%) (Auto) 80 % (31-73) Lymphocytes (%) (Auto) 14 % (24-48) Monocytes (%) (Auto) 6 % (0-9) Eosinophils (%) (Auto) 0 % (0-3) Basophils (%) (Auto) 1 % (0-3) Neutrophils # (Auto) 13.3 x10^3/uL (1.8-7.7) Lymphocytes # (Auto) 2.3 x10^3/uL (1.0-4.8) Monocytes # (Auto) 0.9 x10^3/uL (0.0-1.1) Eosinophils # (Auto) 0.0 x10^3/uL (0.0-0.7) Basophils # (Auto) 0.2 x10^3/uL (0.0-0.2) Segmented Neutrophils % 82 % (35-66) Lymphocytes % 14 % (24-48) Monocytes % 4 % (0-10) Platelet Estimate Adequate (ADEQUATE) Sodium Level 144 mmol/L (136-145) Potassium Level 3.3 mmol/L (3.5-5.1) Chloride Level 108 mmol/L (98-107) Carbon Dioxide Level 21 mmol/L (21-32) Anion Gap 15 (6-14) Blood Urea Nitrogen 31 mg/dL (7-20) Creatinine 1.0 mg/dL (0.6-1.0) Estimated GFR (Cockcroft-Gault) 71.3 Glucose Level 130 mg/dL (70-99) Calcium Level 9.3 mg/dL (8.5-10.1) Magnesium Level 2.4 mg/dL (1.8-2.4) Test 10/25/19 05:36 10/25/19 07:06 10/25/19 11:26 10/25/19 11:27 Glucose (Fingerstick) 112 mg/dL (70-99) 111 mg/dL (70-99) 120 mg/dL (70-99) Lactic Acid Level 2.0 mmol/L (0.4-2.0) Test 10/25/19 13:30 10/25/19 14:00 10/25/19 17:57 10/26/19 00:01 Coronavirus (COVID-19)(PCR) Not detected (NOT DETECT.) Urine Collection Type Unknown Urine Color Yellow Urine Clarity Clear Urine pH 7.0 (<5.0-8.0) Urine Specific [place] 1.020 (1.000-1.030) Urine Protein Negative mg/dL (NEG-TRACE) Urine Glucose (UA) Negative mg/dL (NEG) Urine Ketones (Stick) Negative mg/dL (NEG) Urine Blood Negative (NEG) Urine Nitrite Negative (NEG) Urine Bilirubin Negative (NEG) Urine Urobilinogen Dipstick 1.0 mg/dL (0.2 mg/dL) Urine Leukocyte Esterase Negative (NEG) Urine RBC 1-2 /HPF (0-2) Urine WBC 1-4 /HPF (0-4) Urine Bacteria 0 /HPF (0-FEW) Urine Mucus Marked /LPF Glucose (Fingerstick) 95 mg/dL (70-99) 169 mg/dL (70-99) Test 10/26/19 04:45 10/26/19 06:38 White Blood Count 14.8 x10^3/uL (4.0-11.0) Red Blood Count 4.23 x10^6/uL (3.50-5.40) Hemoglobin 11.8 g/dL (12.0-15.5) Hematocrit 35.6 % (36.0-47.0) Mean Corpuscular Volume 84 fL (79-100) Mean Corpuscular Hemoglobin 28 pg (25-35) Mean Corpuscular Hemoglobin Concent 33 g/dL (31-37) Red Cell Distribution Width 13.0 % (11.5-14.5) Platelet Count 329 x10^3/uL (140-400) Neutrophils (%) (Auto) 78 % (31-73) Lymphocytes (%) (Auto) 17 % (24-48) Monocytes (%) (Auto) 5 % (0-9) Eosinophils (%) (Auto) 0 % (0-3) Basophils (%) (Auto) 1 % (0-3) Neutrophils # (Auto) 11.6 x10^3/uL (1.8-7.7) Lymphocytes # (Auto) 2.5 x10^3/uL (1.0-4.8) Monocytes # (Auto) 0.7 x10^3/uL (0.0-1.1) Eosinophils # (Auto) 0.0 x10^3/uL (0.0-0.7) Basophils # (Auto) 0.1 x10^3/uL (0.0-0.2) Sodium Level 141 mmol/L (136-145) Potassium Level 3.3 mmol/L (3.5-5.1) Chloride Level 107 mmol/L (98-107) Carbon Dioxide Level 19 mmol/L (21-32) Anion Gap 15 (6-14) Blood Urea Nitrogen 18 mg/dL (7-20) Creatinine 0.7 mg/dL (0.6-1.0) Estimated GFR (Cockcroft-Gault) 107.6 BUN/Creatinine Ratio 26 (6-20) Glucose Level 109 mg/dL (70-99) Calcium Level 8.9 mg/dL (8.5-10.1) Total Bilirubin 0.6 mg/dL (0.2-1.0) Aspartate Amino Transf (AST/SGOT) 93 U/L (15-37) Alanine Aminotransferase (ALT/SGPT) 287 U/L (14-59) Alkaline Phosphatase 73 U/L (46-116) Total Protein 7.4 g/dL (6.4-8.2) Albumin 3.2 g/dL (3.4-5.0) Albumin/Globulin Ratio 0.8 (1.0-1.7) Glucose (Fingerstick) 109 mg/dL (70-99) Laboratory Tests Test 10/25/19 11:26 10/25/19 11:27 10/25/19 13:30 10/25/19 14:00 Glucose (Fingerstick) 120 mg/dL (70-99) Lactic Acid Level 2.0 mmol/L (0.4-2.0) Coronavirus (COVID-19)(PCR) Not detected (NOT DETECT.) Urine Collection Type Unknown Urine Color Yellow Urine Clarity Clear Urine pH 7.0 (<5.0-8.0) Urine Specific [place] 1.020 (1.000-1.030) Urine Protein Negative mg/dL (NEG-TRACE) Urine Glucose (UA) Negative mg/dL (NEG) Urine Ketones (Stick) Negative mg/dL (NEG) Urine Blood Negative (NEG) Urine Nitrite Negative (NEG) Urine Bilirubin Negative (NEG) Urine Urobilinogen Dipstick 1.0 mg/dL (0.2 mg/dL) Urine Leukocyte Esterase Negative (NEG) Urine RBC 1-2 /HPF (0-2) Urine WBC 1-4 /HPF (0-4) Urine Bacteria 0 /HPF (0-FEW) Urine Mucus Marked /LPF Test 10/25/19 17:57 10/26/19 00:01 10/26/19 04:45 10/26/19 06:38 Glucose (Fingerstick) 95 mg/dL (70-99) 169 mg/dL (70-99) 109 mg/dL (70-99) White Blood Count 14.8 x10^3/uL (4.0-11.0) Red Blood Count 4.23 x10^6/uL (3.50-5.40) Hemoglobin 11.8 g/dL (12.0-15.5) Hematocrit 35.6 % (36.0-47.0) Mean Corpuscular Volume 84 fL (79-100) Mean Corpuscular Hemoglobin 28 pg (25-35) Mean Corpuscular Hemoglobin Concent 33 g/dL (31-37) Red Cell Distribution Width 13.0 % (11.5-14.5) Platelet Count 329 x10^3/uL (140-400) Neutrophils (%) (Auto) 78 % (31-73) Lymphocytes (%) (Auto) 17 % (24-48) Monocytes (%) (Auto) 5 % (0-9) Eosinophils (%) (Auto) 0 % (0-3) Basophils (%) (Auto) 1 % (0-3) Neutrophils # (Auto) 11.6 x10^3/uL (1.8-7.7) Lymphocytes # (Auto) 2.5 x10^3/uL (1.0-4.8) Monocytes # (Auto) 0.7 x10^3/uL (0.0-1.1) Eosinophils # (Auto) 0.0 x10^3/uL (0.0-0.7) Basophils # (Auto) 0.1 x10^3/uL (0.0-0.2) Sodium Level 141 mmol/L (136-145) Potassium Level 3.3 mmol/L (3.5-5.1) Chloride Level 107 mmol/L (98-107) Carbon Dioxide Level 19 mmol/L (21-32) Anion Gap 15 (6-14) Blood Urea Nitrogen 18 mg/dL (7-20) Creatinine 0.7 mg/dL (0.6-1.0) Estimated GFR (Cockcroft-Gault) 107.6 BUN/Creatinine Ratio 26 (6-20) Glucose Level 109 mg/dL (70-99) Calcium Level 8.9 mg/dL (8.5-10.1) Total Bilirubin 0.6 mg/dL (0.2-1.0) Aspartate Amino Transf (AST/SGOT) 93 U/L (15-37) Alanine Aminotransferase (ALT/SGPT) 287 U/L (14-59) Alkaline Phosphatase 73 U/L (46-116) Total Protein 7.4 g/dL (6.4-8.2) Albumin 3.2 g/dL (3.4-5.0) Albumin/Globulin Ratio 0.8 (1.0-1.7) Medications Active Scripts Medications Dose Route/Sig Max Daily Dose Days Date Category Dose Instructions Naproxen 500 Mg Tablet 1 Tab PO BID 10 10/18/17 Rx Meloxicam 7.5 Mg Tablet 7.5 Mg PO DAILY 01/14/16 Reported Colace (Docusate Sodium) 100 Mg Capsule 100 Mg PO BID 06/30/15 Rx Oxycodone-Acetaminophen 10-325 (Oxycodone Hcl/Acetaminophen) 1 Each Tablet 1 Tab PO PRN Q4HRS PRN 06/30/15 Rx Osphena (Ospemifene) 60 Mg Tablet 60 Mg PO DAILY 06/22/15 Reported Soren-Mag Tablet Chewable (Calcium Carb/Magnesium Cmb #10) 1 Each Tab.chew 1 Each PO 12/24/14 Reported Nasacort (Triamcinolone Acetonide) 10.8 Ml [place] Unknown Dose NS DAILY 12/24/14 Reported [Oxycodone Hcl/Acetaminophen] 1 TAB Tablet 2 Tab PO PRN Q4HRS PRN 11/28/14 Rx [Oxycodone Hcl/Acetaminophen] 1 TAB Tablet 1 Tab PO PRN Q4HRS PRN 11/28/14 Rx Colace (Docusate Sodium) 100 Mg Capsule 100 Mg PO BID 11/28/14 Rx Cyclobenzaprine Hcl 10 Mg Tablet 10 Mg PO PRN TID PRN 11/19/14 Reported LAST DOSE GIVEN: DATE:11-28-14 TIME:0300 NEXT DOSE DUE: DATE:11-28-14 TIME:9:00 p.m. Stool Softener Tablet (Sennosides/Docusate Sodium) 1 Each Tablet 1 Each PO DAILY 11/19/14 Reported LAST DOSE GIVEN: DATE:11-28-14 TIME:9:00 a.m. NEXT DOSE DUE: DATE:11-29-14 TIME:9:00 a.m. Lisinopril 10 Mg Tablet 10 Mg PO DAILY 11/19/14 Reported LAST DOSE GIVEN: DATE:11-28-14 TIME:9:00 a.m. NEXT DOSE DUE: DATE:11-29-14 TIME:9:[address] reviewed mild alveolitis, atelectasis of the right lower lobe CT HEAD IMPRESSION: No acute intracranial abnormality. Impression . IMPRESSION: 1. Acute respiratory failure secondary to angioedema.-resolved 2. Angioedema secondary to ARYA inhibitor-resolved 3. Abnormal chest x-ray with right hilar prominence, will need ct chest post extubation-- reviewed 4. Hypertension. 5. electrolyte imbalance, hypo k 6. Tracheobronchitis, started on Abx 10/21 7. Abnormal cxr 10/22, small effusions 8. Encephalopathy, suspect metabolic, possibly toxic-- ongoing 1. No hilar mass or adenopathy. 2. Patchy groundglass attenuation to the lungs. Correlate clinically for any evidence of atypical pneumonia. 3. Small left pleural effusion and right pleural thickening that could reflect sequela of old hemorrhage. Attention on follow-up could be beneficial. Plan . Continue supplemental oxygen if needed remains on room air --extubated 10/23/19 cont. IV steroids w/taper Cont. ABX Follow psych recs Hold/D/C sedative medications Continue PPN for nutritional Support D/W ELIDIA DIEGO MD Oct 26, 2019 09:15
--- NOTE | 2019-10-26 10:42 | PDOC ---
PROGRESS NOTES Subjective Subjective less confused today,ox3 Objective Objective Vital Signs Date Time Temp Pulse Resp B/P (MAP) Pulse Ox O2 Delivery O2 Flow Rate FiO2 10/26/19 08:00 Room Air 10/26/19 07:00 98.2 60 16 128/85 (99) 100 98.2 Intake and Output 10/26/19 07:00 Intake Total 560 ml Balance 560 ml Intake Oral 560 ml # Voids 4 Physical Exam Abdomen: Normal bowel sounds Heart: Regular rate, Normal S1 Extremities: No clubbing General: Other HEENT: Atraumatic Lungs: Other MUSCULOSKELETAL: No swelling, Other Skin: No breakdown Diagnosis Problem List Problems Medical Problems: (1) ARYA inhibitor-aggravated angioedema Status: Acute (2) Airway compromise Status: Acute (3) Angio-edema Status: Acute Assessment Assessment IMP: Psychosis icu psychosis vs infection 1. Acute respiratory failure due to acute angioedema likely due to lisinopril. 2. Acute gout, left ankle 3. Hypertension. 4. Acute angioedema. 5.Fever PLAN:clinically improving on resperidone, psyche consult appreciated wbc 14 down ,fever down cxr today. deescalate steroids and antibiotics home in 1-2 days pt and speech consult Plan Plan of Care Problems Medical Problems: (1) ARYA inhibitor-aggravated angioedema Status: Acute (2) Airway compromise Status: Acute (3) Angio-edema Status: Acute Comment Review of Relevant I have reviewed the following items sinan (where applicable) has been applied. Labs Laboratory Tests Test 10/25/19 11:26 10/25/19 11:27 10/25/19 13:30 10/25/19 14:00 Glucose (Fingerstick) 120 mg/dL (70-99) Lactic Acid Level 2.0 mmol/L (0.4-2.0) Coronavirus (COVID-19)(PCR) Not detected (NOT DETECT.) Urine Collection Type Unknown Urine Color Yellow Urine Clarity Clear Urine pH 7.0 (<5.0-8.0) Urine Specific [place] Pool 1.020 (1.000-1.030) Urine Protein Negative mg/dL (NEG-TRACE) Urine Glucose (UA) Negative mg/dL (NEG) Urine Ketones (Stick) Negative mg/dL (NEG) Urine Blood Negative (NEG) Urine Nitrite Negative (NEG) Urine Bilirubin Negative (NEG) Urine Urobilinogen Dipstick 1.0 mg/dL (0.2 mg/dL) Urine Leukocyte Esterase Negative (NEG) Urine RBC 1-2 /HPF (0-2) Urine WBC 1-4 /HPF (0-4) Urine Bacteria 0 /HPF (0-FEW) Urine Mucus Marked /LPF Test 10/25/19 17:57 10/26/19 00:01 10/26/19 04:45 10/26/19 06:38 Glucose (Fingerstick) 95 mg/dL (70-99) 169 mg/dL (70-99) 109 mg/dL (70-99) White Blood Count 14.8 x10^3/uL (4.0-11.0) Red Blood Count 4.23 x10^6/uL (3.50-5.40) Hemoglobin 11.8 g/dL (12.0-15.5) Hematocrit 35.6 % (36.0-47.0) Mean Corpuscular Volume 84 fL (79-100) Mean Corpuscular Hemoglobin 28 pg (25-35) Mean Corpuscular Hemoglobin Concent 33 g/dL (31-37) Red Cell Distribution Width 13.0 % (11.5-14.5) Platelet Count 329 x10^3/uL (140-400) Neutrophils (%) (Auto) 78 % (31-73) Lymphocytes (%) (Auto) 17 % (24-48) Monocytes (%) (Auto) 5 % (0-9) Eosinophils (%) (Auto) 0 % (0-3) Basophils (%) (Auto) 1 % (0-3) Neutrophils # (Auto) 11.6 x10^3/uL (1.8-7.7) Lymphocytes # (Auto) 2.5 x10^3/uL (1.0-4.8) Monocytes # (Auto) 0.7 x10^3/uL (0.0-1.1) Eosinophils # (Auto) 0.0 x10^3/uL (0.0-0.7) Basophils # (Auto) 0.1 x10^3/uL (0.0-0.2) Sodium Level 141 mmol/L (136-145) Potassium Level 3.3 mmol/L (3.5-5.1) Chloride Level 107 mmol/L (98-107) Carbon Dioxide Level 19 mmol/L (21-32) Anion Gap 15 (6-14) Blood Urea Nitrogen 18 mg/dL (7-20) Creatinine 0.7 mg/dL (0.6-1.0) Estimated GFR (Cockcroft-Gault) 107.6 BUN/Creatinine Ratio 26 (6-20) Glucose Level 109 mg/dL (70-99) Calcium Level 8.9 mg/dL (8.5-10.1) Total Bilirubin 0.6 mg/dL (0.2-1.0) Aspartate Amino Transf (AST/SGOT) 93 U/L (15-37) Alanine Aminotransferase (ALT/SGPT) 287 U/L (14-59) Alkaline Phosphatase 73 U/L (46-116) Total Protein 7.4 g/dL (6.4-8.2) Albumin 3.2 g/dL (3.4-5.0) Albumin/Globulin Ratio 0.8 (1.0-1.7) Microbiology 10/23/19 Gram Stain Evaluation - Final, Resulted 10/23/19 Respiratory Culture - Preliminary, Resulted Medications Current Medications Doxycycline Hyclate 100 mg/ Dextrose 100 ml @ 50 mls/hr Q12HR IV Last administered on 10/26/19at 09:03; Start 10/25/19 at 14:00 Linezolid/Dextrose 300 ml @ 300 mls/hr Q12HR IV Last administered on 10/26/19at 07:42; Start 10/25/19 at 14:00 Risperidone (RisperDAL) 1 mg BID PO Last administered on 10/26/19at 07:42; Start 10/25/19 at 21:00 Vitals/I & O Vital Sign - Last 24 Hours 10/25/19 10/25/19 10/25/19 10/25/19 11:39 15:35 19:45 20:00 Temp 98.6 98.7 99.9 98.6 98.7 99.9 Pulse 88 83 85 Resp 20 17 B/P (MAP) 136/82 (100) 155/88 (110) 145/85 (105) Pulse Ox 96 99 O2 Delivery Room Air Room Air Room Air Room Air 10/25/19 10/26/19 10/26/19 10/26/19 23:00 03:35 07:00 08:00 Temp 100.0 98.7 98.2 100.0 98.7 98.2 Pulse 76 71 60 Resp 16 18 16 B/P (MAP) 144/87 (106) 133/79 (97) 128/85 (99) Pulse Ox 96 100 100 O2 Delivery Room Air Room Air Room Air Room Air Intake and Output 10/25/19 10/25/19 10/26/19 15:00 23:00 07:00 Intake Total 240 ml 320 ml Balance 240 ml 320 ml Justicifation of Admission Dx: Justifications for Admission: Justification of Admission Dx: Yes Respiratory Failure: Airway Obstruction CIRA MARCH MD Oct 26, 2019 10:42
[2019-10-26] MEDS ORDERED: POTASSIUM CHLORIDE 20 MEQ TABLET.ER. PO ONE (10:45)
--- NOTE | 2019-10-26 10:50 | PDOC ---
Infectious Disease Note Subjective: Subjective Patient seen and examined ID consult dictated Vital Signs: Vital Signs Vital Signs Date Time Temp Pulse Resp B/P (MAP) Pulse Ox O2 Delivery O2 Flow Rate FiO2 10/26/19 08:00 Room Air 10/26/19 07:00 98.2 60 16 128/85 (99) 100 98.2 Medications: Inpatient Meds: Current Medications Medications (Trade) Dose Ordered Sig/Oneyda Start Time Stop Time Status Last Admin Dose Admin Acetaminophen (Tylenol) 650 mg PRN Q6HRS PRN 10/19/19 10:45 10/26/19 03:27 650 MG Amino Acids/ Glycerin/ Electrolytes 1,000 ml @ 80 mls/hr [id number] 10/24/19 22:30 10/25/19 23:59 80 MLS/HR Chlorhexidine Gluconate (Peridex) 15 ml BID 10/19/19 09:00 10/24/19 16:32 DC 10/24/19 08:35 15 ML Diphenhydramine HCl (Benadryl) 25 mg PRN Q6HRS PRN 10/19/19 10:45 10/25/19 14:09 DC 10/23/19 03:53 25 MG Docusate Sodium (Colace) 100 mg BID 10/19/19 21:00 10/26/19 07:42 100 MG Doxycycline Hyclate 100 mg/ Dextrose 100 ml @ 50 mls/hr Q12HR 10/25/19 14:00 10/26/19 09:03 50 MLS/HR Enoxaparin Sodium (Lovenox 40mg Syringe) 40 mg Q24H 10/19/19 10:00 10/26/19 09:03 40 MG Etomidate (Amidate) 20 mg 1X ONCE 10/19/19 08:00 10/19/19 08:01 DC 10/19/19 06:55 20 MG Famotidine (Pepcid Vial) 20 mg BID 10/19/19 10:00 10/26/19 07:42 20 MG Fentanyl Citrate 30 ml @ 2.5 mls/hr CONT PRN 10/19/19 10:30 10/24/19 16:32 DC 10/23/19 04:25 2.5 MLS/HR Fentanyl Citrate (Fentanyl 2ml Vial) 50 mcg PRN Q1HR PRN 10/19/19 07:00 10/25/19 14:09 DC 10/19/19 09:28 50 MCG Furosemide (Lasix) 40 mg 1X ONCE 10/23/19 09:45 10/23/19 09:46 DC 10/23/19 09:42 40 MG Insulin Human Lispro (HumaLOG) 0-8 UNITS Q6HRS 10/21/19 12:00 10/22/19 17:22 2 UNITS Levofloxacin/ Dextrose 150 ml @ 100 mls/hr Q24H 10/22/19 10:00 10/25/19 13:52 DC 10/25/19 10:53 100 MLS/HR Levofloxacin/ Dextrose (Levaquin Per Pharmacy) 1 each PRN DAILY PRN 10/22/19 09:15 10/25/19 14:58 DC Linezolid/Dextrose 300 ml @ 300 mls/hr Q12HR 10/25/19 14:00 10/26/19 07:42 300 MLS/HR Methylprednisolone Sodium Succinate (SOLU-Medrol 40MG VIAL) 20 mg BID 10/25/19 09:00 10/18/20 09:00 10/26/19 07:42 20 MG Methylprednisolone Sodium Succinate (SOLU-Medrol 125MG VIAL) 125 mg 1X ONCE 10/19/19 07:00 10/19/19 07:01 DC 10/19/19 06:37 125 MG Midazolam HCl (Versed) 5 mg 1X ONCE 10/19/19 08:00 10/19/19 08:01 DC 10/19/19 08:00 5 MG Potassium Chloride 20 meq/ Sodium Chloride 1,010 ml @ 75 mls/hr [id number] 10/20/19 10:00 UNV Potassium Chloride/Sodium Chloride 1,000 ml @ 75 mls/hr [id number] 10/20/19 10:15 10/25/19 15:38 DC 10/25/19 10:55 75 MLS/HR Potassium Chloride/Water 100 ml @ 100 mls/hr Q1H 10/25/19 10:00 10/25/19 11:59 DC 10/25/19 13:02 100 MLS/HR Potassium Chloride (Klor-Con) 20 meq 1X ONCE 10/20/19 10:45 10/20/19 10:48 DC 10/20/19 12:47 20 MEQ Propofol 50 ml @ As Directed STK-MED ONCE 10/19/19 07:34 10/19/19 07:34 DC Risperidone (RisperDAL) 1 mg BID 10/25/19 21:00 10/26/19 07:42 1 MG Sodium Chloride 1,000 ml @ 125 mls/hr Q8H 10/19/19 07:15 10/20/19 07:14 DC 10/19/19 21:48 125 MLS/HR Succinylcholine Chloride (Anectine) 100 mg 1X ONCE 10/19/19 08:00 10/19/19 08:01 DC 10/19/19 06:55 100 MG Labs: Lab Laboratory Tests Test 10/25/19 11:26 10/25/19 11:27 10/25/19 13:30 10/25/19 14:00 Glucose (Fingerstick) 120 mg/dL (70-99) Lactic Acid Level 2.0 mmol/L (0.4-2.0) Coronavirus (COVID-19)(PCR) Not detected (NOT DETECT.) Urine Collection Type Unknown Urine Color Yellow Urine Clarity Clear Urine pH 7.0 (<5.0-8.0) Urine Specific [place] 1.020 (1.000-1.030) Urine Protein Negative mg/dL (NEG-TRACE) Urine Glucose (UA) Negative mg/dL (NEG) Urine Ketones (Stick) Negative mg/dL (NEG) Urine Blood Negative (NEG) Urine Nitrite Negative (NEG) Urine Bilirubin Negative (NEG) Urine Urobilinogen Dipstick 1.0 mg/dL (0.2 mg/dL) Urine Leukocyte Esterase Negative (NEG) Urine RBC 1-2 /HPF (0-2) Urine WBC 1-4 /HPF (0-4) Urine Bacteria 0 /HPF (0-FEW) Urine Mucus Marked /LPF Test 10/25/19 17:57 10/26/19 00:01 10/26/19 04:45 10/26/19 06:38 Glucose (Fingerstick) 95 mg/dL (70-99) 169 mg/dL (70-99) 109 mg/dL (70-99) White Blood Count 14.8 x10^3/uL (4.0-11.0) Red Blood Count 4.23 x10^6/uL (3.50-5.40) Hemoglobin 11.8 g/dL (12.0-15.5) Hematocrit 35.6 % (36.0-47.0) Mean Corpuscular Volume 84 fL (79-100) Mean Corpuscular Hemoglobin 28 pg (25-35) Mean Corpuscular Hemoglobin Concent 33 g/dL (31-37) Red Cell Distribution Width 13.0 % (11.5-14.5) Platelet Count 329 x10^3/uL (140-400) Neutrophils (%) (Auto) 78 % (31-73) Lymphocytes (%) (Auto) 17 % (24-48) Monocytes (%) (Auto) 5 % (0-9) Eosinophils (%) (Auto) 0 % (0-3) Basophils (%) (Auto) 1 % (0-3) Neutrophils # (Auto) 11.6 x10^3/uL (1.8-7.7) Lymphocytes # (Auto) 2.5 x10^3/uL (1.0-4.8) Monocytes # (Auto) 0.7 x10^3/uL (0.0-1.1) Eosinophils # (Auto) 0.0 x10^3/uL (0.0-0.7) Basophils # (Auto) 0.1 x10^3/uL (0.0-0.2) Sodium Level 141 mmol/L (136-145) Potassium Level 3.3 mmol/L (3.5-5.1) Chloride Level 107 mmol/L (98-107) Carbon Dioxide Level 19 mmol/L (21-32) Anion Gap 15 (6-14) Blood Urea Nitrogen 18 mg/dL (7-20) Creatinine 0.7 mg/dL (0.6-1.0) Estimated GFR (Cockcroft-Gault) 107.6 BUN/Creatinine Ratio 26 (6-20) Glucose Level 109 mg/dL (70-99) Calcium Level 8.9 mg/dL (8.5-10.1) Total Bilirubin 0.6 mg/dL (0.2-1.0) Aspartate Amino Transf (AST/SGOT) 93 U/L (15-37) Alanine Aminotransferase (ALT/SGPT) 287 U/L (14-59) Alkaline Phosphatase 73 U/L (46-116) Total Protein 7.4 g/dL (6.4-8.2) Albumin 3.2 g/dL (3.4-5.0) Albumin/Globulin Ratio 0.8 (1.0-1.7) Objective: Assessment: Fever improving Leukocytosis, steroid Psychosis versus delirium Acute respiratory failure from acute angioedema Gout Sputum culture positive for staph aureus Hypertension Penicillin allergy unknown reaction Status post Levaquin Plan: Plan of Care Continue Zyvox and Doxy Follow-up labs and culture Continue aspiration precaution Thank you [id number] FRANSISCO ABARCA MD Oct 26, 2019 10:50
[2019-10-26 11:14] VITALS: BP 115/81
--- NOTE | 2019-10-26 11:23 | RAD ---
EXAM: CHEST PA LATERAL INDICATION: Reason: pneumonia f/u / Spl. Instructions: / History: . TECHNIQUE: PA and lateral views COMPARISON: 10/23/2019 chest x-ray FINDINGS: Patient has been extubated and enteric tube has been removed. The heart size is normal. The great vessels appear unremarkable. There is no hilar or mediastinal mass. Lungs show marked interval improvement in aeration and improvement in volumes with minimal residual opacities in the lung bases There is no pleural effusion or pneumothorax. There are no significant osseous abnormalities. IMPRESSION: Marked interval improvement in aeration of the lungs with minimal residual bibasilar opacities that could be atelectatic in etiology. Electronically signed by: Dex Valderrama MD (10/26/2019 11:20 AM) [id number]
[2019-10-26] MEDS: AMINO AC 3%/ELECTROLYTE/GLYCER 1,000 ML IV SCH (12:00)
--- NOTE | 2019-10-26 13:30 | NUR ---
Patient COVID negative. Patient transferred to room 440. Repost given to Brent ZHAO.
[2019-10-26 15:19] VITALS: BP 125/73
--- NOTE | 2019-10-26 17:10 | CONS ---
DATE OF CONSULTATION: 10/26/2019 REFERRING PHYSICIAN: Talisha Segura MD REASON FOR CONSULTATION: Worsening leukocytosis and fever. HISTORY OF PRESENT ILLNESS: A 49-year-old female with history of hypertension, on lisinopril for a couple of years, presented to the ER on 10/19/2019 with acute swelling of the tongue. The patient is confused at this time. History obtained from the chart and medical staff. The patient had been on lisinopril for a long time. She was started on colchicine, meloxicam and prednisone the day prior to admission for acute gout in Dr. Segura's office. On presentation to the ER, she had an extremely large tongue and had difficulty breathing, so was intubated and admitted to ICU. White count on admission was 7.0. Creatinine was 1.0. The patient was started on Solu-Medrol. Pulmonary was consulted. She was also started on Benadryl. The patient was extubated on 10/23/2019. The patient started having hallucinations the night she was transferred with confusion. Psychiatry was consulted. The patient remained on Levaquin, which was discontinued yesterday as her white count went up to 16,000. CT head was negative. CT chest showed ground glass opacity. Sputum culture from 10/23/2019 showed Staphylococcus aureus. WILFRIDO is pending at this time. Levaquin was discontinued. She was started on Zyvox and doxycycline. ID consult has been requested for antibiotic management. This morning, the patient feels a little better. She had fever of 100.8 last night, afebrile this morning, remains on room air. COVID-19 is negative. PAST MEDICAL HISTORY: Hypertension. PAST SURGICAL HISTORY: History of hysterectomy for uterine fibroid, status post lumbar arcadio-laminectomy and decompression. ALLERGIES: PENICILLIN, LISINOPRIL. THE PATIENT WAS UNABLE TO GIVE DETAILS FOR ALLERGIES TO PENICILLIN. CURRENT MEDICATIONS: Zyvox, doxycycline 10/25/2019. Previously she was on Levaquin. Other medications reviewed in medication list, also on methylprednisolone. SOCIAL HISTORY: Former smoker per chart. No alcoholism. Denies drug use. Lives with significant other. Currently works from home. FAMILY HISTORY: As per HPI. REVIEW OF SYSTEMS: Limited, but negative for fevers, chills, nausea, vomiting, diarrhea, abdominal pain. Does have some sore throat. Cough is improving. No urinary symptoms. PHYSICAL EXAMINATION: VITAL SIGNS: Temperature 98.2, T-max 100.8, pulse 60, respirations 16, blood pressure 128/85, oxygen saturation 100% on room air. GENERAL: Alert, awake, somewhat confused female, lying in bed comfortably, in no acute distress. HEENT: Normocephalic, atraumatic, anicteric. NECK: Supple. No JVD. LUNGS: Clear bilaterally. HEART: S1, S2. No gallops or murmurs. ABDOMEN: Soft, nontender, nondistended. No rebound, no guarding. EXTREMITIES: No edema, no cyanosis. NEUROLOGIC: Alert, awake. DERMATOLOGIC: Warm and dry. No generalized rash. PSYCHIATRIC: Cooperative. LABORATORY DATA: WBC 14.8, hemoglobin 11.8, hematocrit 35.6, platelets 329. CMP: Sodium 141, potassium 3.3, chloride 107, bicarbonate 19, BUN 18, creatinine 0.7, glucose 109, calcium 8.9, lactic acid 2.0, AST 93, ALT 287. Total protein 7.4. COVID-19 nondetected. UA negative. Micro, sputum Gram stain Staphylococcus aureus. Blood culture pending. Respiratory cultures as above. Urine culture pending. IMPRESSION: 1. Fever, improving. 2. Leukocytosis, improving on steroids. 3. Hallucination. 4. Acute respiratory failure due to acute angioedema. Now extubated Sputum culture positive for staph aureus 5. History of acute gout, left ankle. 6. Hypertension. 7. COVID-19 negative. 8. Hypertension. RECOMMENDATIONS: 1. Continue Zyvox and doxycycline. 2. Status post Levaquin. 3. Follow up labs and cultures. 4. Continue supportive care. 5. Maintain aspiration precaution. Discussed with nursing staff. Thank you, Dr. Segura, for consulting Infectious Disease to participate in this patient's care. Please do not hesitate to contact me if you have any questions. FRANSISCO ABARCA MD DR: BILLY/anita JOB#: [id number] / [id number] MTDD
[2019-10-26 19:00] VITALS: BP 140/91
[2019-10-26] MEDS: LACTOBACILLUS RHAMNOSUS GG 1 CAPSULE. PO SCH (20:36)
[2019-10-26 23:00] VITALS: BP 97/63
[2019-10-27] MEDS: ACETAMINOPHEN 325 MG TABLET. PO PRN ×2 (01:13→08:08)
[2019-10-27 03:00] VITALS: BP 107/72
[2019-10-27 05:05] LABS: BASO # 0.1 x10^3/uL (0.0-0.2); BASO % 1 % (0-3); EOS # 0.2 x10^3/uL (0.0-0.7); EOS % 1 % (0-3); HEMATOCRIT 34.5 % (36.0-47.0); HEMOGLOBIN 11.4 g/dL (12.0-15.5); LYMPH # 4.1 x10^3/uL (1.0-4.8); LYMPH % 28 % (24-48); MEAN CORPUSCULAR HEMOGLOBIN 28 pg (25-35); MEAN CORPUSCULAR HGB CONC 33 g/dL (31-37); MEAN CORPUSCULAR VOLUME 84 fL (79-100); MONO % 7 % (0-9); NEUT # 9.1 x10^3/uL (1.8-7.7); NEUT % 63 % (31-73); PLATELET COUNT 320 x10^3/uL (140-400); RED BLOOD COUNT 4.09 x10^6/uL (3.50-5.40); RED CELL DISTRIBUTION WIDTH 12.8 % (11.5-14.5); WHITE BLOOD COUNT 14.5 x10^3/uL (4.0-11.0)
[2019-10-27 05:18] LABS: CALCIUM 8.8 mg/dL (8.5-10.1); CREATININE 0.8 mg/dL (0.6-1.0); GFR 92.2
[2019-10-27 05:24] LABS: ALBUMIN 3.3 g/dL (3.4-5.0); DIRECT BILIRUBIN 0.2 mg/dL (0.0-0.2); MAGNESIUM 1.9 mg/dL (1.8-2.4); TOTAL BILIRUBIN 0.5 mg/dL (0.2-1.0); TOTAL PROTEIN 6.8 g/dL (6.4-8.2)
[2019-10-27] MEDS: INSULIN LISPRO 300 UNITS/3 ML VIAL. SQ SCH ×4 (06:00→16:17)
[2019-10-27 07:00] VITALS: BP 120/79
[2019-10-27] MEDS: DOCUSATE SODIUM 100 MG CAPSULE. PO SCH ×2 (08:08→20:42)
[2019-10-27] MEDS: risperiDONE 1 MG TABLET. PO SCH ×2 (08:08→20:42)
[2019-10-27] MEDS: ENOXAPARIN 40 MG/0.4 ML SYRINGE. SQ SCH ×2 (08:08→11:03)
[2019-10-27] MEDS: LACTOBACILLUS RHAMNOSUS GG 1 CAPSULE. PO SCH ×2 (08:08→20:42)
[2019-10-27] MEDS: FAMOTIDINE 20 MG/2 ML VIAL IVP SCH (08:08)
[2019-10-27] MEDS: DOXYCYCLINE HYCLATE 100 MG in IV DEXTROSE 5% 100ML 100 ML IV SCH (08:09)
--- NOTE | 2019-10-27 08:21 | PDOC ---
PULMONARY PROGRESS NOTES Subjective Mentation continue to improve Remains on room air, low grade fever overnight Denies cough or SOB Vitals Vital Signs Date Time Temp Pulse Resp B/P (MAP) Pulse Ox O2 Delivery O2 Flow Rate FiO2 10/27/19 07:00 99.0 79 16 120/79 (93) 98 Room Air 99.0 ROS: No Nausea, No Chest Pain, No Abdominal Pain, No Increase Cough General: Alert, No acute distress, Confused Lungs: Clear Cardiovascular: S1, S2 Abdomen: Soft, Non-tender Neuro Exam: Alert Extremities: No Edema Skin: Warm Labs Laboratory Tests Test 10/25/19 11:26 10/25/19 11:27 10/25/19 13:30 10/25/19 14:00 Glucose (Fingerstick) 120 mg/dL (70-99) Lactic Acid Level 2.0 mmol/L (0.4-2.0) Coronavirus (COVID-19)(PCR) Not detected (NOT DETECT.) Urine Collection Type Unknown Urine Color Yellow Urine Clarity Clear Urine pH 7.0 (<5.0-8.0) Urine Specific [place] 1.020 (1.000-1.030) Urine Protein Negative mg/dL (NEG-TRACE) Urine Glucose (UA) Negative mg/dL (NEG) Urine Ketones (Stick) Negative mg/dL (NEG) Urine Blood Negative (NEG) Urine Nitrite Negative (NEG) Urine Bilirubin Negative (NEG) Urine Urobilinogen Dipstick 1.0 mg/dL (0.2 mg/dL) Urine Leukocyte Esterase Negative (NEG) Urine RBC 1-2 /HPF (0-2) Urine WBC 1-4 /HPF (0-4) Urine Bacteria 0 /HPF (0-FEW) Urine Mucus Marked /LPF Test 10/25/19 17:57 10/26/19 00:01 10/26/19 04:45 10/26/19 06:38 Glucose (Fingerstick) 95 mg/dL (70-99) 169 mg/dL (70-99) 109 mg/dL (70-99) White Blood Count 14.8 x10^3/uL (4.0-11.0) Red Blood Count 4.23 x10^6/uL (3.50-5.40) Hemoglobin 11.8 g/dL (12.0-15.5) Hematocrit 35.6 % (36.0-47.0) Mean Corpuscular Volume 84 fL (79-100) Mean Corpuscular Hemoglobin 28 pg (25-35) Mean Corpuscular Hemoglobin Concent 33 g/dL (31-37) Red Cell Distribution Width 13.0 % (11.5-14.5) Platelet Count 329 x10^3/uL (140-400) Neutrophils (%) (Auto) 78 % (31-73) Lymphocytes (%) (Auto) 17 % (24-48) Monocytes (%) (Auto) 5 % (0-9) Eosinophils (%) (Auto) 0 % (0-3) Basophils (%) (Auto) 1 % (0-3) Neutrophils # (Auto) 11.6 x10^3/uL (1.8-7.7) Lymphocytes # (Auto) 2.5 x10^3/uL (1.0-4.8) Monocytes # (Auto) 0.7 x10^3/uL (0.0-1.1) Eosinophils # (Auto) 0.0 x10^3/uL (0.0-0.7) Basophils # (Auto) 0.1 x10^3/uL (0.0-0.2) Sodium Level 141 mmol/L (136-145) Potassium Level 3.3 mmol/L (3.5-5.1) Chloride Level 107 mmol/L (98-107) Carbon Dioxide Level 19 mmol/L (21-32) Anion Gap 15 (6-14) Blood Urea Nitrogen 18 mg/dL (7-20) Creatinine 0.7 mg/dL (0.6-1.0) Estimated GFR (Cockcroft-Gault) 107.6 BUN/Creatinine Ratio 26 (6-20) Glucose Level 109 mg/dL (70-99) Calcium Level 8.9 mg/dL (8.5-10.1) Total Bilirubin 0.6 mg/dL (0.2-1.0) Aspartate Amino Transf (AST/SGOT) 93 U/L (15-37) Alanine Aminotransferase (ALT/SGPT) 287 U/L (14-59) Alkaline Phosphatase 73 U/L (46-116) Total Protein 7.4 g/dL (6.4-8.2) Albumin 3.2 g/dL (3.4-5.0) Albumin/Globulin Ratio 0.8 (1.0-1.7) Test 10/26/19 11:45 10/26/19 16:06 10/26/19 21:04 10/27/19 04:35 Glucose (Fingerstick) 109 mg/dL (70-99) 104 mg/dL (70-99) 100 mg/dL (70-99) White Blood Count 14.5 x10^3/uL (4.0-11.0) Red Blood Count 4.09 x10^6/uL (3.50-5.40) Hemoglobin 11.4 g/dL (12.0-15.5) Hematocrit 34.5 % (36.0-47.0) Mean Corpuscular Volume 84 fL (79-100) Mean Corpuscular Hemoglobin 28 pg (25-35) Mean Corpuscular Hemoglobin Concent 33 g/dL (31-37) Red Cell Distribution Width 12.8 % (11.5-14.5) Platelet Count 320 x10^3/uL (140-400) Neutrophils (%) (Auto) 63 % (31-73) Lymphocytes (%) (Auto) 28 % (24-48) Monocytes (%) (Auto) 7 % (0-9) Eosinophils (%) (Auto) 1 % (0-3) Basophils (%) (Auto) 1 % (0-3) Neutrophils # (Auto) 9.1 x10^3/uL (1.8-7.7) Lymphocytes # (Auto) 4.1 x10^3/uL (1.0-4.8) Monocytes # (Auto) 1.0 x10^3/uL (0.0-1.1) Eosinophils # (Auto) 0.2 x10^3/uL (0.0-0.7) Basophils # (Auto) 0.1 x10^3/uL (0.0-0.2) Sodium Level 141 mmol/L (136-145) Potassium Level 3.0 mmol/L (3.5-5.1) Chloride Level 108 mmol/L (98-107) Carbon Dioxide Level 20 mmol/L (21-32) Anion Gap 13 (6-14) Blood Urea Nitrogen 16 mg/dL (7-20) Creatinine 0.8 mg/dL (0.6-1.0) Estimated GFR (Cockcroft-Gault) 92.2 Glucose Level 127 mg/dL (70-99) Calcium Level 8.8 mg/dL (8.5-10.1) Magnesium Level 1.9 mg/dL (1.8-2.4) Total Bilirubin 0.5 mg/dL (0.2-1.0) Direct Bilirubin 0.2 mg/dL (0.0-0.2) Aspartate Amino Transf (AST/SGOT) 53 U/L (15-37) Alanine Aminotransferase (ALT/SGPT) 219 U/L (14-59) Alkaline Phosphatase 68 U/L (46-116) Total Protein 6.8 g/dL (6.4-8.2) Albumin 3.3 g/dL (3.4-5.0) Test 10/27/19 06:06 10/27/19 07:06 Glucose (Fingerstick) 97 mg/dL (70-99) 98 mg/dL (70-99) Laboratory Tests Test 10/26/19 11:45 10/26/19 16:06 10/26/19 21:04 10/27/19 04:35 Glucose (Fingerstick) 109 mg/dL (70-99) 104 mg/dL (70-99) 100 mg/dL (70-99) White Blood Count 14.5 x10^3/uL (4.0-11.0) Red Blood Count 4.09 x10^6/uL (3.50-5.40) Hemoglobin 11.4 g/dL (12.0-15.5) Hematocrit 34.5 % (36.0-47.0) Mean Corpuscular Volume 84 fL (79-100) Mean Corpuscular Hemoglobin 28 pg (25-35) Mean Corpuscular Hemoglobin Concent 33 g/dL (31-37) Red Cell Distribution Width 12.8 % (11.5-14.5) Platelet Count 320 x10^3/uL (140-400) Neutrophils (%) (Auto) 63 % (31-73) Lymphocytes (%) (Auto) 28 % (24-48) Monocytes (%) (Auto) 7 % (0-9) Eosinophils (%) (Auto) 1 % (0-3) Basophils (%) (Auto) 1 % (0-3) Neutrophils # (Auto) 9.1 x10^3/uL (1.8-7.7) Lymphocytes # (Auto) 4.1 x10^3/uL (1.0-4.8) Monocytes # (Auto) 1.0 x10^3/uL (0.0-1.1) Eosinophils # (Auto) 0.2 x10^3/uL (0.0-0.7) Basophils # (Auto) 0.1 x10^3/uL (0.0-0.2) Sodium Level 141 mmol/L (136-145) Potassium Level 3.0 mmol/L (3.5-5.1) Chloride Level 108 mmol/L (98-107) Carbon Dioxide Level 20 mmol/L (21-32) Anion Gap 13 (6-14) Blood Urea Nitrogen 16 mg/dL (7-20) Creatinine 0.8 mg/dL (0.6-1.0) Estimated GFR (Cockcroft-Gault) 92.2 Glucose Level 127 mg/dL (70-99) Calcium Level 8.8 mg/dL (8.5-10.1) Magnesium Level 1.9 mg/dL (1.8-2.4) Total Bilirubin 0.5 mg/dL (0.2-1.0) Direct Bilirubin 0.2 mg/dL (0.0-0.2) Aspartate Amino Transf (AST/SGOT) 53 U/L (15-37) Alanine Aminotransferase (ALT/SGPT) 219 U/L (14-59) Alkaline Phosphatase 68 U/L (46-116) Total Protein 6.8 g/dL (6.4-8.2) Albumin 3.3 g/dL (3.4-5.0) Test 10/27/19 06:06 10/27/19 07:06 Glucose (Fingerstick) 97 mg/dL (70-99) 98 mg/dL (70-99) Medications Active Scripts Medications Dose Route/Sig Max Daily Dose Days Date Category Dose Instructions Naproxen 500 Mg Tablet 1 Tab PO BID 10 10/18/17 Rx Meloxicam 7.5 Mg Tablet 7.5 Mg PO DAILY 01/14/16 Reported Colace (Docusate Sodium) 100 Mg Capsule 100 Mg PO BID 06/30/15 Rx Oxycodone-Acetaminophen 10-325 (Oxycodone Hcl/Acetaminophen) 1 Each Tablet 1 Tab PO PRN Q4HRS PRN 06/30/15 Rx Osphena (Ospemifene) 60 Mg Tablet 60 Mg PO DAILY 06/22/15 Reported Soren-Mag Tablet Chewable (Calcium Carb/Magnesium Cmb #10) 1 Each Tab.chew 1 Each PO 12/24/14 Reported Nasacort (Triamcinolone Acetonide) 10.8 Ml [place] Unknown Dose NS DAILY 12/24/14 Reported [Oxycodone Hcl/Acetaminophen] 1 TAB Tablet 2 Tab PO PRN Q4HRS PRN 11/28/14 Rx [Oxycodone Hcl/Acetaminophen] 1 TAB Tablet 1 Tab PO PRN Q4HRS PRN 11/28/14 Rx Colace (Docusate Sodium) 100 Mg Capsule 100 Mg PO BID 11/28/14 Rx Cyclobenzaprine Hcl 10 Mg Tablet 10 Mg PO PRN TID PRN 11/19/14 Reported LAST DOSE GIVEN: DATE:11-28-14 TIME:0300 NEXT DOSE DUE: DATE:11-28-14 TIME:9:00 p.m. Stool Softener Tablet (Sennosides/Docusate Sodium) 1 Each Tablet 1 Each PO DAILY 11/19/14 Reported LAST DOSE GIVEN: DATE:11-28-14 TIME:9:00 a.m. NEXT DOSE DUE: DATE:11-29-14 TIME:9:00 a.m. Lisinopril 10 Mg Tablet 10 Mg PO DAILY 11/19/14 Reported LAST DOSE GIVEN: DATE:11-28-14 TIME:9:00 a.m. NEXT DOSE DUE: DATE:11-29-14 TIME:9:[address] reviewed mild alveolitis, atelectasis of the right lower lobe CT HEAD IMPRESSION: No acute intracranial abnormality. 10/25: CXR IMPRESSION: Marked interval improvement in aeration of the lungs with minimal residual bibasilar opacities that could be atelectatic in etiology. Impression . IMPRESSION: 1. Acute respiratory failure secondary to angioedema.-resolved 2. Angioedema secondary to ARYA inhibitor-resolved 3. Abnormal chest x-ray with right hilar prominence, will need ct chest post extubation-- reviewed 4. Hypertension. 5. electrolyte imbalance, hypo k 6. Tracheobronchitis, started on Abx 10/21 7. Abnormal cxr 10/22, small effusions 8. Encephalopathy, suspect metabolic, possibly toxic-- ongoing 9.Fever 10. leukocytosis 1. No hilar mass or adenopathy. 2. Patchy groundglass attenuation to the lungs. Correlate clinically for any evidence of atypical pneumonia. 3. Small left pleural effusion and right pleural thickening that could reflect sequela of old hemorrhage. Attention on follow-up could be beneficial. Plan . Clinically stable from Pulmonary standpoint Continue supplemental oxygen if needed remains on room air --extubated 10/23/19 CXR- improved cont. IV steroids w/taper Cont. ABX -- per ID Follow psych recs IS at bedside Follow speech recommendations PT/OT D/W ELIDIA DIEGO MD Oct 27, 2019 08:21
--- NOTE | 2019-10-27 09:27 | PDOC ---
Infectious Disease Note Subjective: Subjective Patient says feels better Still has trouble remembering things Denies any fever, chills, nausea, vomiting, headache, sore throat, cough Has some pain left leg Vital Signs: Vital Signs Vital Signs Date Time Temp Pulse Resp B/P (MAP) Pulse Ox O2 Delivery O2 Flow Rate FiO2 10/27/19 08:00 Room Air 10/27/19 07:00 99.0 79 16 120/79 (93) 98 99.0 Physical Exam: PHYSICAL EXAM GENERAL: Alert, awake, , lying in bed comfortably, in no acute distress. HEENT: Normocephalic, atraumatic, anicteric. NECK: Supple. No JVD. LUNGS: Clear bilaterally. HEART: S1, S2. No gallops or murmurs. ABDOMEN: Soft, nontender, nondistended. No rebound, no guarding. EXTREMITIES: No edema, no cyanosis. NEUROLOGIC: Alert, awake. DERMATOLOGIC: Warm and dry. No generalized rash. PSYCHIATRIC: Cooperative. Medications: Inpatient Meds: Current Medications Medications (Trade) Dose Ordered Sig/Oneyda Start Time Stop Time Status Last Admin Dose Admin Acetaminophen (Tylenol) 650 mg PRN Q6HRS PRN 10/19/19 10:45 10/27/19 08:08 650 MG Amino Acids/ Glycerin/ Electrolytes 1,000 ml @ 80 mls/hr [id number] 10/24/19 22:30 10/26/19 16:00 DC 10/25/19 23:59 80 MLS/HR Chlorhexidine Gluconate (Peridex) 15 ml BID 10/19/19 09:00 10/24/19 16:32 DC 10/24/19 08:35 15 ML Diphenhydramine HCl (Benadryl) 25 mg PRN Q6HRS PRN 10/19/19 10:45 10/25/19 14:09 DC 10/23/19 03:53 25 MG Docusate Sodium (Colace) 100 mg BID 10/19/19 21:00 10/27/19 08:08 100 MG Doxycycline Hyclate 100 mg/ Dextrose 100 ml @ 50 mls/hr Q12HR 10/25/19 14:00 10/27/19 08:09 50 MLS/HR Enoxaparin Sodium (Lovenox 40mg Syringe) 40 mg Q24H 10/19/19 10:00 10/26/19 09:03 40 MG Etomidate (Amidate) 20 mg 1X ONCE 10/19/19 08:00 10/19/19 08:01 DC 10/19/19 06:55 20 MG Famotidine (Pepcid Vial) 20 mg BID 10/19/19 10:00 10/27/19 08:08 20 MG Fentanyl Citrate 30 ml @ 2.5 mls/hr CONT PRN 10/19/19 10:30 10/24/19 16:32 DC 10/23/19 04:25 2.5 MLS/HR Fentanyl Citrate (Fentanyl 2ml Vial) 50 mcg PRN Q1HR PRN 10/19/19 07:00 10/25/19 14:09 DC 10/19/19 09:28 50 MCG Furosemide (Lasix) 40 mg 1X ONCE 10/23/19 09:45 10/23/19 09:46 DC 10/23/19 09:42 40 MG Insulin Human Lispro (HumaLOG) 0-8 UNITS Q6HRS 10/21/19 12:00 10/22/19 17:22 2 UNITS Lactobacillus Rhamnosus (Culturelle) 1 cap BID 10/26/19 21:00 10/27/19 08:08 1 CAP Levofloxacin/ Dextrose 150 ml @ 100 mls/hr Q24H 10/22/19 10:00 10/25/19 13:52 DC 10/25/19 10:53 100 MLS/HR Levofloxacin/ Dextrose (Levaquin Per Pharmacy) 1 each PRN DAILY PRN 10/22/19 09:15 10/25/19 14:58 DC Linezolid/Dextrose 300 ml @ 300 mls/hr Q12HR 10/25/19 14:00 10/27/19 01:21 300 MLS/HR Methylprednisolone Sodium Succinate (SOLU-Medrol 40MG VIAL) 20 mg BID 10/25/19 09:00 10/26/19 10:39 DC 10/26/19 07:42 20 MG Methylprednisolone Sodium Succinate (SOLU-Medrol 125MG VIAL) 125 mg 1X ONCE 10/19/19 07:00 10/19/19 07:01 DC 10/19/19 06:37 125 MG Midazolam HCl (Versed) 5 mg 1X ONCE 10/19/19 08:00 10/19/19 08:01 DC 10/19/19 08:00 5 MG Potassium Chloride 20 meq/ Sodium Chloride 1,010 ml @ 75 mls/hr [id number] 10/20/19 10:00 UNV Potassium Chloride/Sodium Chloride 1,000 ml @ 75 mls/hr [id number] 10/20/19 10:15 10/25/19 15:38 DC 10/25/19 10:55 75 MLS/HR Potassium Chloride/Water 100 ml @ 100 mls/hr Q1H 10/25/19 10:00 10/25/19 11:59 DC 10/25/19 13:02 100 MLS/HR Potassium Chloride (Klor-Con) 40 meq 1X ONCE 10/26/19 10:45 10/26/19 10:46 DC 10/26/19 11:59 40 MEQ Prednisone (Prednisone) 10 mg 1X ONCE 10/29/19 10:45 10/29/19 10:46 Propofol 50 ml @ As Directed STK-MED ONCE 10/19/19 07:34 10/19/19 07:34 DC Risperidone (RisperDAL) 1 mg BID 10/25/19 21:00 10/27/19 08:08 1 MG Sodium Chloride 1,000 ml @ 125 mls/hr Q8H 10/19/19 07:15 10/20/19 07:14 DC 10/19/19 21:48 125 MLS/HR Succinylcholine Chloride (Anectine) 100 mg 1X ONCE 10/19/19 08:00 10/19/19 08:01 DC 10/19/19 06:55 100 MG Labs: Lab Laboratory Tests Test 10/26/19 11:45 10/26/19 16:06 10/26/19 21:04 10/27/19 04:35 Glucose (Fingerstick) 109 mg/dL (70-99) 104 mg/dL (70-99) 100 mg/dL (70-99) White Blood Count 14.5 x10^3/uL (4.0-11.0) Red Blood Count 4.09 x10^6/uL (3.50-5.40) Hemoglobin 11.4 g/dL (12.0-15.5) Hematocrit 34.5 % (36.0-47.0) Mean Corpuscular Volume 84 fL (79-100) Mean Corpuscular Hemoglobin 28 pg (25-35) Mean Corpuscular Hemoglobin Concent 33 g/dL (31-37) Red Cell Distribution Width 12.8 % (11.5-14.5) Platelet Count 320 x10^3/uL (140-400) Neutrophils (%) (Auto) 63 % (31-73) Lymphocytes (%) (Auto) 28 % (24-48) Monocytes (%) (Auto) 7 % (0-9) Eosinophils (%) (Auto) 1 % (0-3) Basophils (%) (Auto) 1 % (0-3) Neutrophils # (Auto) 9.1 x10^3/uL (1.8-7.7) Lymphocytes # (Auto) 4.1 x10^3/uL (1.0-4.8) Monocytes # (Auto) 1.0 x10^3/uL (0.0-1.1) Eosinophils # (Auto) 0.2 x10^3/uL (0.0-0.7) Basophils # (Auto) 0.1 x10^3/uL (0.0-0.2) Sodium Level 141 mmol/L (136-145) Potassium Level 3.0 mmol/L (3.5-5.1) Chloride Level 108 mmol/L (98-107) Carbon Dioxide Level 20 mmol/L (21-32) Anion Gap 13 (6-14) Blood Urea Nitrogen 16 mg/dL (7-20) Creatinine 0.8 mg/dL (0.6-1.0) Estimated GFR (Cockcroft-Gault) 92.2 Glucose Level 127 mg/dL (70-99) Calcium Level 8.8 mg/dL (8.5-10.1) Magnesium Level 1.9 mg/dL (1.8-2.4) Total Bilirubin 0.5 mg/dL (0.2-1.0) Direct Bilirubin 0.2 mg/dL (0.0-0.2) Aspartate Amino Transf (AST/SGOT) 53 U/L (15-37) Alanine Aminotransferase (ALT/SGPT) 219 U/L (14-59) Alkaline Phosphatase 68 U/L (46-116) Total Protein 6.8 g/dL (6.4-8.2) Albumin 3.3 g/dL (3.4-5.0) Test 10/27/19 06:06 10/27/19 07:06 Glucose (Fingerstick) 97 mg/dL (70-99) 98 mg/dL (70-99) Objective: Assessment: Fever pattern improving Leukocytosis, steroid Hallucinations Acute respiratory failure from acute angioedema Gout Sputum culture positive for staph aureus MSSA Hypertension Penicillin allergy unknown reaction Status post Levaquin Plan: Plan of Care Continue Zyvox DC Doxycycline Follow-up labs and culture Continue aspiration precaution FRANSISCO ABARCA MD Oct 27, 2019 09:27
[2019-10-27] MEDS ORDERED: POTASSIUM CHLORIDE 20 MEQ TABLET.ER. PO ONE ×2 (10:30→12:30)
--- NOTE | 2019-10-27 10:35 | PDOC ---
PROGRESS NOTES Subjective Subjective pt smiling and able to participate in conversation Objective Objective Vital Signs Date Time Temp Pulse Resp B/P (MAP) Pulse Ox O2 Delivery O2 Flow Rate FiO2 10/27/19 08:00 Room Air 10/27/19 07:00 99.0 79 16 120/79 (93) 98 99.0 Intake and Output 10/27/19 07:00 Intake Total 320 ml Output Total 1200 ml Balance -880 ml Intake Oral 320 ml Output Urine Total 1200 ml Bladder Scan Volume Amount # Voids 4 # Bowel Movements 2 Physical Exam Abdomen: Normal bowel sounds Heart: Regular rate, Normal S1 Extremities: No clubbing General: Other HEENT: Atraumatic Lungs: Other MUSCULOSKELETAL: No swelling, Other Skin: No breakdown Diagnosis Problem List Problems Medical Problems: (1) ARYA inhibitor-aggravated angioedema Status: Acute (2) Airway compromise Status: Acute (3) Angio-edema Status: Acute Assessment Assessment IMP: Acute Psychosis ,ICU psychosis vs Infection 1. Acute respiratory failure due to acute angioedema likely due to lisinopril. 2. Acute gout, left ankle 3. Hypertension. 4. Acute angioedema. 5. Fever ?lung infection PLAN:clinically improving on resperidone, psyche consult appreciated wbc 14 down ,fever down cxr no infiltrates. sputum MSSA oral prednisone+po zyvox ? d/c home tomorrow pot 3.0, replace LFT high monitor Plan Plan of Care Problems Medical Problems: (1) ARYA inhibitor-aggravated angioedema Status: Acute (2) Airway compromise Status: Acute (3) Angio-edema Status: Acute Comment Review of Relevant I have reviewed the following items sinan (where applicable) has been applied. Labs Laboratory Tests Test 10/26/19 11:45 10/26/19 16:06 10/26/19 21:04 10/27/19 04:35 Glucose (Fingerstick) 109 mg/dL (70-99) 104 mg/dL (70-99) 100 mg/dL (70-99) White Blood Count 14.5 x10^3/uL (4.0-11.0) Red Blood Count 4.09 x10^6/uL (3.50-5.40) Hemoglobin 11.4 g/dL (12.0-15.5) Hematocrit 34.5 % (36.0-47.0) Mean Corpuscular Volume 84 fL (79-100) Mean Corpuscular Hemoglobin 28 pg (25-35) Mean Corpuscular Hemoglobin Concent 33 g/dL (31-37) Red Cell Distribution Width 12.8 % (11.5-14.5) Platelet Count 320 x10^3/uL (140-400) Neutrophils (%) (Auto) 63 % (31-73) Lymphocytes (%) (Auto) 28 % (24-48) Monocytes (%) (Auto) 7 % (0-9) Eosinophils (%) (Auto) 1 % (0-3) Basophils (%) (Auto) 1 % (0-3) Neutrophils # (Auto) 9.1 x10^3/uL (1.8-7.7) Lymphocytes # (Auto) 4.1 x10^3/uL (1.0-4.8) Monocytes # (Auto) 1.0 x10^3/uL (0.0-1.1) Eosinophils # (Auto) 0.2 x10^3/uL (0.0-0.7) Basophils # (Auto) 0.1 x10^3/uL (0.0-0.2) Sodium Level 141 mmol/L (136-145) Potassium Level 3.0 mmol/L (3.5-5.1) Chloride Level 108 mmol/L (98-107) Carbon Dioxide Level 20 mmol/L (21-32) Anion Gap 13 (6-14) Blood Urea Nitrogen 16 mg/dL (7-20) Creatinine 0.8 mg/dL (0.6-1.0) Estimated GFR (Cockcroft-Gault) 92.2 Glucose Level 127 mg/dL (70-99) Calcium Level 8.8 mg/dL (8.5-10.1) Magnesium Level 1.9 mg/dL (1.8-2.4) Total Bilirubin 0.5 mg/dL (0.2-1.0) Direct Bilirubin 0.2 mg/dL (0.0-0.2) Aspartate Amino Transf (AST/SGOT) 53 U/L (15-37) Alanine Aminotransferase (ALT/SGPT) 219 U/L (14-59) Alkaline Phosphatase 68 U/L (46-116) Total Protein 6.8 g/dL (6.4-8.2) Albumin 3.3 g/dL (3.4-5.0) Test 10/27/19 06:06 10/27/19 07:06 Glucose (Fingerstick) 97 mg/dL (70-99) 98 mg/dL (70-99) Microbiology 10/25/19 Urine Culture - Final, Complete 10/25/19 Blood Culture - Preliminary, Resulted NO GROWTH AFTER 1 DAY 10/23/19 Gram Stain Evaluation - Final, Complete 10/23/19 Respiratory Culture - Final, Complete 10/23/19 Antimicrobic Susceptibility - Final, Complete Medications Current Medications Lactobacillus Rhamnosus (Culturelle) 1 cap BID PO Last administered on 10/27/19at 08:08; Start 10/26/19 at 21:00 Linezolid (Zyvox) 600 mg BID PO ; Start 10/27/19 at 21:00 Potassium Chloride (Klor-Con) 40 meq 1X ONCE PO Last administered on 10/26/19at 11:59; Start 10/26/19 at 10:45; Stop 10/26/19 at 10:46; Status DC Prednisone (Prednisone) 10 mg 1X ONCE PO ; Start 10/29/19 at 10:45; Stop at 10:46 Prednisone (Prednisone) 20 mg 1X ONCE PO ; Start 10/28/19 at 10:45; Stop 10/28/19 at 10:46 Prednisone (Prednisone) 30 mg 1X ONCE PO ; Start 10/27/19 at 10:45; Stop 10/27/19 at 10:46 Vitals/I & O Vital Sign - Last 24 Hours 10/26/19 10/26/19 10/26/19 10/26/19 11:14 15:19 19:00 19:45 Temp 97.5 98.5 98.8 97.5 98.5 98.8 Pulse 81 81 94 Resp 16 18 18 B/P (MAP) 115/81 (92) 125/73 (90) 140/91 (107) Pulse Ox 96 96 99 O2 Delivery Room Air Room Air Room Air 10/26/19 10/27/19 10/27/19 10/27/19 23:00 03:00 07:00 08:00 Temp 100.2 99.0 99.0 100.2 99.0 99.0 Pulse 84 83 79 Resp 18 18 16 B/P (MAP) 97/63 (74) 107/72 (84) 120/79 (93) Pulse Ox 95 96 98 O2 Delivery Room Air Room Air Intake and Output 10/26/19 10/26/19 10/27/19 15:00 23:00 07:00 Intake Total 120 ml 200 ml Output Total 1200 ml Balance 120 ml 200 ml -1200 ml Justicifation of Admission Dx: Justifications for Admission: Justification of Admission Dx: Yes Respiratory Failure: Airway Obstruction CIRA MARCH MD Oct 27, 2019 10:35
[2019-10-27] MEDS ORDERED: predniSONE 10 MG TABLET PO ONE (10:45)
[2019-10-27 11:00] VITALS: BP 113/70
[2019-10-27 15:00] VITALS: BP 124/85
[2019-10-27 19:00] VITALS: BP 122/83
[2019-10-27] MEDS: LINEZOLID 600 MG TABLET PO SCH (20:42)
[2019-10-27] MEDS ORDERED: FAMOTIDINE 20 MG TABLET. PO SCH (21:00)
[2019-10-27 23:00] VITALS: BP 133/85
[2019-10-28 03:00] VITALS: BP 115/73
[2019-10-28 04:36] LABS: BASO % 0 % (0-3); EOS # 0.1 x10^3/uL (0.0-0.7); EOS % 1 % (0-3); HEMATOCRIT 34.2 % (36.0-47.0); HEMOGLOBIN 11.2 g/dL (12.0-15.5); LYMPH # 4.9 x10^3/uL (1.0-4.8); LYMPH % 32 % (24-48); MEAN CORPUSCULAR HEMOGLOBIN 28 pg (25-35); MEAN CORPUSCULAR HGB CONC 33 g/dL (31-37); MEAN CORPUSCULAR VOLUME 85 fL (79-100); MONO # 0.9 x10^3/uL (0.0-1.1); MONO % 6 % (0-9); NEUT # 9.4 x10^3/uL (1.8-7.7); NEUT % 61 % (31-73); PLATELET COUNT 332 x10^3/uL (140-400); RED BLOOD COUNT 4.02 x10^6/uL (3.50-5.40); WHITE BLOOD COUNT 15.3 x10^3/uL (4.0-11.0)
[2019-10-28 05:07] LABS: ALBUMIN 3.2 g/dL (3.4-5.0); CALCIUM 8.8 mg/dL (8.5-10.1); CREATININE 0.8 mg/dL (0.6-1.0); DIRECT BILIRUBIN 0.2 mg/dL (0.0-0.2); GFR 92.2; POTASSIUM 3.3 mmol/L (3.5-5.1); TOTAL BILIRUBIN 0.4 mg/dL (0.2-1.0); TOTAL PROTEIN 7.1 g/dL (6.4-8.2)
[2019-10-28] MEDS: INSULIN LISPRO 300 UNITS/3 ML VIAL. SQ SCH ×2 (05:43)
[2019-10-28 07:00] VITALS: BP 131/87
[2019-10-28] MEDS: LACTOBACILLUS RHAMNOSUS GG 1 CAPSULE. PO SCH (08:42)
[2019-10-28] MEDS: DOCUSATE SODIUM 100 MG CAPSULE. PO SCH (08:42)
[2019-10-28] MEDS: risperiDONE 1 MG TABLET. PO SCH ×2 (08:43→09:52)
[2019-10-28] MEDS: LINEZOLID 600 MG TABLET PO SCH ×2 (08:43→09:52)
--- NOTE | 2019-10-28 09:00 | NUR ---
Awaiting Dr. Segura to come discharge her refuses am meal and medications, conversation although is disjointed & rambling, will continue to observe
--- NOTE | 2019-10-28 09:52 | PDOC ---
Infectious Disease Note Subjective: Subjective Patient says feels better Eager for discharge home today Denies any complaints Vital Signs: Vital Signs Vital Signs Date Time Temp Pulse Resp B/P (MAP) Pulse Ox O2 Delivery O2 Flow Rate FiO2 10/28/19 07:00 98.4 93 18 131/87 (102) 100 Room Air 98.4 Physical Exam: PHYSICAL EXAM GENERAL: Alert, awake, , in no acute distress. HEENT: Normocephalic, atraumatic, anicteric. NECK: Supple. No JVD. LUNGS: Clear bilaterally. HEART: S1, S2. No gallops or murmurs. ABDOMEN: Soft, nontender, nondistended. No rebound, no guarding. EXTREMITIES: No edema, no cyanosis. NEUROLOGIC: Alert, awake. DERMATOLOGIC: Warm and dry. No generalized rash. PSYCHIATRIC: Cooperative. Medications: Inpatient Meds: Current Medications Medications (Trade) Dose Ordered Sig/Oneyda Start Time Stop Time Status Last Admin Dose Admin Acetaminophen (Tylenol) 650 mg PRN Q6HRS PRN 10/19/19 10:45 10/27/19 08:08 650 MG Amino Acids/ Glycerin/ Electrolytes 1,000 ml @ 80 mls/hr [id number] 10/24/19 22:30 10/26/19 16:00 DC 10/25/19 23:59 80 MLS/HR Chlorhexidine Gluconate (Peridex) 15 ml BID 10/19/19 09:00 10/24/19 16:32 DC 10/24/19 08:35 15 ML Diphenhydramine HCl (Benadryl) 25 mg PRN Q6HRS PRN 10/19/19 10:45 10/25/19 14:09 DC 10/23/19 03:53 25 MG Docusate Sodium (Colace) 100 mg BID 10/19/19 21:00 10/27/19 20:42 100 MG Doxycycline Hyclate 100 mg/ Dextrose 100 ml @ 50 mls/hr Q12HR 10/25/19 14:00 10/27/19 09:23 DC 10/27/19 08:09 50 MLS/HR Enoxaparin Sodium (Lovenox 40mg Syringe) 40 mg Q24H 10/19/19 10:00 10/27/19 11:03 40 MG Etomidate (Amidate) 20 mg 1X ONCE 10/19/19 08:00 10/19/19 08:01 DC 10/19/19 06:55 20 MG Famotidine (Pepcid Vial) 20 mg BID 10/19/19 10:00 10/27/19 10:31 DC 10/27/19 08:08 20 MG Famotidine (Pepcid) 20 mg QHS 10/27/19 21:00 10/27/19 20:42 20 MG Fentanyl Citrate 30 ml @ 2.5 mls/hr CONT PRN 10/19/19 10:30 10/24/19 16:32 DC 10/23/19 04:25 2.5 MLS/HR Fentanyl Citrate (Fentanyl 2ml Vial) 50 mcg PRN Q1HR PRN 10/19/19 07:00 10/25/19 14:09 DC 10/19/19 09:28 50 MCG Furosemide (Lasix) 40 mg 1X ONCE 10/23/19 09:45 10/23/19 09:46 DC 10/23/19 09:42 40 MG Insulin Human Lispro (HumaLOG) 0-8 UNITS Q6HRS 10/21/19 12:00 10/22/19 17:22 2 UNITS Lactobacillus Rhamnosus (Culturelle) 1 cap BID 10/26/19 21:00 10/27/19 20:42 1 CAP Levofloxacin/ Dextrose 150 ml @ 100 mls/hr Q24H 10/22/19 10:00 10/25/19 13:52 DC 10/25/19 10:53 100 MLS/HR Levofloxacin/ Dextrose (Levaquin Per Pharmacy) 1 each PRN DAILY PRN 10/22/19 09:15 10/25/19 14:58 DC Linezolid (Zyvox) 600 mg BID 10/27/19 21:00 10/27/19 20:42 600 MG Linezolid/Dextrose 300 ml @ 300 mls/hr Q12HR 10/25/19 14:00 10/27/19 09:23 DC 10/27/19 01:21 300 MLS/HR Methylprednisolone Sodium Succinate (SOLU-Medrol 40MG VIAL) 20 mg BID 10/25/19 09:00 10/26/19 10:39 DC 10/26/19 07:42 20 MG Methylprednisolone Sodium Succinate (SOLU-Medrol 125MG VIAL) 125 mg 1X ONCE 10/19/19 07:00 10/19/19 07:01 DC 10/19/19 06:37 125 MG Midazolam HCl (Versed) 5 mg 1X ONCE 10/19/19 08:00 10/19/19 08:01 DC 10/19/19 08:00 5 MG Potassium Chloride 20 meq/ Sodium Chloride 1,010 ml @ 75 mls/hr [id number] 10/20/19 10:00 UNV Potassium Chloride/Sodium Chloride 1,000 ml @ 75 mls/hr [id number] 10/20/19 10:15 10/25/19 15:38 DC 10/25/19 10:55 75 MLS/HR Potassium Chloride/Water 100 ml @ 100 mls/hr Q1H 10/25/19 10:00 10/25/19 11:59 DC 10/25/19 13:02 100 MLS/HR Potassium Chloride (Klor-Con) 40 meq 1X ONCE 10/27/19 12:30 10/27/19 12:31 DC 10/27/19 12:39 40 MEQ Prednisone (Prednisone) 10 mg 1X ONCE 10/29/19 10:45 10/29/19 10:46 Propofol 50 ml @ As Directed STK-MED ONCE 10/19/19 07:34 10/19/19 07:34 DC Risperidone (RisperDAL) 1 mg BID 10/25/19 21:00 10/27/19 20:42 1 MG Sodium Chloride 1,000 ml @ 125 mls/hr Q8H 10/19/19 07:15 10/20/19 07:14 DC 10/19/19 21:48 125 MLS/HR Succinylcholine Chloride (Anectine) 100 mg 1X ONCE 10/19/19 08:00 10/19/19 08:01 DC 10/19/19 06:55 100 MG Labs: Lab Laboratory Tests Test 10/27/19 11:14 10/27/19 16:09 10/27/19 20:57 10/28/19 03:50 Glucose (Fingerstick) 109 mg/dL (70-99) 134 mg/dL (70-99) 104 mg/dL (70-99) White Blood Count 15.3 x10^3/uL (4.0-11.0) Red Blood Count 4.02 x10^6/uL (3.50-5.40) Hemoglobin 11.2 g/dL (12.0-15.5) Hematocrit 34.2 % (36.0-47.0) Mean Corpuscular Volume 85 fL (79-100) Mean Corpuscular Hemoglobin 28 pg (25-35) Mean Corpuscular Hemoglobin Concent 33 g/dL (31-37) Red Cell Distribution Width 13.0 % (11.5-14.5) Platelet Count 332 x10^3/uL (140-400) Neutrophils (%) (Auto) 61 % (31-73) Lymphocytes (%) (Auto) 32 % (24-48) Monocytes (%) (Auto) 6 % (0-9) Eosinophils (%) (Auto) 1 % (0-3) Basophils (%) (Auto) 0 % (0-3) Neutrophils # (Auto) 9.4 x10^3/uL (1.8-7.7) Lymphocytes # (Auto) 4.9 x10^3/uL (1.0-4.8) Monocytes # (Auto) 0.9 x10^3/uL (0.0-1.1) Eosinophils # (Auto) 0.1 x10^3/uL (0.0-0.7) Basophils # (Auto) 0.0 x10^3/uL (0.0-0.2) Sodium Level 141 mmol/L (136-145) Potassium Level 3.3 mmol/L (3.5-5.1) Chloride Level 107 mmol/L (98-107) Carbon Dioxide Level 22 mmol/L (21-32) Anion Gap 12 (6-14) Blood Urea Nitrogen 17 mg/dL (7-20) Creatinine 0.8 mg/dL (0.6-1.0) Estimated GFR (Cockcroft-Gault) 92.2 Glucose Level 113 mg/dL (70-99) Calcium Level 8.8 mg/dL (8.5-10.1) Total Bilirubin 0.4 mg/dL (0.2-1.0) Direct Bilirubin 0.2 mg/dL (0.0-0.2) Aspartate Amino Transf (AST/SGOT) 36 U/L (15-37) Alanine Aminotransferase (ALT/SGPT) 175 U/L (14-59) Alkaline Phosphatase 64 U/L (46-116) Total Protein 7.1 g/dL (6.4-8.2) Albumin 3.2 g/dL (3.4-5.0) Test 10/28/19 05:40 Glucose (Fingerstick) 123 mg/dL (70-99) Objective: Assessment: Fever resolved Leukocytosis, steroid Hallucinations improved likely delirium Acute respiratory failure from acute angioedema Gout Sputum culture positive for staph aureus MSSA Hypertension Penicillin allergy unknown reaction Status post Levaquin Plan: Plan of Care Complete Zyvox Discussed with nursing FRANSISCO ABARCA MD Oct 28, 2019 09:52
--- NOTE | 2019-10-28 09:53 | NUR ---
After speaking with Dr. Segura agreeable to some medications, given Zyvox & Resperidone, awaiting parent for dismissal home
[2019-10-28] MEDS ORDERED: POTASSIUM CHLORIDE 20 MEQ TABLET.ER. PO ONE (10:00)
--- NOTE | 2019-10-28 10:02 | PDOC ---
PROGRESS NOTES Subjective Subjective all dressed up ready to go home Objective Objective Vital Signs Date Time Temp Pulse Resp B/P (MAP) Pulse Ox O2 Delivery O2 Flow Rate FiO2 10/28/19 07:00 98.4 93 18 131/87 (102) 100 Room Air 98.4 Intake and Output0 10/28/19 07:00 Intake Total 120 ml Output Total 800 ml Balance -680 ml Intake Oral 120 ml Output Urine Total 800 ml # Voids 1 Physical Exam Abdomen: Normal bowel sounds Heart: Regular rate, Normal S1 Extremities: No clubbing General: Other HEENT: Atraumatic Lungs: Other MUSCULOSKELETAL: No swelling, Other Skin: No breakdown Diagnosis Problem List Problems Medical Problems: (1) ARYA inhibitor-aggravated angioedema Status: Acute (2) Airway compromise Status: Acute (3) Angio-edema Status: Acute Assessment Assessment IMP: Acute Psychosis ,ICU psychosis vs Infection resolving 1. Acute respiratory failure due to acute angioedema likely due to lisinopril. 2. Acute gout, left ankle 3. Hypertension. 4. Acute angioedema. 5. Fever ?lung infection PLAN:clinically improving on risperidone, psyche consult appreciated wbc 14 down ,fever down cxr no infiltrates. sputum MSSA d/c oral prednisone after today dose po zyvox for 2 more days ? d/c home today, spoke with pts mom , told her that some one has to keep her for couple of days at home ,no driving pot 3.2, replace LFT trending down f/u office in 1 week Plan Plan of Care Problems Medical Problems: (1) ARYA inhibitor-aggravated angioedema Status: Acute (2) Airway compromise Status: Acute (3) Angio-edema Status: Acute Comment Review of Relevant I have reviewed the following items sinan (where applicable) has been applied. Labs Laboratory Tests Test 10/27/19 11:14 10/27/19 16:09 10/27/19 20:57 10/28/19 03:50 Glucose (Fingerstick) 109 mg/dL (70-99) 134 mg/dL (70-99) 104 mg/dL (70-99) White Blood Count 15.3 x10^3/uL (4.0-11.0) Red Blood Count 4.02 x10^6/uL (3.50-5.40) Hemoglobin 11.2 g/dL (12.0-15.5) Hematocrit 34.2 % (36.0-47.0) Mean Corpuscular Volume 85 fL (79-100) Mean Corpuscular Hemoglobin 28 pg (25-35) Mean Corpuscular Hemoglobin Concent 33 g/dL (31-37) Red Cell Distribution Width 13.0 % (11.5-14.5) Platelet Count 332 x10^3/uL (140-400) Neutrophils (%) (Auto) 61 % (31-73) Lymphocytes (%) (Auto) 32 % (24-48) Monocytes (%) (Auto) 6 % (0-9) Eosinophils (%) (Auto) 1 % (0-3) Basophils (%) (Auto) 0 % (0-3) Neutrophils # (Auto) 9.4 x10^3/uL (1.8-7.7) Lymphocytes # (Auto) 4.9 x10^3/uL (1.0-4.8) Monocytes # (Auto) 0.9 x10^3/uL (0.0-1.1) Eosinophils # (Auto) 0.1 x10^3/uL (0.0-0.7) Basophils # (Auto) 0.0 x10^3/uL (0.0-0.2) Sodium Level 141 mmol/L (136-145) Potassium Level 3.3 mmol/L (3.5-5.1) Chloride Level 107 mmol/L (98-107) Carbon Dioxide Level 22 mmol/L (21-32) Anion Gap 12 (6-14) Blood Urea Nitrogen 17 mg/dL (7-20) Creatinine 0.8 mg/dL (0.6-1.0) Estimated GFR (Cockcroft-Gault) 92.2 Glucose Level 113 mg/dL (70-99) Calcium Level 8.8 mg/dL (8.5-10.1) Total Bilirubin 0.4 mg/dL (0.2-1.0) Direct Bilirubin 0.2 mg/dL (0.0-0.2) Aspartate Amino Transf (AST/SGOT) 36 U/L (15-37) Alanine Aminotransferase (ALT/SGPT) 175 U/L (14-59) Alkaline Phosphatase 64 U/L (46-116) Total Protein 7.1 g/dL (6.4-8.2) Albumin 3.2 g/dL (3.4-5.0) Test 10/28/19 05:40 Glucose (Fingerstick) 123 mg/dL (70-99) Microbiology 10/25/19 Urine Culture - Final, Complete 10/25/19 Blood Culture - Preliminary, Resulted NO GROWTH AFTER 2 DAYS 10/23/19 Gram Stain Evaluation - Final, Complete 10/23/19 Respiratory Culture - Final, Complete 10/23/19 Antimicrobic Susceptibility - Final, Complete Medications Current Medications Famotidine (Pepcid) 20 mg QHS PO Last administered on 10/27/19at 20:42; Start 10/27/19 at 21:00 Linezolid (Zyvox) 600 mg BID PO Last administered on 10/28/19at 09:52; Start 10/27/19 at 21:00 Potassium Chloride (Klor-Con) 40 meq 1X ONCE PO Last administered on 10/27/19at 11:01; Start 10/27/19 at 10:30; Stop 10/27/19 at 10:38; Status DC Potassium Chloride (Klor-Con) 40 meq 1X ONCE PO Last administered on 10/27/19at 12:39; Start 10/27/19 at 12:30; Stop 10/27/19 at 12:31; Status DC Prednisone (Prednisone) 10 mg 1X ONCE PO ; Start 10/29/19 at 10:45; Stop 10/29/19 at 10:46 Prednisone (Prednisone) 20 mg 1X ONCE PO ; Start 10/28/19 at 10:45; Stop 10/28/19 at 10:46 Prednisone (Prednisone) 30 mg 1X ONCE PO Last administered on 10/27/19at 11:01; Start 10/27/19 at 10:45; Stop 10/27/19 at 10:46; Status DC Vitals/I & O Vital Sign - Last 24 Hours 10/27/19 10/27/19 10/27/19 10/27/19 11:00 15:00 19:00 20:00 Temp 98.9 98.6 98.9 98.9 98.6 98.9 Pulse 84 107 113 Resp 16 16 18 B/P (MAP) 113/70 (84) 124/85 (98) 122/83 (96) Pulse Ox 96 97 99 O2 Delivery Room Air Room Air 10/27/19 10/28/19 10/28/19 23:00 03:00 07:00 Temp 98.6 99.1 98.4 98.6 99.1 98.4 Pulse 86 81 93 Resp 16 18 18 B/P (MAP) 133/85 (101) 115/73 (87) 131/87 (102) Pulse Ox 99 97 100 O2 Delivery Room Air Intake and Output 10/27/19 10/27/19 10/28/19 15:00 23:00 07:00 Intake Total 120 ml Output Total 800 ml Balance -680 ml Justicifation of Admission Dx: Justifications for Admission: Justification of Admission Dx: Yes Respiratory Failure: Airway Obstruction CIRA MARCH MD Oct 28, 2019 10:02
[2019-10-28] MEDS ORDERED: LINE600T12 PO (10:07)
[2019-10-28] MEDS ORDERED: RISP1TAB43 PO (10:07)
--- NOTE | 2019-10-28 10:29 | NUR ---
Discharged to home ambulatory accompanied by mother, discharge instructions given to mother instructed on NO driving, f/u in 1 week and medication to be given, see instruction sheet for details
--- NOTE | 2019-10-28 10:30 | NUR ---
SW following. Chart reviewed. Discharge order for home with self care. No SW needs.
[2019-10-28] MEDS ORDERED: predniSONE 20 MG TABLET PO ONE (10:45)
[2019-10-29] MEDS ORDERED: predniSONE 10 MG TABLET PO ONE (10:45)
--- NOTE | 2019-10-29 15:19 | PDOC ---
Provider Note Provider Note Discharge summary dictated.#[id number]. Justicifation of Admission Dx: Justifications for Admission: Justification of Admission Dx: Yes Respiratory Failure: Airway Obstruction CIRA MARCH MD Oct 29, 2019 15:19
--- NOTE | 2019-10-29 17:58 | DS ---
DATE OF DISCHARGE: 10/28/2019 REASON FOR ADMISSION TO THE HOSPITAL: Angioedema of the tongue, oral cavity, respiratory failure; the patient was intubated. CONSULTATIONS: 1. Dr. Jones, Pulmonology. 2. Dr. Leone, Infectious Disease. PROCEDURES DONE: 1. Intubation. 2. CT head. 3. CT chest. HOSPITAL COURSE: The patient is a 49-year-old female with history of hypertension. She was on lisinopril for hypertension. She also had swelling in the joint, ankle, was presumably thought to be gout, and was given prednisone, colchicine, and meloxicam. The patient developed swelling of the tongue, hard for her to talk and swallow. The patient was intubated and was admitted to the Intensive Care Unit. The patient was given intravenous Solu-Medrol and intravenous Levaquin. The patient was seen by Pulmonology. After 3-4 days in the hospital in the Intensive Care Unit, the patient was successfully extubated. The patient had developed confusion, delirium, and psychosis, probably thought related to Intensive Care Unit versus steroid-induced psychosis. The patient had no history of psychiatric problems. The patient was seen by Psychiatry and was put on Risperdal. The patient's condition was improving. She had a fever of 101 and also elevated white count. CT of the chest showed infiltrate in the lungs. The patient was treated for possible pneumonia with Zyvox and doxycycline. Infectious Disease was consulted. Sputum showed Staphylococcus aureus, which was oxacillin sensitive. The patient did improve clinically. Psychosis was much improved. White count was slightly high secondary to prednisone, steroids. Potassium was low and replaced. Liver function tests were slightly high and were coming down. COVID was negative. CT head was negative. CT chest showed infiltrates. Repeat chest x-ray shows clearing of the pneumonia. FINAL IMPRESSION: 1. Severe angioedema, probably secondary to lisinopril and ARYA inhibitors. The patient was intubated, on mechanical ventilator. 2. Possible pneumonia. The patient was on a ventilator and sputum shows Staphylococcus aureus, oxacillin sensitive. 3. 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 4. Hypertension. DISPOSITION: Home. DISCHARGE INSTRUCTIONS: The patient was continued on Zyprexa for a couple of days until her condition is improved; recommended to stay with her mom and not to drive until seen in the office in 1-2 weeks. The patient is recommended not to take lisinopril or related ARYA inhibitors in the future. CIRA MARCH MD DR: VENECIA/anita JOB#: [id number] / [id number]
== END 2019-10-28 10:40 | disposition home or self-care (01) | DRG 207 ==
LOC: ER 06:31 → 1 WEST ICU 07:00 → ER 08:13 → 6 SOUTH 10-24 16:24 → 4 NORTH 10-26 13:30
PROVIDERS: ADMIT Internal Medicine; ATTEND Internal Medicine
PROC: 5A1955Z Respiratory Ventilation, Greater than 96 Consecutive Hours (ICD-10-PCS; principal; 2019-10-19)
PROC: 30233K1 Transfusion of Nonautologous Frozen Plasma into Peripheral Vein, Percutaneous Approach (ICD-10-PCS; 2019-10-19)
PROC: 0BH17EZ Insertion of Endotracheal Airway into Trachea, Via Natural or Artificial Opening (ICD-10-PCS; 2019-10-19)
DX: J96.00 Acute respiratory failure, unspecified whether with hypoxia or hypercapnia (principal); J18.9 Pneumonia, unspecified organism; G93.40 Encephalopathy, unspecified; T78.3XXA Angioneurotic edema, initial encounter; T46.4X5A Adverse effect of angiotensin-converting-enzyme inhibitors, initial encounter; Z20.828 Contact with and (suspected) exposure to other viral communicable diseases; Z88.8 Allergy status to other drugs, medicaments and biological substances; Z79.899 Other long term (current) drug therapy; E87.6 Hypokalemia; F09 Unspecified mental disorder due to known physiological condition; F19.959 Other psychoactive substance use, unspecified with psychoactive substance-induced psychotic disorder, unspecified; F28 Other psychotic disorder not due to a substance or known physiological condition; F41.9 Anxiety disorder, unspecified; I10 Essential (primary) hypertension; J40 Bronchitis, not specified as acute or chronic; M10.9 Gout, unspecified; T38.0X5A Adverse effect of glucocorticoids and synthetic analogues, initial encounter; Z82.49 Family history of ischemic heart disease and other diseases of the circulatory system; Z83.3 Family history of diabetes mellitus; Z87.891 Personal history of nicotine dependence; Z88.0 Allergy status to penicillin; Z90.710 Acquired absence of both cervix and uterus; B95.61 Methicillin susceptible Staphylococcus aureus infection as the cause of diseases classified elsewhere
CPT/HCPCS: 31500; 36415; 36600; 51702; 51798; 70450; 71045; 71046; 71250; 80048; 80053; 80076; 81001; 82805; 82962; 83605; 83735; 84550; 85007; 85025; 85610; 85730; 86140; 86850; 86900; 86901; 86927; 87040; 87070; 87077; 87086; 87186; 87205; 94002; 94003; 96361; 96374; 96375; 99291; J0330; J1200; J1650; J1815; J1940; J1956; J2020; J2250; J2704; J2920; J2930; J3010; J3480; J3490; J7030; J7060; J7512; P9017; 92610-GN; G0378; U0003-CS